=== PATIENT | female | born 1965 | race Caucasian/White ===

== ENCOUNTER → 2017-03-03 | Outpatient (POV) | payer BC, SELFPAY | PROVIDERS: Visit Provider Podiatrist ==

== ENCOUNTER 2017-03-28 09:45 | Outpatient (POV) | payer BC, SELFPAY | END 2017-03-28 11:53 | disposition home or self-care (01) | PROVIDERS: Visit Provider Podiatrist | DX: E11.42 Type 2 diabetes mellitus with diabetic polyneuropathy (principal); E11.621 Type 2 diabetes mellitus with foot ulcer; L89.619 Pressure ulcer of right heel, unspecified stage | CPT/HCPCS: 11042; 99213 ==

== ENCOUNTER → 2017-03-31 | Outpatient (POV) | payer BC, SELFPAY | PROVIDERS: Visit Provider Podiatrist ==

== ENCOUNTER 2017-04-20 10:23 | Outpatient (POV) | payer BC, SELFPAY | END 2017-04-20 12:07 | disposition home or self-care (01) | PROVIDERS: Visit Provider Podiatrist | DX: E11.42 Type 2 diabetes mellitus with diabetic polyneuropathy (principal); E11.621 Type 2 diabetes mellitus with foot ulcer; L97.401 Non-pressure chronic ulcer of unspecified heel and midfoot limited to breakdown of skin | CPT/HCPCS: 99212; 11042 ==

== ENCOUNTER 2017-05-02 10:26 | Outpatient (POV) | payer BC, SELFPAY | END 2017-05-02 16:21 | disposition home or self-care (01) | PROVIDERS: Visit Provider Podiatrist | DX: E11.621 Type 2 diabetes mellitus with foot ulcer (principal); L97.422 Non-pressure chronic ulcer of left heel and midfoot with fat layer exposed; G62.9 Polyneuropathy, unspecified | CPT/HCPCS: 99212; 11042 ==

== ENCOUNTER → 2017-05-12 | Outpatient (POV) | payer BC, SELFPAY | PROVIDERS: Visit Provider Podiatrist ==

== ENCOUNTER → 2017-05-17 | Outpatient (CLI) | payer BC, SELFPAY | PROVIDERS: Family Provider Family Medicine; Visit Provider Podiatrist | DX: E11.621 Type 2 diabetes mellitus with foot ulcer (principal); S91.301A Unspecified open wound, right foot, initial encounter; S91.302A Unspecified open wound, left foot, initial encounter; M79.605 Pain in left leg; M79.604 Pain in right leg | CPT/HCPCS: 93923 ==

== ENCOUNTER 2017-05-18 09:30 | Outpatient (RCR) | payer BC, SELFPAY | END 2017-05-18 23:59 | LOC: PT 09:30 | PROVIDERS: Visit Provider Podiatrist | DX: E11.621 Type 2 diabetes mellitus with foot ulcer (principal); S91.301A Unspecified open wound, right foot, initial encounter; S91.302A Unspecified open wound, left foot, initial encounter | CPT/HCPCS: 97163; 97597 ==

== ENCOUNTER 2017-06-01 10:00 | Outpatient (RCR) | payer BC, SELFPAY ==
--- NOTE | 2017-07-03 15:47 | HMH.RHREAS ---
Rehab Reassessment Rehab OP Re-assessment Start: 07/03/17 14:24 Freq: Status: Active Protocol: Document 07/03/17 14:24 ANDRES (Rec: 07/03/17 14:35 ANDRES [id number]) Electronically Signed By Juan A Su, PT 07/03/17 14:24 Rehab Re-assessment Subjective Subjective Pt reports left great toe wound re-opened 1-2 wks ago. Objective Objective Notes Left great toe wound: length = 1.0 cm, width = 1.0 cm, depth = 0.5 cm. Assessment Progress Assessment Progressing as Expected Assessment Notes Wound with heavy callous surrounding the wound opening. Patient goals met ST LT Goals Not Met ST,2,3,4 LT,2,3,4,5 Revised Goals none Plan Plan Continue per initial POC Frequency of Therapy 1-2 x/wk Duration of therapy 8 wks Time and Billing Re-Eval Time 15 Re-Eval Billing Units 1 PHYSICIAN CERTIFICATION: I certify the specified therapy services for Margareth Cardona are required, authorized, and reviewed every 30 days.
== END 2017-06-01 10:01 | disposition home or self-care (01) ==
LOC: PT 10:00
PROVIDERS: Visit Provider Podiatrist
DX: M79.671 Pain in right foot (principal); Z51.89 Encounter for other specified aftercare
CPT/HCPCS: 97164; 97597

== ENCOUNTER → 2017-06-08 10:24 | Outpatient (CLI) | payer BC, SELFPAY ==
--- NOTE | 2017-06-08 | XR_ITS ---
XR foot RT min 3V HISTORY: Pain and swelling lateral foot ITS.REASON: RT FOOT PAIN ORDERING PHYSICIAN: Zulema Hightower DPM PATIENT AGE: 51 years COMPARISON: None FINDINGS: Weightbearing views are performed. A transverse fracture involves the base of the fifth metatarsal with mild distraction of the fracture fragments by approximately 3 mm. No other significant anomalies are evident. IMPRESSION: Minimally distracted transverse fracture at the base of the fifth metatarsal
== END ==
PROVIDERS: PCP Family Medicine; Visit Provider Podiatrist
DX: M79.671 Pain in right foot (principal)
CPT/HCPCS: 73630

== ENCOUNTER → 2017-07-10 09:32 | Outpatient (CLI) | payer BC, SELFPAY ==
[2017-07-10 12:16] LABS: Basophils % 0.8 % (0.1-2.0); Eosinophils # 0.2 K/mm3 (0.0-0.4); Eosinophils % 2.9 % (0.1-12.0); Hematocrit 39.2 % (37.0-47.0); Hemoglobin 12.8 g/dL (12.2-16.2); Lymphocytes # 1.8 K/mm3 (0.7-4.5); Lymphocytes % 33.1 K/mm3 (10-50); Mean Corpuscular HGB Conc 32.6 g/dL (31.8-35.4); Mean Corpuscular Hemoglobin 30.6 pg (27.0-31.2); Mean Corpuscular Volume 93.7 fl (81-99); Mean Platelet Volume 7.1 fl (7.4-10.4); Monocytes # 0.3 K/mm3 (0.1-1.0); Monocytes % 5.1 % (1.7-9.3); Neutrophils # 3.1 K/mm3 (1.8-7.8); Neutrophils % 58.1 % (37.0-80.0); Platelet Count 188 K/mm3 (142-424); Red Blood Count 4.19 M/mm3 (4.20-5.40); Red Cell Distribution Width 13.1 % (11.5-17.5); White Blood Count 5.4 K/mm3 (4.8-10.8)
[2017-07-10 12:30] LABS: INR 1.78 (0.9-1.1); Prothrombin Time 19.3 seconds (9.4-11.8)
[2017-07-10 13:10] LABS: Hemoglobin A1C 6.6 % (0.0-7.0)
[2017-07-10 14:30] LABS: Erythrocyte Sedimentation Rate 24 mm/hr (0-30)
[2017-07-10 17:13] LABS: Chloride 106 mmol/L (98-107); Potassium 4.7 mmoL/L (3.5-5.1); Sodium 141 mmol/L (136-145)
[2017-07-10 17:34] LABS: Alanine Aminotransferase 69 U/L (12-78); Albumin Level 3.8 gm/dL (3.4-5.0); Alkaline Phosphatase 78 U/L (46-116); Anion Gap 12.7 mEq/L (5-15); Aspartate Amino Transferase 43 U/L (15-37); Bilirubin,Total 0.2 mg/dL (0.2-1.0); Blood Urea Nitrogen 26 mg/dL (7-18); C-Reactive Protein 1.1 mg/L (0.0-0.9); Calcium 9.5 mg/dL (8.5-10.1); Carbon Dioxide 27 mmol/L (21.0-32.0); Creatinine,Serum 1.23 mg/dL (0.55-1.02); Estimated Glomerular Filt Rate 46 ml/min (>60); GFR (African American) 55 ML/MIN (>60); Globulin 3.9 gm/dl (1.3-3.2); Glucose 151 mg/dL (74-106); Total Protein,Serum 7.7 gm/dL (6.4-8.2)
[2017-07-12 06:38] LABS: Vitamin D 25 Hydroxy 40.6 ng/mL (30.0-100.0)
== END ==
PROVIDERS: Visit Provider Podiatrist
DX: S99.191A Other physeal fracture of right metatarsal, initial encounter for closed fracture (principal)
CPT/HCPCS: 36415; 80053; 82652; 83036; 85025; 85610; 85651; 86140

== ENCOUNTER → 2017-07-10 09:47 | Outpatient (CLI) | payer BC, SELFPAY ==
--- NOTE | 2017-07-10 | XR_ITS ---
XR foot RT min 3V Ordering Physician: Zulema Hightower DPM Patient Age: 51 years: Female HISTORY: ITS.REASON: RT LEONG FX TECHNIQUE: 3 views right foot weightbearing COMPARISON :06/08/2017 FINDINGS: Weightbearing views are performed. A transverse fracture involves the base of the fifth metatarsal with slight progressive distraction and widening along the fracture zone.-Over 4 mm along its lateral aspect on today's oblique view..... Otherwise The forefoot is intact and unremarkable. IMPRESSION: Progressive widening and distraction at the transverse fracture at the base of the fifth metatarsal
== END ==
PROVIDERS: PCP Family Medicine; Visit Provider Podiatrist
DX: S99.191A Other physeal fracture of right metatarsal, initial encounter for closed fracture (principal)
CPT/HCPCS: 73630; 93005

== ENCOUNTER → 2017-07-11 08:53 | Outpatient (CLI) | payer BC, SELFPAY | PROVIDERS: Family Provider Family Medicine; PCP Family Medicine; Visit Provider Podiatrist | DX: Z71.3 Dietary counseling and surveillance (principal); E11.9 Type 2 diabetes mellitus without complications | CPT/HCPCS: 97802; G0108 ==

== ENCOUNTER 2017-07-12 07:42 | Day surgery (SDC) | payer BC, SELFPAY ==
[2017-07-11 13:21] VITALS: BMI 34.3
[2017-07-12] VITALS (12 sets, daily range): BP systolic 118–148; BP diastolic 65–95; PULSE 78–90; RESP 16–18; TEMP 35.9–43; O2SAT 93–99
--- NOTE | 2017-07-12 | XR_ITS ---
XR foot RT 2V HISTORY: Follow-up fracture ITS.REASON: ORIF OF LEONG FX ORDERING PHYSICIAN: Zulema Hightower DPM PATIENT AGE: 51 years Fluoroscopy time: 3 minutes and 5 seconds FINDINGS: Multiple images submitted the C-arm show interval placement of a longitudinal screw through the proximal aspect of the fifth metatarsal with good alignment of the fracture fragments and decreased distraction of the fracture fragments. IMPRESSION: Status post ORIF fifth metatarsal fracture in good alignment
--- NOTE | 2017-07-12 08:30 | HMH.ANESCL ---
[facility] Anesthesia Checklist - Patient Identification Patient Identification: Arm Band, Verbal (Name & ) - Structural Data Admitted From: Home Planned Operative Procedure/s: orif r 5th metatarsal Consent for Planned Operative Procedure(s) Verified: Yes Verified Documents: Surgical Consent - NPO Status Verified Time NPO: 00:00 - Chart Verification Results Verified: CBC, BMP - Additional verifications Patient : No Anesthesia Reactions: No Hx Blood Transfusions: No Blood Transfusion Reaction: No Cephalosporin Allergy: No Previous Colonoscopy: No - Cardiovascular Assessment Heart Sounds: S1 & S2 Pulse Strength: Baseline Pulse Rhythm: Regular Peripheral Edema: No - Airway Assessment C-Spine Mobility Assessed: Yes TMJ Mobility Assessed: Yes Dentition: Good Dentition - Neurological Assessment Level of Consciousness: Awake, Alert, Appropriate Hx Seizures: No Numbness or tingling in extremities: No - Anesthesia Plan Anesthesia Risk discussed: Yes ASA Class: III Anesthesia Type: General [facility] Anesthesia HX I have reviewed the patient's past medical history: Yes Medical History: Reports:: Chronic Obstructive Pulmonary Disease (COPD), Diabetes Mellitus Type 2 (on meds only), Gall Bladder Disease, Gastroesophageal Reflux Disease(GERD), Hypertension, MRSA (foot) Denies:: Cancer, Diabetes Mellitus Type 1, Internal Pacemaker Other Surgeries: Yes: Cardiac Catheterization, Mitral Valve Replacement, Other (open heart, gallbladder). No: Pacemaker Amputation: No Fractures: Yes *Family Hx:: Diabetes, Hypertension, Cancer
--- NOTE | 2017-07-12 08:33 | P.PN_ITS ---
[facility] Anesthesia Checklist - Patient Identification Patient Identification: Arm Band, Verbal (Name & ) - Structural Data Admitted From: Home Planned Operative Procedure/s: orif r 5th metatarsal Consent for Planned Operative Procedure(s) Verified: Yes Verified Documents: Surgical Consent - NPO Status Verified Time NPO: 00:00 - Chart Verification Results Verified: CBC, BMP - Additional verifications Patient : No Anesthesia Reactions: No Hx Blood Transfusions: No Blood Transfusion Reaction: No Cephalosporin Allergy: No Previous Colonoscopy: No - Cardiovascular Assessment Heart Sounds: S1 & S2 Pulse Strength: Baseline Pulse Rhythm: Regular Peripheral Edema: No - Airway Assessment C-Spine Mobility Assessed: Yes TMJ Mobility Assessed: Yes Dentition: Good Dentition - Neurological Assessment Level of Consciousness: Awake, Alert, Appropriate Hx Seizures: No Numbness or tingling in extremities: No - Anesthesia Plan Anesthesia Risk discussed: Yes ASA Class: III Anesthesia Type: General [facility] Anesthesia HX I have reviewed the patient's past medical history: Yes Medical History: Reports:: Chronic Obstructive Pulmonary Disease (COPD), Diabetes Mellitus Type 2 (on meds only), Gall Bladder Disease, Gastroesophageal Reflux Disease(GERD), Hypertension, MRSA (foot) Denies:: Cancer, Diabetes Mellitus Type 1, Internal Pacemaker Other Surgeries: Yes: Cardiac Catheterization, Mitral Valve Replacement, Other ( open heart, gallbladder). No: Pacemaker Amputation: No Fractures: Yes *Family Hx:: Diabetes, Hypertension, Cancer
[2017-07-12 09:11] LABS: HCG Qualitative, Serum Negative (Negative)
--- NOTE | 2017-07-12 12:51 | HMH.ANESI ---
[facility] Anesthesia Record Part I Intake, IV Amount: 1,500 Estimated blood loss (mL): 25 Urine output (mL): 0 Blood Pressure: 130/70 SaO2: 97 Pulse Rate: 90 Respiratory Rate: 16 Temperature: 99.3 F Patient is:: Drowsy, Stable Stable to PACU at:: 12:50
--- NOTE | 2017-07-12 12:51 | HMH.ANESII ---
[facility] Anesthesia Record Part II Discharge Time: 13:20 Destination: [facility] PACU nurse assessment reviewed?: Yes Patient Condition:: Good Anesthesia Complications:: None
--- NOTE | 2017-07-12 12:52 | P.PN_ITS ---
[facility] Anesthesia Record Part II Discharge Time: 13:20 Destination: [facility] PACU nurse assessment reviewed?: Yes Patient Condition:: Good Anesthesia Complications:: None
--- NOTE | 2017-07-12 12:52 | XR_ITS ---
XR foot LT min 3V HISTORY: Follow-up surgery/fracture ITS.REASON: post-op ORDERING PHYSICIAN: Zulema Hightower DPM PATIENT AGE: 51 years COMPARISON: 06/08/2017 FINDINGS: Longitudinal screw has been placed through the base of the fifth metatarsal adjoining knee transverse fracture without significant displacement with good alignment. Study is obtained through splint. There is a lucency over the base of the fourth metatarsal probably due to artifact from the splint. IMPRESSION: Status post ORIF with metatarsal fracture with good alignment
--- NOTE | 2017-07-12 12:53 | XR_ITS ---
XR foot RT min 3V HISTORY: ITS.REASON: post-op ORDERING PHYSICIAN: Zulema Hightower DPM PATIENT AGE: 51 years COMPARISON: 05/08/2017 FINDINGS: Bandage artifact is present at the metatarsal phalangeal junction. No fracture or dislocation. No bony destructive process. Normal alignment. IMPRESSION: Negative left foot.
--- NOTE | 2017-07-12 13:09 | PC.NURSE ---
pt eating ice chips, tolerating well. pt attempted to void per bedpan, no results noted.
--- NOTE | 2017-07-12 14:30 | SUR.OPER ---
tournequit applied although never inflated
--- NOTE | 2017-07-12 15:40 | HMH.OPNOTE ---
Date of procedure: 07/12/17 Pre-op Diagnosis:: Left Diabetic Sub 1st Metatarsal Ulcer Right 5th Metatarsal Displaced Ivan Fracture Post-op diagnosis:: same Procedure performed:: 1. Left wound debridement with application of (Hyalomatrix) wound graft 2. Right ORIF Ivan fracture Surgeon:: Zulema Hightower DPM TEST CENTER MANAGER:: Obed Piedra Anesthesia: GETA Estimated blood loss (mL): 10 Clinical Note:: Ms. Cardona is a 51 y/o DM female who presents for follow up of DM left sub 1st met ulcer. The left lateral foot blister has healed. Patient has been wearing U-shaped pads and seeing wound care. She is changing the dressing every 2 days with Purical and foam bandage. Patient is wearing post op shoe to left and short fracture boot on the right. She admits to not being NWB. She is FWB to right foot. She c/o pain to right foot when walking or prolonged WB. X-rays right foot 3 views 07/10/17 show a Ivan fracture, with worsening gapping and displacement on the lateral cortex. X-rays were shown and discussed with the patient. Patient is using the short pneumatic walking boot from a previous fracture. She states she is unstable on the crutches and a fall risk. Rx given today for a walker last visit, she presents to the office today without the walker. Patient is to be nonweightbearing and short fracture boot. We discussed the risks and benefits of surgery for a Ivan fracture. She understands that this fracture pattern is slow to heal. Patient is diabetic. I recommend she start vitamin D supplements. Her right foot wound and left lateral food wounds have healed. Given there is no open wound on the right foot, discussed surgery. Fracture Pre-op: Conservative treatment discussed but not recommended at this point, since the fracture is worsened, prominent against skin and there is increased pain. We discussed surgery. All risks and benefits were discussed including but not limited to: damage to blood vessels and nerves, bleeding, infection, wound complications, delayed or non-union of bone, post-traumatic arthritis, need for further surgery, need for removal of implant, implant failure, prolonged swelling of the extremity, prolonged pain, RSD/CRPs, DVT, loss of part of foot/limb, anesthetic complications, or even . No guarantees were given. All questions fully answered. The patient verbalized understanding and agreed to proceed with surgery. Consent was obtained. Necessary labs and pre-op testing ordered: CBC, CMP, ESR, CRP, HA1C, EKG, CXR, PT/INR. Pt will need Rx for pain. Rx given for Zofran, Motrin. She will need a new fracture boot and recommend rolling knee scooter. She has crutches and a walker but is unstable and I am afraid she may fall with crutches. Discussed with Dr. Ocasio. He will see the patient tomorrow for medical clearance. Plan to do the procedure percutaneously to avoid a large incision on a diabetic. May continue blood thinners as needed. Plan surgery for: Wedn 07/12/17 for right ORIF Ivan fracture Encounter for wound care 05/17/17 vascular studies: SOUTH R 1.1, L 1.2; TBI R 0.94, L 0.73; decreased amplitude in the left thigh and left ankle. DM Left sub 1st met wound: Wound noted with periwound callus. No drainage, no malodor noted. The wound was sharply excisionally debrided with a 15' blade thru skin into subq. The wound did not extend past subq into deep fascia. Post debridement: wound base granular, 0.4 x 0.6 cm and probes deeply 0.2 cm. Purical and optifoam dry dressing applied. We discussed once again the importance of wearing a dressing, socks, shoes at home. Continue off loading post op shoe. Continue U-shaped pads. Do not wear regular shoes. Change dressing with purical and optifoam dressing as applied today in office. Do not soak wound in the bathtub or get wet. Plan Wedn 07/12/17: left foot wound debridement with application of graft Operative findings:: Left sub 1st metatarsal ulcer skin into sub q layer. Post debridement measures 1.1
--- NOTE | 2017-07-12 15:43 | P.OP_ITS ---
Date of procedure: 07/12/17 Pre-op Diagnosis:: Left Diabetic Sub 1st Metatarsal Ulcer Right 5th Metatarsal Displaced Ivan Fracture Post-op diagnosis:: same Procedure performed:: 1. Left wound debridement with application of (Hyalomatrix) wound graft 2. Right ORIF Ivan fracture Surgeon:: Zulema Hightower DPM BIOINFORMATICS DEVELOPER:: Obed Piedra Anesthesia: GETA Estimated blood loss (mL): 10 Clinical Note:: Ms. Cardona is a 51 y/o DM female who presents for follow up of DM left sub 1st met ulcer. The left lateral foot blister has healed. Patient has been wearing U- shaped pads and seeing wound care. She is changing the dressing every 2 days with Purical and foam bandage. Patient is wearing post op shoe to left and short fracture boot on the right. She admits to not being NWB. She is FWB to right foot. She c/o pain to right foot when walking or prolonged WB. X-rays right foot 3 views 07/10/17 show a Ivan fracture, with worsening gapping and displacement on the lateral cortex. X-rays were shown and discussed with the patient. Patient is using the short pneumatic walking boot from a previous fracture. She states she is unstable on the crutches and a fall risk. Rx given today for a walker last visit, she presents to the office today without the walker. Patient is to be nonweightbearing and short fracture boot. We discussed the risks and benefits of surgery for a Ivan fracture. She understands that this fracture pattern is slow to heal. Patient is diabetic. I recommend she start vitamin D supplements. Her right foot wound and left lateral food wounds have healed. Given there is no open wound on the right foot , discussed surgery. Fracture Pre-op: Conservative treatment discussed but not recommended at this point, since the fracture is worsened, prominent against skin and there is increased pain. We discussed surgery. All risks and benefits were discussed including but not limited to: damage to blood vessels and nerves, bleeding, infection, wound complications, delayed or non-union of bone, post-traumatic arthritis, need for further surgery, need for removal of implant, implant failure, prolonged swelling of the extremity, prolonged pain, RSD/CRPs, DVT, loss of part of foot/ limb, anesthetic complications, or even . No guarantees were given. All questions fully answered. The patient verbalized understanding and agreed to proceed with surgery. Consent was obtained. Necessary labs and pre-op testing ordered: CBC, CMP, ESR, CRP, HA1C, EKG, CXR, PT/INR. Pt will need Rx for pain. Rx given for Zofran, Motrin. She will need a new fracture boot and recommend rolling knee scooter. She has crutches and a walker but is unstable and I am afraid she may fall with crutches. Discussed with Dr. Ocasio. He will see the patient tomorrow for medical clearance. Plan to do the procedure percutaneously to avoid a large incision on a diabetic. May continue blood thinners as needed. Plan surgery for: Wedn 07/12/17 for right ORIF Ivan fracture Encounter for wound care 05/17/17 vascular studies: SOUTH R 1.1, L 1.2; TBI R 0.94, L 0.73; decreased amplitude in the left thigh and left ankle. DM Left sub 1st met wound: Wound noted with periwound callus. No drainage, no malodor noted. The wound was sharply excisionally debrided with a 15' blade thru skin into subq. The wound did not extend past subq into deep fascia. Post debridement: wound base granular, 0.4 x 0.6 cm and probes deeply 0.2 cm. Purical and optifoam dry dressing applied. We discussed once again the importance of wearing a dressing, socks, shoes at home. Continue off loading post op shoe. Continue U-shaped pads. Do not wear regular shoes. Change dressing with purical and optifoam dressing as
[2017-07-20 15:02] LABS: POC Glucose,Bedside 121 mg/dL (70-110)
[2017-07-20 15:03] LABS: POC Glucose,Bedside 150 mg/dL (70-110)
== END 2017-07-12 14:35 | disposition home or self-care (01) ==
LOC: OR 07:43
PROVIDERS: Family Provider Family Medicine; PCP Family Medicine; Visit Provider Podiatrist
PROC: (CPT 11042; principal; 2017-07-12 09:15)
PROC: (CPT 11042; 2017-07-12 09:15)
DX: S92.351A Displaced fracture of fifth metatarsal bone, right foot, initial encounter for closed fracture (principal); E11.621 Type 2 diabetes mellitus with foot ulcer; L97.421 Non-pressure chronic ulcer of left heel and midfoot limited to breakdown of skin
CPT/HCPCS: 11042; 28485; 73620; 73630; 76000; 82962; 84703; 96374; C1713; J2405

== ENCOUNTER → 2017-07-27 16:10 | Outpatient (CLI) | payer BC, SELFPAY ==
--- NOTE | 2017-07-27 16:17 | XR_ITS ---
XR foot RT min 3V HISTORY: Follow-up fracture and ORIF ORDERING PHYSICIAN: Zulema Hightower DPM PATIENT AGE: 51 years COMPARISON: 07/12/2017 FINDINGS: Weightbearing views are performed. Study is obtained through splint. Longitudinal screw once again noted at the base of the fifth metatarsal. The spleen isn't obscures the fracture site. Fracture line however is once again noted with no significant displacement. Cannot determine if there is any callus formation due to the overlying artifact. IMPRESSION: No change status post ORIF fifth metatarsal fracture nondisplaced
== END ==
PROVIDERS: PCP Family Medicine; Visit Provider Podiatrist
DX: Z98.890 Other specified postprocedural states (principal)
CPT/HCPCS: 73630

== ENCOUNTER → 2017-08-07 15:22 | Outpatient (CLI) | payer BC, SELFPAY ==
--- NOTE | 2017-08-07 15:22 | XR_ITS ---
XR foot wt bearing RT 3V CLINICAL INDICATION: Follow-up surgery , Follow-up fracture ORDERING PHYSICIAN: Zulema Hightower DPM PATIENT AGE: 51 years COMPARISON: 07/27/2017 FINDINGS: Weightbearing views are performed. The cast has been removed. Longitudinal screw remains within the rostral aspect of the fifth metatarsal stabilizing the transverse fracture at the base of the fifth metatarsal. There is some mild separation of the fracture fragments by approximately 4 mm with good alignment. No callus formation evident at this time. There is a new somewhat irregular calcific density lateral to the calcaneal cuboid junction not readily apparent on the previous exams. This could be due to an avulsion fracture or development of myositis ossificans. There is some other minimal calcific debris just proximal to the screw head on the AP view. IMPRESSION: 1. No change status post ORIF fifth metatarsal fracture with good alignment and minimal separation. 2. 12 mm calcific density lateral to the calcaneocuboid joint which may represent either an avulsion fracture or myositis ossificans
== END ==
PROVIDERS: Visit Provider Podiatrist
DX: Z98.890 Other specified postprocedural states (principal)
CPT/HCPCS: 73630

== ENCOUNTER → 2017-08-22 16:00 | Outpatient (CLI) | payer BC, SELFPAY ==
--- NOTE | 2017-08-22 16:02 | XR_ITS ---
XR foot wt bearing RT 3V Ordering Physician: Zulema Hightower DPM Patient Age: 51 years: Female HISTORY: TECHNIQUE: 3 view right foot weightbearing COMPARISON :08/07/2017 FINDINGS Longitudinal screws is seen at the proximal fifth metatarsal. The lateral film shows persistent stable mild separation at the fracture zone most evident plantar aspect with mild distraction up to nearly4 mm mm towards plantar lateral aspect of the fracture. A more proximal calcification/or separate fracture fragment noted lateral the talar calcaneal joint again noted is most likely reflect a separate avulsion fracture fragment possibly from lateral proximal margin of the fifth metatarsal base. It vaguely seen on the initial post operative image 07/27/2017. In retrospect.. . IMPRESSION: ===== No change since previous study. ORIF base the fifth metatarsal fracture with good alignment stable distraction . Additional separate fracture fragment proximal this point. Uncertain origin but I suspect likely arises from margin of metatarsal head as seen on frontal projection
== END ==
PROVIDERS: Visit Provider Podiatrist
DX: S99.191A Other physeal fracture of right metatarsal, initial encounter for closed fracture (principal)
CPT/HCPCS: 73630

== ENCOUNTER → 2017-09-06 16:14 | Outpatient (CLI) | payer BC, SELFPAY | PROVIDERS: Visit Provider Podiatrist | DX: Z98.890 Other specified postprocedural states (principal) ==

== ENCOUNTER → 2017-09-07 07:55 | Outpatient (CLI) | payer BC, SELFPAY ==
--- NOTE | 2017-09-07 15:50 | XR_ITS ---
XR foot wt bearing RT 3V HISTORY: Follow-up fracture/ORIF ORDERING PHYSICIAN: Zulema Hightower DPM PATIENT AGE: 51 years COMPARISON: 08/22/2017 FINDINGS: Longitudinal screw once again noted within the proximal aspect of the fifth metatarsal with persistent mild separation at the fracture site. No significant callus formation. A displaced fragment is once again noted along the lateral aspect of the calcaneocuboid region not significantly changed. IMPRESSION: Overall no change status post ORIF right fifth metatarsal fracture with good alignment and mild separation of the fracture fragment. No change of the calcification lateral to the calcaneocuboid joint.
== END ==
PROVIDERS: Visit Provider Podiatrist
DX: Z98.890 Other specified postprocedural states (principal); Z51.89 Encounter for other specified aftercare
CPT/HCPCS: 73630; 87070; 87077; 87186; 87205

== ENCOUNTER → 2017-09-15 17:31 | Outpatient (CLI) | payer BC, SELFPAY ==
[2017-09-15 18:47] LABS: Blood Urea Nitrogen 28 mg/dL (7-18); Creatinine,Serum 1.63 mg/dL (0.55-1.02); Estimated Glomerular Filt Rate 33 ml/min (>60); GFR (African American) 40 ML/MIN (>60)
== END ==
PROVIDERS: Visit Provider Podiatrist
DX: M86.9 Osteomyelitis, unspecified (principal)
CPT/HCPCS: 36415; 82565; 84520

== ENCOUNTER → 2017-09-18 14:08 | Outpatient (CLI) | payer BC, SELFPAY ==
--- NOTE | 2017-09-18 14:15 | MR_ITS ---
MR foot LT wo/w con Ordering Physician: Zulema Hightower DPM Patient Age: 51 years: Female HISTORY: ITS.REASON: rule out osteomyelitis [openwound/ulcer plantar surface left foot around thepad ball of foot , beneath the base of big toe. Marker placed on this area. Pain associated with the wording. Wound present for one year patient is diabetic. TECHNIQUE: Multiplanar multisequence imaging performed on 1.5 T MR. Pre and postcontrast. Postcontrast images utilized 18 mL ProHance COMPARISON :09/07/2017 plain films left foot FINDINGS A marker is placed at the plantar aspect of foot just beneath the first metatarsal head.. Skin ulcer is seen at the medial ball of foot just inferior to the first MT head. Prominent diffuse thickening soft tissues of this region nearly 1 cm. This thick rim of tissue rest beneath the first metatarsal head. This rather homogeneous area of decreased T1 signal extends for 3 cm lengthx 2.5 cm transverse. There is edema & slight increased water signal throughout this area. It is homogeneous on the T1 but with surprising lack of enhancement within this area itself. There is enhancement of the soft tissues medial to the first metatarsal and this area... The underlying sesamoids beneath anterior first metatarsal head are well visualized and appear satisfactory as does the tendon through region. First metatarsal head satisfactory.. No evidence of osteomyelitis at the bones. There is some scant fluid at posterior to the first MTP joint.. . Postcontrast images through this region show surprisingly minimal enhancement . Images reviewed with Dr. Alexandra Mild arthritic changes likely at the IP joint of great toe. Minor reactive changes about this area. The other metatarsals and toes unremarkable. Upper normal joint fluid is seen at the second DP joint dorsally as well. IMPRESSION: ---- 1. No evidence of osteomyelitis on current study . 2. Prominent soft tissue thickening beneath first MTP joint and sesamoids. Has almost a masslike character with minimal enhancement, & minimal increased fluid/edema signal throughout. This may be compatible with a focal area of healing homogeneous granulation tissue-like mass rather than atypical cellulitis-given its lack of enhancement of this area itself. There is enhancement along the soft tissues adjacent to its medial aspect
== END ==
PROVIDERS: Family Provider Family Medicine; Visit Provider Podiatrist
DX: M86.9 Osteomyelitis, unspecified (principal)
CPT/HCPCS: 73720; A9576

== ENCOUNTER → 2017-09-21 15:11 | Outpatient (POV) | payer BC, SELFPAY | PROVIDERS: Family Provider Family Medicine; Visit Provider Dermatology | DX: Z00.00 Encounter for general adult medical examination without abnormal findings (principal) ==

== ENCOUNTER → 2017-10-02 16:58 | Outpatient (CLI) | payer BC, SELFPAY ==
--- NOTE | 2017-10-02 17:04 | XR_ITS ---
XR shoulder RT min 2V HISTORY:right shoulder pain ORDERING PHYSICIAN: Prabhakar Ocasio MD PATIENT AGE: 51 years COMPARISON: 12/04/2009 FINDINGS: No fracture or dislocation. No lytic or blastic change. There are severe subacromial stenosis. No lytic or blastic change. IMPRESSION: Subacromial stenosis which may result in impingement upon the supraspinatus tendon. This may be better evaluated with MRI if clinically warranted.
--- NOTE | 2017-10-02 17:04 | XR_ITS ---
XR knee RT 3V HISTORY: Right knee pain ORDERING PHYSICIAN: Prabhakar Ocasio MD PATIENT AGE: 51 years FINDINGS: No fracture or dislocation. No lytic or blastic change. Normal mineralization. No significant arthritic changes evident. No other significant findings IMPRESSION: Negative Knee
--- NOTE | 2017-10-02 17:05 | XR_ITS ---
XR hip LT 2-3V w/pelvis HISTORY: Left hip pain ORDERING PHYSICIAN: Prabhakar Ocasio MD PATIENT AGE: 51 years FINDINGS: There are mild osteoarthritic changes of the left hip with slight decrease in the joint space superiorly and small osteophytes of the acetabulum. Facet arthritic changes are present at L5-S1. No fracture or dislocation. No lytic or blastic change. IMPRESSION: Mild osteoarthritis of the left hip
== END ==
PROVIDERS: PCP Family Medicine; Visit Provider Family Medicine
DX: M25.561 Pain in right knee (principal); M25.511 Pain in right shoulder; M25.552 Pain in left hip
CPT/HCPCS: 73030; 73502; 73562

== ENCOUNTER → 2017-10-05 13:48 | Outpatient (CLI) | payer BC, SELFPAY ==
--- NOTE | 2017-10-05 13:48 | XR_ITS ---
XR foot wt bearing RT 3V HISTORY: Follow-up surgery ITS.REASON: post op views ORDERING PHYSICIAN: Zulema Hightower DPM PATIENT AGE: 52 years COMPARISON: 09/07/2017 FINDINGS: Longitudinal screw remains in place within the base of the fifth metatarsal. Fracture line remains present with nonbony union. Otherwise negative. Calcification within noted lateral to the calcaneocuboid junction unchanged and may represent an avulsion-type fracture IMPRESSION: Good alignment status post ORIF base of fifth metatarsal fracture. The fracture line remains present and well defined consistent with nonbony union
== END ==
PROVIDERS: Visit Provider Podiatrist
DX: Z98.890 Other specified postprocedural states (principal)
CPT/HCPCS: 73630

== ENCOUNTER 2017-10-26 15:00 | Outpatient (RCR) | payer BC, SELFPAY ==
--- NOTE | 2017-08-14 15:55 | HMH.PTOPWND ---
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 She also currently presents with cast on the right foot S/P screw fixation of right 5th MT fx with delayed healing. She has developed a blister onm the right heel which has required further care. PMH: DM Subjective Subjective Pt reports discomfort with cast wear, but otherwise no c/ o. Maintaining WB status well. Wound Eval Wound Right Posterior Heel Wound Type Blister Is This a Chronic Wound No Wound Length (cm) 1.0 Wound Width (cm) 1.2 Wound Bed Appearance [place] Wound Margins Description Well Defined Drainage Description Serous Wound Topical Solution/Irrigant Saline Irrigant Primary Dressing Composite Wound Debridement Method Forceps Left Great Toe Wound Type Diabetic Foot Ulcer Is This a Chronic Wound Yes Wound Length (cm) 1.0 Wound Width (cm) 1.0 Wound Bed Appearance Dusky Red Percentage Granulated (%) 100 Wound Margins Description Well Defined Drainage Description Serosanguineous Drainage Amount Small Wound Topical Solution/Irrigant Saline Irrigant Primary Dressing Puracol Wound Secondary Dressing Type Composite Wound Debridement Method Forceps Wound Problems/Impairments Impairments Problems/Impairmments Palpation Tenderness Impaired Walking Wound Care Needs Subjective C/O Pain Impaired Self Care/Self Management Prognosis Rehab Potential Good Clinical Impression Consistent with Diagnosis Yes Short Term Goals Number of Weeks 4 Decreased Palpation Tenderness Yes: to none Decrease Drainage Yes: by 100% [employer] Goals Number of Weeks 8 Patient to be Ind w/ HEP Yes Patient to be Ind w/ Home Wound Care/ Yes
--- NOTE | 2017-09-28 15:44 | HMH.RHREAS ---
Rehab Reassessment Rehab OP Re-assessment Start: 09/28/17 15:37 Freq: Status: Active Protocol: Document 09/28/17 15:41 ANDRES (Rec: 09/28/17 15:44 ANDRES [id number]) Electronically Signed By Juan A Su, PT 09/28/17 15:41 Rehab Re-assessment Subjective Subjective Pt reporting increased serosanguineous drainage from left foot wound forcing her to change dressing twice daily. Objective Objective Notes Left DFU: Length= 1.4 cm, Width= 1.7 cm, Depth= 1.1 cm. Appears to be 100% granulation tissue. Assessment Progress Assessment Slower Than Expected Patient goals met ST LT Goals Not Met ST LT Revised Goals none Plan Plan Continue per initial POC. Frequency of Therapy 2x/wk Duration of therapy 8 wks Time and Billing Re-Eval Time 15 Re-Eval Billing Units 1 PHYSICIAN CERTIFICATION: I certify the specified therapy services for Margareth Cardona are required, authorized, and reviewed every 30 days.
== END 2017-10-26 15:01 | disposition home or self-care (01) ==
LOC: PT 15:00
PROVIDERS: Family Provider Family Medicine; Visit Provider Podiatrist
DX: L97.429 Non-pressure chronic ulcer of left heel and midfoot with unspecified severity (principal)
CPT/HCPCS: 97164; 97597

== ENCOUNTER → 2017-10-31 10:00 | Outpatient (CLI) | payer BC, SELFPAY ==
--- NOTE | 2017-10-31 10:01 | XR_ITS ---
XR foot wt bearing LT 3V HISTORY: Follow-up surgery, pain, redness and swelling ITS.REASON: post-op views ORDERING PHYSICIAN: Zulema Hightower DPM PATIENT AGE: 52 years COMPARISON: 05/08/2017 FINDINGS: No fracture or dislocation. No lytic or blastic change. No bony erosive process evident. There is mild prominence of the soft tissues medial to the distal aspect of the first metatarsal and first MTP joint. No soft tissue gas. IMPRESSION: Mild soft tissue swelling at the medial aspect of the first MTP joint otherwise negative
--- NOTE | 2017-10-31 10:01 | XR_ITS ---
XR foot wt bearing RT 3V HISTORY: Follow-up surgery ITS.REASON: Post-op views ORDERING PHYSICIAN: Zulema Hightower DPM PATIENT AGE: 52 years COMPARISON: 10/05/2017 FINDINGS: No change status post ORIF fifth metatarsal fracture. Longitudinal screw remains in place stabilizing nondisplaced fracture at the base of the fifth metatarsal. Fracture line still visible. Faint lucency is noted along the proximal aspect of the screw head not significant change. IMPRESSION: Overall no change status post ORIF ununited fifth metatarsal fracture
[2017-10-31 11:51] LABS: Basophils % 0.5 % (0.1-2.0); Eosinophils # 0.2 K/mm3 (0.0-0.4); Eosinophils % 2.4 % (0.1-12.0); Hematocrit 34.4 % (37.0-47.0); Hemoglobin 10.7 g/dL (12.2-16.2); Lymphocytes # 1.5 K/mm3 (0.7-4.5); Lymphocytes % 23.6 K/mm3 (10-50); Mean Corpuscular Hemoglobin 28.9 pg (27.0-31.2); Mean Corpuscular Volume 93.3 fl (81-99); Monocytes # 0.3 K/mm3 (0.1-1.0); Monocytes % 5.5 % (1.7-9.3); Neutrophils # 4.2 K/mm3 (1.8-7.8); Platelet Count 231 K/mm3 (142-424); Red Blood Count 3.69 M/mm3 (4.20-5.40); Red Cell Distribution Width 14.7 % (11.5-17.5); White Blood Count 6.1 K/mm3 (4.8-10.8)
[2017-10-31 12:31] LABS: Erythrocyte Sedimentation Rate 47 mm/hr (0-30)
[2017-10-31 15:33] LABS: Alanine Aminotransferase 42 U/L (12-78); Albumin Level 3.5 gm/dL (3.4-5.0); Albumin/Globulin Ratio 0.9 (1.1-1.8); Alkaline Phosphatase 93 U/L (46-116); Anion Gap 16.1 mEq/L (5-15); Aspartate Amino Transferase 32 U/L (15-37); Bilirubin,Total 0.2 mg/dL (0.2-1.0); Blood Urea Nitrogen 30 mg/dL (7-18); C-Reactive Protein 3.3 mg/L (0.0-0.9); Calcium 8.9 mg/dL (8.5-10.1); Carbon Dioxide 27 mmol/L (21.0-32.0); Chloride 105 mmol/L (98-107); Creatinine,Serum 1.38 mg/dL (0.55-1.02); Estimated Glomerular Filt Rate 40 ml/min (>60); GFR (African American) 48 ML/MIN (>60); Globulin 3.7 gm/dl (1.3-3.2); Glucose 123 mg/dL (74-106); Potassium 5.1 mmoL/L (3.5-5.1); Sodium 143 mmol/L (136-145); Total Protein,Serum 7.2 gm/dL (6.4-8.2)
== END ==
PROVIDERS: Visit Provider Podiatrist
DX: Z98.890 Other specified postprocedural states (principal); S99.191A Other physeal fracture of right metatarsal, initial encounter for closed fracture; E11.621 Type 2 diabetes mellitus with foot ulcer; L97.523 Non-pressure chronic ulcer of other part of left foot with necrosis of muscle
CPT/HCPCS: 36415; 73630; 80053; 85025; 85651; 86140

== ENCOUNTER → 2017-11-14 15:36 | Outpatient (CLI) | payer BC, SELFPAY ==
--- NOTE | 2017-11-14 15:38 | XR_ITS ---
XR foot wt bearing RT 3V HISTORY: Follow-up surgery, fracture, pain ITS.REASON: post-op views ORDERING PHYSICIAN: Zulema Hightower DPM PATIENT AGE: 52 years COMPARISON: 10/31/2017 FINDINGS: Status post ORIF fifth metatarsal fracture. Longitudinal screw remains within proximal aspect of the fifth metatarsal. Fracture line is still present and there is persistent lucency around the proximal aspect of the screw similar to the previous exam. A separate bony fragment is once again noted at the calcaneal cuboid region. IMPRESSION: Overall no change status post ORIF fifth metatarsal fracture with persistent fracture line and lucency at the base of the screw
== END ==
PROVIDERS: Visit Provider Podiatrist
DX: Z98.890 Other specified postprocedural states (principal)
CPT/HCPCS: 73630

== ENCOUNTER → 2017-11-28 16:17 | Outpatient (CLI) | payer BC, SELFPAY ==
--- NOTE | 2017-11-28 16:18 | XR_ITS ---
XR foot wt bearing LT 3V HISTORY: Diabetic ulcer on ball of foot ITS.REASON: pain ORDERING PHYSICIAN: Zulema Hightower DPM PATIENT AGE: 52 years COMPARISON: None FINDINGS: No fracture or dislocation. No lytic or blastic change. There is normal mineralization.. The joint spaces are well-preserved. No significant degenerative/arthritic changes. No erosive changes evident. IMPRESSION: Negative, no acute finding
--- NOTE | 2017-11-28 16:18 | XR_ITS ---
XR foot wt bearing RT 3V HISTORY: Follow-up fracture/ORIF ITS.REASON: pain ORDERING PHYSICIAN: Zulema Hightower DPM PATIENT AGE: 52 years COMPARISON: None FINDINGS: A longitudinal screw once again noted in the proximal aspect of the fifth metatarsal. There is good alignment. There remains some mild distraction of the fracture fragments. There remains a small zone of lucency around the proximal aspect of this root at the proximal fracture fragment probably not significantly changed. There is an additional displaced fragment at the calcaneal cuboid region as previously described. IMPRESSION: Overall no change status post ORIF of fifth metatarsal fracture as described above
[2017-11-28 17:02] LABS: Basophils % 0.5 % (0.1-2.0); Eosinophils # 0.1 K/mm3 (0.0-0.4); Eosinophils % 1.6 % (0.1-12.0); Hematocrit 38.2 % (37.0-47.0); Hemoglobin 11.7 g/dL (12.2-16.2); Lymphocytes # 1.6 K/mm3 (0.7-4.5); Lymphocytes % 22.8 K/mm3 (10-50); Mean Corpuscular HGB Conc 30.8 g/dL (31.8-35.4); Mean Corpuscular Volume 91.2 fl (81-99); Mean Platelet Volume 7.8 fl (7.4-10.4); Monocytes # 0.3 K/mm3 (0.1-1.0); Monocytes % 4.5 % (1.7-9.3); Neutrophils % 70.6 % (37.0-80.0); Platelet Count 294 K/mm3 (142-424); Red Blood Count 4.19 M/mm3 (4.20-5.40); Red Cell Distribution Width 14.1 % (11.5-17.5); White Blood Count 7.1 K/mm3 (4.8-10.8)
[2017-11-28 18:13] LABS: Alanine Aminotransferase 43 U/L (12-78); Albumin Level 3.6 gm/dL (3.4-5.0); Albumin/Globulin Ratio 0.9 (1.1-1.8); Alkaline Phosphatase 112 U/L (46-116); Anion Gap 11.9 mEq/L (5-15); Aspartate Amino Transferase 31 U/L (15-37); Bilirubin,Total 0.2 mg/dL (0.2-1.0); Blood Urea Nitrogen 28 mg/dL (7-18); C-Reactive Protein 4.2 mg/L (0.0-0.9); Calcium 9.2 mg/dL (8.5-10.1); Carbon Dioxide 28 mmol/L (21.0-32.0); Chloride 105 mmol/L (98-107); Creatinine,Serum 1.93 mg/dL (0.55-1.02); Estimated Glomerular Filt Rate 27 ml/min (>60); GFR (African American) 33 ML/MIN (>60); Globulin 4.1 gm/dl (1.3-3.2); Glucose 125 mg/dL (74-106); Potassium 4.9 mmoL/L (3.5-5.1); Sodium 140 mmol/L (136-145); Total Protein,Serum 7.7 gm/dL (6.4-8.2)
[2017-11-28 18:14] LABS: Hemoglobin A1C 6.8 % (0.0-7.0)
[2017-11-28 18:28] LABS: Erythrocyte Sedimentation Rate 73 mm/hr (0-30)
== END ==
PROVIDERS: Visit Provider Podiatrist
DX: S91.302A Unspecified open wound, left foot, initial encounter (principal); E11.9 Type 2 diabetes mellitus without complications
CPT/HCPCS: 36415; 73630; 80053; 83036; 85025; 85651; 86140; 87070; 87077; 87186; 87205

== ENCOUNTER → 2017-12-05 11:05 | Outpatient (CLI) | payer BC, SELFPAY ==
--- NOTE | 2017-12-05 11:30 | XR_ITS ---
XR chest 2V HISTORY: ITS.REASON: HTN ORDERING PHYSICIAN: Zulema Hightower DPM PATIENT AGE: 52 years COMPARISON: PA and lateral chest 10/24/2008 FINDINGS: The cardiomediastinal silhouette and pulmonary vascularity are within normal limits. There is a prosthetic cardiac valve likely mitral valve. Sternal wire sutures noted. The lungs are clear without infiltrates, suspicious nodules, or pleural effusions. No acute bony abnormalities. IMPRESSION: Negative chest, no acute finding
[2017-12-05 11:46] LABS: Basophils % 0.5 % (0.1-2.0); Eosinophils # 0.1 K/mm3 (0.0-0.4); Eosinophils % 2.4 % (0.1-12.0); Hematocrit 36.2 % (37.0-47.0); Hemoglobin 11.2 g/dL (12.2-16.2); Lymphocytes # 1.3 K/mm3 (0.7-4.5); Lymphocytes % 23.9 K/mm3 (10-50); Mean Corpuscular HGB Conc 30.9 g/dL (31.8-35.4); Mean Corpuscular Hemoglobin 27.7 pg (27.0-31.2); Mean Corpuscular Volume 89.5 fl (81-99); Mean Platelet Volume 7.3 fl (7.4-10.4); Monocytes # 0.3 K/mm3 (0.1-1.0); Monocytes % 5.2 % (1.7-9.3); Neutrophils # 3.7 K/mm3 (1.8-7.8); Platelet Count 262 K/mm3 (142-424); Red Blood Count 4.04 M/mm3 (4.20-5.40); Red Cell Distribution Width 14.2 % (11.5-17.5); White Blood Count 5.4 K/mm3 (4.8-10.8)
[2017-12-05 11:53] LABS: INR 1.92 (0.9-1.1); Prothrombin Time 19.4 seconds (9.4-11.8)
[2017-12-05 12:56] LABS: Erythrocyte Sedimentation Rate 52 mm/hr (0-30)
[2017-12-05 13:06] LABS: Alanine Aminotransferase 41 U/L (12-78); Albumin Level 3.2 gm/dL (3.4-5.0); Albumin/Globulin Ratio 0.9 (1.1-1.8); Alkaline Phosphatase 98 U/L (46-116); Anion Gap 13.6 mEq/L (5-15); Aspartate Amino Transferase 28 U/L (15-37); Bilirubin,Total 0.2 mg/dL (0.2-1.0); Blood Urea Nitrogen 30 mg/dL (7-18); C-Reactive Protein 2.3 mg/L (0.0-0.9); Calcium 8.9 mg/dL (8.5-10.1); Carbon Dioxide 27 mmol/L (21.0-32.0); Chloride 107 mmol/L (98-107); Creatinine,Serum 1.72 mg/dL (0.55-1.02); Estimated Glomerular Filt Rate 31 ml/min (>60); GFR (African American) 38 ML/MIN (>60); Globulin 3.7 gm/dl (1.3-3.2); Glucose 183 mg/dL (74-106); Potassium 4.6 mmoL/L (3.5-5.1); Sodium 143 mmol/L (136-145); Total Protein,Serum 6.9 gm/dL (6.4-8.2)
== END ==
PROVIDERS: PCP Family Medicine; Visit Provider Podiatrist
DX: Z01.818 Encounter for other preprocedural examination (principal); S91.302A Unspecified open wound, left foot, initial encounter
CPT/HCPCS: 36415; 71046; 80053; 85025; 85610; 85651; 85730; 86140; 93005

== ENCOUNTER 2017-12-28 15:30 | Outpatient (RCR) | payer BC, SELFPAY ==
--- NOTE | 2017-11-24 17:26 | HMH.PTOPEV ---
PT Outpatient Evaluation Rehab PT Outpatient Evaluation Start: 11/24/17 17:04 Freq: Status: Active Protocol: Document 11/24/17 17:04 AARON (Rec: 11/24/17 17:25 AARON [id number]) Electronically Signed By Gerald Buitrago, PT 11/24/17 17:04 Outpatient Therapy Subjective History Subjective History Patient is a 52 year old female presenting to outpatient PT with reports of R shoulder pain of insidious onset starting approximately 3 years ago that has progressively gotten worse over the past month. No previous shoulder injury to report. She most recently had a cortisone injection in the right shoulder that has provided some significant relief. Most recent diagnostics indicate subacromial stenosis. Comorbidities: diabetes, cholecystectomy, open heart surgery, diabetic foot ulcer, recent R foot ORIF/fracture. Chief Complaint Pain Symptom Type Ache Symptoms Relieved By Rest/Positioning OTC Meds Symptoms Aggravated By Physical Activity Lifting Prior Functional Limitations None Current Functional Limitations Reaching Lifting Housework Sleeping Recreation Activity Level of pain today (0-10) 0 Pain scale - at its best (0-10) 0 Pain scale - at its worst (0-10) 7 Shoulder/Elbow Eval Shoulder Objective Measurements Palpation Tenderness tenderness over the SA bursa shoulder right exam standard Shoulder Palpation Findings Tenderness Shoulder Palpation Overall Comment R ACJ and supraspinatus. Posture Shoulder Posture Sitting Position (L) Rounded (R) Rounded Shoulder Posture Standing Position (L) Rounded (R) Rounded Flexibilty Deficits Pectoralis Minor Muscle Length (R) Moderate Tightness (L) Moderate Tightness Shoulder ROM Right Shoulder ROM Limitations Bony Restriction Shoulder Abduction Active Range of 132 Motion (degrees) Shoulder Flexion Active Range of Motion 138 (degrees) Query Text:
--- NOTE | 2017-12-28 16:07 | HMH.RHREAS ---
Rehab Reassessment Rehab OP Re-assessment Start: 12/28/17 15:26 Freq: Status: Active Protocol: Document 12/28/17 15:26 AARON (Rec: 12/28/17 16:06 AARON [id number]) Electronically Signed By Gerald Buitrago, PT 12/28/17 15:26 Rehab Re-assessment Subjective Subjective Pt reports 50% improvement. Objective Objective Notes AROM: R flexion 144, abd 142, ER 90 IR 70 MMT:R flexion 4/5, abd 4-/5, elbow flexion/ext 5/5, ER 3+/5 , IR 4+/5 Pain:07/01 TTP: LHB tendon, R ACJ Neuro: WNL Special tests: positive michael, empty can, speeds and obriens Assessment Progress Assessment Progressing as Expected Assessment Notes Pt continues to experience intermittent symtpom exacerbation and strength deficits that contribute to functional limitaitons with household, ADL and recreational activity. Rx has consisted of RTC/ interscapular strengthening, GH/ST/AC joint mobility and modalities for pain modulation /anti-inflammatory purposes. Patient goals met STG's Goals Not Met LTG's Revised Goals NA Plan Plan Continue with POC. Frequency of Therapy 2 Duration of therapy 4 weeks. Time and Billing Re-Eval Time 15 Re-Eval Billing Units 1 PHYSICIAN CERTIFICATION: I certify the specified therapy services for Margareth Cardona are required, authorized, and reviewed every 30 days.
== END 2017-12-28 15:31 | disposition home or self-care (01) ==
LOC: PT 15:30
PROVIDERS: Family Provider Family Medicine; PCP Family Medicine; Visit Provider Orthopaedic Surgery
DX: M75.41 Impingement syndrome of right shoulder (principal)
CPT/HCPCS: 97010; 97014; 97016; 97033; 97035; 97110; 97140; 97163; 97164; G0283

== ENCOUNTER → 2018-01-01 16:44 | Outpatient (CLI) | payer BC, SELFPAY ==
[2018-01-01 17:00] LABS: Basophils % 0.6 % (0.1-2.0); Eosinophils # 0.2 K/mm3 (0.0-0.4); Eosinophils % 2.9 % (0.1-12.0); Hematocrit 34.6 % (37.0-47.0); Lymphocytes # 1.5 K/mm3 (0.7-4.5); Mean Corpuscular HGB Conc 31.9 g/dL (31.8-35.4); Mean Corpuscular Hemoglobin 28.5 pg (27.0-31.2); Mean Corpuscular Volume 89.3 fl (81-99); Mean Platelet Volume 6.8 fl (7.4-10.4); Monocytes # 0.4 K/mm3 (0.1-1.0); Monocytes % 6.6 % (1.7-9.3); Neutrophils # 3.8 K/mm3 (1.8-7.8); Neutrophils % 64.9 % (37.0-80.0); Platelet Count 211 K/mm3 (142-424); Red Blood Count 3.87 M/mm3 (4.20-5.40); Red Cell Distribution Width 15.4 % (11.5-17.5); White Blood Count 5.8 K/mm3 (4.8-10.8)
[2018-01-01 18:35] LABS: Erythrocyte Sedimentation Rate 51 mm/hr (0-30)
[2018-01-01 18:51] LABS: C-Reactive Protein 15.7 mg/L (0.0-0.9)
== END ==
PROVIDERS: Visit Provider Podiatrist
DX: Z98.890 Other specified postprocedural states (principal)
CPT/HCPCS: 36415; 85025; 85651; 86140

== ENCOUNTER → 2018-01-04 15:19 | Outpatient (CLI) | payer BC, SELFPAY ==
--- NOTE | 2018-01-04 15:22 | MR_ITS ---
MR shoulder RT wo con HISTORY: ITS.REASON: ACUTE PAIN OF RIGHT SHOULDER ORDERING PHYSICIAN: Prabhakar Ocasio MD PATIENT AGE: 52 years Comparison: None TECHNIQUE: Standard multiplanar multiecho sequences are performed without contrast. FINDINGS: There is complete tear of the supraspinatus tendon with retraction of the musculotendinous fibers by at least 2 cm there is irregularity of the distal aspect of the retracted supraspinatus tendon. Osteoarthritic changes with hypertrophy is present at the acromioclavicular joint and there is some spurring along the undersurface of the acromion with mild subacromial stenosis of 5 mm. The infraspinatus, teres minor, and subscapularis tendons appear intact with some mild tendinopathy/tendinosis of the subscapularis. No evidence of labral tear. There is a medium-sized shoulder joint effusion. The bicipital tendon is in place. There is cortical irregularity of the humeral head at the greater tuberosity IMPRESSION: 1. Complete tear of the supraspinatus tendon with retraction of the musculotendinous fibers 2. Acromioclavicular arthropathy with mild hypertrophic change of the undersurface of the acromion with medium-sized joint effusion
== END ==
PROVIDERS: Family Provider Family Medicine; PCP Family Medicine; Visit Provider Family Medicine
DX: M25.511 Pain in right shoulder (principal)
CPT/HCPCS: 73221

== ENCOUNTER → 2018-01-23 12:29 | Outpatient (CLI) | payer BC, SELFPAY ==
--- NOTE | 2018-01-23 12:29 | XR_ITS ---
XR foot wt bearing LT 3V HISTORY: Follow-up surgery ITS.REASON: postop views ORDERING PHYSICIAN: Zuleam Hightower DPM PATIENT AGE: 52 years COMPARISON: 12/08/2017 FINDINGS: Status post amputation of the distal aspect of the first metatarsal similar to the previous exam with approximately 1 cm between the base of the proximal phalanx of the great toe and the distal aspect of the stump. There is some decreased density at the stump site having developed in the interval. No bony erosive process however evident. The proximal phalanx of the great toe is slightly displaced posteriorly by approximately 1 cm. No other significant anomalies are evident. IMPRESSION: Status post amputation at the distal aspect of the first metatarsal. There is 1 cm dorsal displacement of the proximal phalanx of the great toe
[2018-01-23 13:09] LABS: Hemoglobin A1C 6.4 % (0.0-7.0)
[2018-01-23 13:21] LABS: Basophils % 0.5 % (0.1-2.0); Eosinophils # 0.1 K/mm3 (0.0-0.4); Eosinophils % 2.1 % (0.1-12.0); Hematocrit 33.5 % (37.0-47.0); Hemoglobin 10.4 g/dL (12.2-16.2); Lymphocytes # 1.3 K/mm3 (0.7-4.5); Lymphocytes % 29.1 K/mm3 (10-50); Mean Corpuscular HGB Conc 31.1 g/dL (31.8-35.4); Mean Corpuscular Hemoglobin 27.3 pg (27.0-31.2); Mean Platelet Volume 6.9 fl (7.4-10.4); Monocytes # 0.3 K/mm3 (0.1-1.0); Monocytes % 6.9 % (1.7-9.3); Neutrophils # 2.8 K/mm3 (1.8-7.8); Neutrophils % 61.4 % (37.0-80.0); Platelet Count 240 K/mm3 (142-424); Red Cell Distribution Width 15.3 % (11.5-17.5); White Blood Count 4.5 K/mm3 (4.8-10.8)
[2018-01-23 13:56] LABS: Alanine Aminotransferase 24 U/L (12-78); Albumin Level 3.3 gm/dL (3.4-5.0); Albumin/Globulin Ratio 0.9 (1.1-1.8); Alkaline Phosphatase 66 U/L (46-116); Anion Gap 16.1 mEq/L (5-15); Aspartate Amino Transferase 18 U/L (15-37); Bilirubin,Total 0.2 mg/dL (0.2-1.0); Blood Urea Nitrogen 27 mg/dL (7-18); C-Reactive Protein 2.6 mg/L (0.0-0.9); Calcium 8.4 mg/dL (8.5-10.1); Carbon Dioxide 25 mmol/L (21.0-32.0); Chloride 108 mmol/L (98-107); Creatinine,Serum 1.79 mg/dL (0.55-1.02); Estimated Glomerular Filt Rate 30 ml/min (>60); GFR (African American) 36 ML/MIN (>60); Globulin 3.6 gm/dl (1.3-3.2); Glucose 129 mg/dL (74-106); Potassium 5.1 mmoL/L (3.5-5.1); Sodium 144 mmol/L (136-145); Total Protein,Serum 6.9 gm/dL (6.4-8.2)
[2018-01-23 14:54] LABS: Erythrocyte Sedimentation Rate 52 mm/hr (0-30)
== END ==
PROVIDERS: Visit Provider Podiatrist
DX: Z51.89 Encounter for other specified aftercare (principal); Z98.890 Other specified postprocedural states
CPT/HCPCS: 36415; 73630; 80053; 83036; 85025; 85651; 86140

== ENCOUNTER → 2018-01-23 12:46 | Outpatient (CLI) | payer BC, SELFPAY | PROVIDERS: Family Provider Family Medicine; PCP Family Medicine; Visit Provider Podiatrist | DX: Z98.890 Other specified postprocedural states (principal) ==

== ENCOUNTER 2018-02-08 13:10 | Outpatient (CLI) | payer BC, SELFPAY ==
[2018-02-08] VITALS (9 sets, daily range): BP systolic 130–141; BP diastolic 70–83; PULSE 75–81; RESP 16–20; TEMP 36.6–36.8; O2SAT 97–100
== END 2018-02-08 17:15 | disposition home or self-care (01) ==
LOC: INF 13:10
PROVIDERS: Family Provider Family Medicine; PCP Family Medicine; Visit Provider Podiatrist
DX: L03.90 Cellulitis, unspecified (principal)
CPT/HCPCS: 96365; 96366; J2407

== ENCOUNTER 2018-02-21 15:30 | Outpatient (RCR) | payer BC, SELFPAY ==
--- NOTE | 2018-01-17 15:51 | HMH.PTOPWND ---
Rehab Outpt Wound Evaluation Rehab OP Wound Evaluation Start: 01/17/18 15:30 Freq: Status: Active Protocol: Document 01/17/18 15:36 ANDRES (Rec: 01/17/18 15:50 PHORNE [id number]) Electronically Signed By Juan A Su, PT 01/17/18 15:36 Subjective/History History History Pt is 52 yowf who presents ~ 1 mo S/P left foot surgery for sesamoid removal and 1st MT head transection. She had adequate healing, but suffered dehisence of the plantar incision after sutures were removed. She reports no c/o pain, but continued edema and erythema throughout the periwound area. She had hx of ~ 1 yr chronic plantar foot wound prior to this procedure. She has a hx of DM-II, COPD, MRSA, PAD. Subjective Subjective No current c/o this pm. Wound Eval Wound Left Dorsal Great Toe Wound Type Incision Is This a Chronic Wound No Wound Length (cm) 1.6 Wound Width (cm) 1.5 Wound Bed Appearance Beefy Red Percentage Granulated (%) 100 Wound Margins Description Well Defined Surrounding Tissue Appearance [place] Bright Red Surrounding Tissue Temperature Warm Drainage Description Serosanguineous Drainage Amount Small Drainage Odor No Odor Packing Type Collagen Comment silvasorb gel prior to puracol Wound Secondary Dressing Type Composite Wound Debridement Method Sharps Forceps Wound Debridement Amount of Tissue Minimal Removed Wound Problems/Impairments Impairments Problems/Impairmments Increased Edema Wound Care Needs Impaired Self Care/Self Management Prognosis Rehab Potential Good Clinical Impression Consistent with Diagnosis Yes Short Term Goals Number of Weeks 4 Decrease Edema Yes: by 50% Decrease Wound Area Yes: by 50% [employer] Goals Number of Weeks 8 Decrease Edema Yes: by 100% Decrease Wound Area Yes: by 100% Patient to be Ind w/ Home Wound Care/ Yes Dressing Changes Outpatient Therapy Plan of Care Treatment Plan May Include Therapeutic Exercise
== END 2018-02-21 16:00 | disposition home or self-care (01) ==
LOC: PT 15:30
PROVIDERS: Family Provider Family Medicine; PCP Family Medicine; Visit Provider Podiatrist
DX: Z98.890 Other specified postprocedural states (principal)
CPT/HCPCS: 97162

== ENCOUNTER → 2018-04-04 12:52 | Outpatient (CLI) | payer BC, SELFPAY ==
--- NOTE | 2018-04-04 12:53 | XR_ITS ---
XR shoulder RT min 2V Ordering Physician: Zulema Hightower DPM Patient Age: 52 years: Female HISTORY: ITS.REASON: supraspinatus, axillary and grashy views TECHNIQUE: 3 views right shoulder AP view, supraspinatus view, Transaxillary view COMPARISON : 09/22/2017 right shoulder FINDINGS . No fracture or acute findings. Glenohumeral joint is intact. Humeral head and neck appear intact. The acromion is slight lateral extension with downward sloping on the frontal projection. This can contribute to impingement symptoms and sequela if present... . AC joint intact with only some scant inferior spurring and hypertrophy IMPRESSION: . Glenohumeral joint is intact. Mild AC joint arthropathy, hypertrophy. Slight downward sloping of acromion noted
--- NOTE | 2018-04-04 12:53 | XR_ITS ---
XR foot wt bearing LT 3V Ordering Physician: Zulema Hightower DPM Patient Age: 52 years: Female HISTORY: ITS.REASON: pain and swelling Patient has swelling left foot TECHNIQU E: 3 views left foot, weightbearing. COMPARISON : January 23, 2018 left foot post amputation. November 2017 FINDINGS Patient underwent amputation of the first metatarsal near January 23.. On those prior exams there was a a sharp delineation at the amputation site. The margin of bone now has a more serrated appearance and there is some additional bony proliferation along lateral margin. Also some scant bony material just distal to the to the amputation site... Diffuse soft tissue swelling about this area. Difficult to exclude infection or or possible developing or spondylitis with overall appearance. The base of the proximal phalanx is intact . On the lateral view does demonstrate slight posterior offset relative to the anterior stump of first MTP but this is stable since initial 01/23/2018 studies The second, third, fourth, fifth ray appear intact. The metatarsals intact. IMPRESSION: Amputation distal neck first metatarsal. Again evident Irregular serrated appearance at the healing osteotomy site. This is With associated generous focal soft tissue swelling about this region. Findings reflect inflammation, with concern regarding developing/osteomyelitis with this irregular appearance of bone at the amputation site.. Clinical correlation required.
[2018-04-04 16:32] LABS: Basophils % 0.7 % (0.1-2.0); Eosinophils # 0.1 K/mm3 (0.0-0.4); Eosinophils % 2.4 % (0.1-12.0); Hematocrit 36.8 % (37.0-47.0); Hemoglobin 11.5 g/dL (12.2-16.2); Lymphocytes # 1.3 K/mm3 (0.7-4.5); Lymphocytes % 30.9 % (10-50); Mean Corpuscular HGB Conc 31.2 g/dL (31.8-35.4); Mean Corpuscular Hemoglobin 28.3 pg (27.0-31.2); Mean Corpuscular Volume 90.5 fl (81-99); Mean Platelet Volume 7.8 fl (7.4-10.4); Monocytes # 0.2 K/mm3 (0.1-1.0); Monocytes % 5.6 % (1.7-9.3); Neutrophils # 2.6 K/mm3 (1.8-7.8); Neutrophils % 60.3 % (37.0-80.0); Platelet Count 200 K/mm3 (142-424); Red Blood Count 4.06 M/mm3 (4.20-5.40); Red Cell Distribution Width 16.8 % (11.5-17.5); White Blood Count 4.3 K/mm3 (4.8-10.8)
[2018-04-04 18:43] LABS: Erythrocyte Sedimentation Rate 20 mm/hr (0-30)
[2018-04-04 23:27] LABS: Hemoglobin A1C 6.6 % (0.0-7.0)
[2018-04-04 23:46] LABS: Anion Gap 13.2 mEq/L (5-15); Blood Urea Nitrogen 24 mg/dL (7-18); C-Reactive Protein 1.1 mg/L (0.0-0.9); Calcium 8.8 mg/dL (8.5-10.1); Carbon Dioxide 29 mmol/L (21.0-32.0); Chloride 104 mmol/L (98-107); Creatinine,Serum 1.42 mg/dL (0.55-1.02); Estimated Glomerular Filt Rate 39 ml/min (>60); GFR (African American) 47 ML/MIN (>60); Glucose 166 mg/dL (74-106); Potassium 5.2 mmoL/L (3.5-5.1); Sodium 141 mmol/L (136-145)
== END ==
PROVIDERS: PCP Family Medicine; Referring Provider Orthopaedic Surgery; Visit Provider Podiatrist
DX: Z01.818 Encounter for other preprocedural examination (principal); M25.511 Pain in right shoulder; M79.673 Pain in unspecified foot
CPT/HCPCS: 36415; 73030; 73630; 80048; 83036; 85025; 85651; 86140

== ENCOUNTER → 2018-04-13 12:45 | Outpatient (CLI) | payer BC, SELFPAY ==
[2018-04-13 13:56] LABS: Blood Urea Nitrogen 23 mg/dL (7-18); Creatinine,Serum 1.59 mg/dL (0.55-1.02); Estimated Glomerular Filt Rate 34 ml/min (>60); GFR (African American) 41 ML/MIN (>60)
== END ==
PROVIDERS: Visit Provider Podiatrist
DX: M84.375A Stress fracture, left foot, initial encounter for fracture (principal); R60.0 Localized edema
CPT/HCPCS: 36415; 82565; 84520

== ENCOUNTER → 2018-04-20 14:46 | Outpatient (CLI) | payer BC, SELFPAY ==
--- NOTE | 2018-04-20 14:48 | MR_ITS ---
MR foot LT wo/w con Ordering Physician: Zulema Hightower DPM Patient Age: 52 years: Female HISTORY: ITS.REASON: left foot painankylosing with more likely TECHNIQUE: Multiplanar multisequence imaging 1.5 Reena MR . Postcontrast imaging: ProHance 19 mL IV utilized for the postcontrast studies with coronal and axial imaging performed COMPARISON : Plain films of right foot dated 12/08/2017 and 04/04/2018. FINDINGS Patient underwent amputation of distal first metatarsalJuly 2018., Head is been resected with osteotomy transversing the distal shaft/towards neck region first MTP . The left foot radiograph from 11/28/2017, 12/08/2017 and 01/23/2018 showed a well-defined smooth transverse osteotomy at the distal first metatarsal. However the 04/04/2018 plain films showed a change with irregular serrated appearance osteotomy site, with some fragmented appearing small bony fragment/material overlying this area distal to the first metatarsal stump and left formation. There is also some additional healing bony proliferation along the lateral aspect of the distal stump & extending slight proximal Today's MR shows prominent soft tissue edema & inflammatory changes about ostomy site first metatarsal. There is irregular appearance of bone at the transverse osteotomy site along, with increased bone signal here, & knee small focal osseous defect/ area of cortical discontinuity, with focal enhancement at the osteotomy-most evident towards its plantar aspect... These findings compatible with with developingosteomyelitis, at the distal stump.. Intense enhancing inflammation about this area is compatible. There are some tiny focal low signal areas adjacent to the osteotomy which could reflect some small bone fragments.- These are slightly more dorsal. We again note dorsal displacement of these proximal phalanx toe relative to the remaining first MTP stump... This noted on previous plain films. On sagittal view the inflammation within soft tissues is noted to be most pronounced just beneath the plantar aspect this first metatarsal osteotomy, and inferior to this developing first MTP articulation. There is also generous cellulitis throughout the midfoot surrounding the second and third metatarsals thin rim of fluid is seen overlying the mid foot --- Moving slight more proximal at the foot: Also note nonspecific increased signal at base of second metatarsal, & slight increased signal proximal base third metatarsal.... Mild Enhancement both of these areas. There is mild increased signal at the intermediate and lateral cuneiform but there but with minimal enhancement here, as well.. Nonspecific activity enhancement here could reflect some developing reactive arthritic changes about the tarsal-metatarsal joints in this diabetic patient. Unlikely infection related. mild increased signal at the intermediate cuneiform and lateral cuneiforms most evident on axial views. ,. Hindfoot unremarkable.. Peroneus tendons intact. Posterior tibial and intact. Subtalar joint unremarkable Second third, fourth, fifth toe, unremarkable.. IMPRESSION 1. Findings compatible with developing osteomyelitis at osteotomy site, distal first metatarsal . Intense enhancing inflammation most pronounced surrounding this osteotomy site, along with associated osseous irregularity & fragmentation; and small osseous defect with enhancement at the osteotomy itself. . These Features all reflect the developing osteomyelitis here 2.. Generous cellulitis seen throughout the midfoot most evident along the plantar aspect forefoot as well as between the second and third and fourth metatarsal. 3. Increased bone signal at proximal second and third metatarsal base with mild enhancement. Also Mild increased signal likely at the intermediate and lateral cuneiform. [place]
== END ==
PROVIDERS: PCP Family Medicine; Visit Provider Podiatrist
DX: M84.375A Stress fracture, left foot, initial encounter for fracture (principal); M79.673 Pain in unspecified foot; R60.0 Localized edema
CPT/HCPCS: 73720; A9576

== ENCOUNTER → 2018-04-23 11:59 | Outpatient (CLI) | payer BC, SELFPAY ==
[2018-04-23 12:36] LABS: INR 1.02 (0.9-1.1); Prothrombin Time 10.5 seconds (9.4-11.8)
[2018-04-23 12:38] LABS: Basophils % 0.8 % (0.1-2.0); Eosinophils # 0.1 K/mm3 (0.0-0.4); Eosinophils % 2.1 % (0.1-12.0); Hemoglobin 11.4 g/dL (12.2-16.2); Lymphocytes # 1.2 K/mm3 (0.7-4.5); Lymphocytes % 31.3 % (10-50); Mean Corpuscular HGB Conc 31.8 g/dL (31.8-35.4); Mean Corpuscular Hemoglobin 28.7 pg (27.0-31.2); Mean Corpuscular Volume 90.4 fl (81-99); Monocytes # 0.2 K/mm3 (0.1-1.0); Monocytes % 5.5 % (1.7-9.3); Neutrophils # 2.4 K/mm3 (1.8-7.8); Neutrophils % 60.3 % (37.0-80.0); Platelet Count 202 K/mm3 (142-424); Red Blood Count 3.98 M/mm3 (4.20-5.40); Red Cell Distribution Width 16.8 % (11.5-17.5); White Blood Count 3.9 K/mm3 (4.8-10.8)
[2018-04-23 13:15] LABS: Blood Urea Nitrogen 25 mg/dL (7-18); C-Reactive Protein 1.3 mg/L (0.0-0.9); Calcium 8.8 mg/dL (8.5-10.1); Carbon Dioxide 27 mmol/L (21.0-32.0); Chloride 103 mmol/L (98-107); Creatinine,Serum 1.61 mg/dL (0.55-1.02); Estimated Glomerular Filt Rate 33 ml/min (>60); GFR (African American) 41 ML/MIN (>60); Glucose 147 mg/dL (74-106); Sodium 140 mmol/L (136-145)
[2018-04-23 14:19] LABS: Erythrocyte Sedimentation Rate 31 mm/hr (0-30)
== END ==
PROVIDERS: Visit Provider Podiatrist
DX: Z98.890 Other specified postprocedural states (principal)
CPT/HCPCS: 36415; 80048; 85025; 85610; 85651; 86140

== ENCOUNTER → 2018-05-10 16:55 | Outpatient (CLI) | payer BC, SELFPAY | PROVIDERS: Visit Provider Podiatrist | DX: Z98.890 Other specified postprocedural states (principal) | CPT/HCPCS: 87070; 87077; 87186; 87205 ==

== ENCOUNTER → 2018-05-24 17:30 | Outpatient (CLI) | payer BC, SELFPAY | PROVIDERS: Visit Provider Podiatrist | DX: T81.49XA Infection following a procedure, other surgical site, initial encounter (principal) | CPT/HCPCS: 87070; 87077; 87186; 87205 ==

== ENCOUNTER → 2018-05-30 13:50 | Outpatient (CLI) | payer BC, SELFPAY ==
--- NOTE | 2018-05-30 13:54 | XR_ITS ---
XR foot wt bearing LT 3V HISTORY: Follow-up surgery ITS.REASON: Post-op views ORDERING PHYSICIAN: Zulema Hightower DPM PATIENT AGE: 52 years COMPARISON: 04/04/2018 FINDINGS: Status post amputation at the distal aspect of the first metatarsal as before. The proximal distal phalanx of the great toe remains. There is some faint soft tissue calcification at the stump of the first metatarsal. The irregularity of the osteotomy site is less apparent. There is soft tissue calcification is some increase in the previous exam. There is mild flattening and increased density of the head of the third metatarsal which may be due to developing a vascular necrosis. IMPRESSION: 1. Status post amputation at the distal aspect of the first metatarsal. The bony margin at the amputation site appears better corticated on today's exam suggesting improvement in osteomyelitis. There is some increase in soft tissue calcification which is nonspecific. 2. Flattening and sclerosis of the head of the third metatarsal consistent with avascular necrosis
[2018-05-30 17:03] LABS: Basophils % 0.9 % (0.1-2.0); Eosinophils # 0.1 K/mm3 (0.0-0.4); Eosinophils % 2.5 % (0.1-12.0); Hematocrit 37.3 % (37.0-47.0); Hemoglobin 11.7 g/dL (12.2-16.2); Lymphocytes # 1.5 K/mm3 (0.7-4.5); Lymphocytes % 32.5 % (10-50); Mean Corpuscular HGB Conc 31.3 g/dL (31.8-35.4); Mean Corpuscular Hemoglobin 29.3 pg (27.0-31.2); Mean Corpuscular Volume 93.7 fl (81-99); Mean Platelet Volume 7.1 fl (7.4-10.4); Monocytes # 0.3 K/mm3 (0.1-1.0); Monocytes % 5.6 % (1.7-9.3); Neutrophils # 2.7 K/mm3 (1.8-7.8); Neutrophils % 58.6 % (37.0-80.0); Platelet Count 245 K/mm3 (142-424); Red Blood Count 3.98 M/mm3 (4.20-5.40); Red Cell Distribution Width 15.5 % (11.5-17.5); White Blood Count 4.5 K/mm3 (4.8-10.8)
[2018-05-30 18:10] LABS: C-Reactive Protein 0.9 mg/L (0.0-0.9)
[2018-05-30 19:22] LABS: Erythrocyte Sedimentation Rate 24 mm/hr (0-30)
== END ==
PROVIDERS: PCP Family Medicine; Visit Provider Podiatrist
DX: Z98.890 Other specified postprocedural states (principal); T81.49XA Infection following a procedure, other surgical site, initial encounter
CPT/HCPCS: 36415; 73630; 85025; 85651; 86140

== ENCOUNTER → 2018-05-30 16:36 | Outpatient (CLI) | payer BC, SELFPAY | PROVIDERS: Visit Provider Podiatrist | DX: Z98.890 Other specified postprocedural states (principal) | CPT/HCPCS: 36415; 85025; 85651; 86140 ==

== ENCOUNTER → 2018-08-01 16:23 | Outpatient (CLI) | payer BC, SELFPAY ==
--- NOTE | 2018-08-01 16:27 | XR_ITS ---
XR foot LT min 3V HISTORY: Persistent left foot pain following surgery ITS.REASON: LEFT FOOT PAIN ORDERING PHYSICIAN: ISABELLA Mancera PATIENT AGE: 52 years COMPARISON: 05/30/2018, 04/25/2018, 12/08/2017 FINDINGS: There has been osteotomy of the distal aspect of the first metatarsal. There is some lucency and haziness of the osteotomy site which has developed since the previous exam. Previously the osteotomy site of the first metatarsal with sharp. This does raise the question of osteomyelitis at the osteotomy site. There is some calcification which has developed along the lateral aspect of the first metatarsal distally. No other significant anomalies are evident. IMPRESSION: There is some cortical lucency with mild haziness at the osteotomy site of the first metatarsal raising the question of underlying osteomyelitis. MRI may confirm
== END ==
PROVIDERS: PCP Family Medicine; Visit Provider Physician Assistant
DX: M79.672 Pain in left foot (principal)
CPT/HCPCS: 73630

== ENCOUNTER → 2018-09-12 16:25 | Outpatient (CLI) | payer OTHER, SELFPAY ==
[2018-09-12 17:02] LABS: Basophils % 0.7 % (0.1-2.0); Eosinophils # 0.1 K/mm3 (0.0-0.4); Eosinophils % 2.3 % (0.1-12.0); Hematocrit 34.2 % (37.0-47.0); Hemoglobin 11.4 g/dL (12.2-16.2); Lymphocytes # 1.6 K/mm3 (0.7-4.5); Lymphocytes % 33.5 % (10-50); Mean Corpuscular HGB Conc 33.3 g/dL (31.8-35.4); Mean Corpuscular Hemoglobin 30.6 pg (27.0-31.2); Mean Corpuscular Volume 91.7 fl (81-99); Monocytes # 0.3 K/mm3 (0.1-1.0); Monocytes % 5.7 % (1.7-9.3); Neutrophils # 2.8 K/mm3 (1.8-7.8); Neutrophils % 57.8 % (37.0-80.0); Platelet Count 174 K/mm3 (142-424); Red Blood Count 3.73 M/mm3 (4.20-5.40); Red Cell Distribution Width 15.1 % (11.5-17.5); White Blood Count 4.8 K/mm3 (4.8-10.8)
[2018-09-12 18:43] LABS: Alanine Aminotransferase 63 U/L (12-78); Albumin Level 3.6 gm/dL (3.4-5.0); Alkaline Phosphatase 81 U/L (46-116); Anion Gap 14.2 mEq/L (5-15); Aspartate Amino Transferase 59 U/L (15-37); Bilirubin,Total 0.2 mg/dL (0.2-1.0); Blood Urea Nitrogen 25 mg/dL (7-18); Carbon Dioxide 26 mmol/L (21.0-32.0); Chloride 104 mmol/L (98-107); Chol/HDL Ratio 8.9 (1-3.5); Cholesterol 319 mg/dL (140-200); Creatinine,Serum 1.55 mg/dL (0.55-1.02); Estimated Glomerular Filt Rate 35 ml/min (>60); GFR (African American) 42 ML/MIN (>60); Globulin 3.5 gm/dl (1.3-3.2); Glucose 145 mg/dL (74-106); HDL Cholesterol 36 mg/dL (29-89); Potassium 4.2 mmoL/L (3.5-5.1); Sodium 140 mmol/L (136-145); Thyroid Stimulating Hormone 3.17 uIU/ml (0.358-3.740); Total Protein,Serum 7.1 gm/dL (6.4-8.2)
[2018-09-12 18:46] LABS: Triglycerides 626 mg/dL (30-200)
== END ==
PROVIDERS: Visit Provider Psychiatry & Neurology Psychiatry
DX: F32.9 Major depressive disorder, single episode, unspecified (principal)
CPT/HCPCS: 36415; 80053; 80061; 83036; 84443; 85025

== ENCOUNTER → 2018-10-29 15:29 | Outpatient (POV) | payer OTHER, SELFPAY ==
[2018-10-29 15:38] VITALS: BP 139/66; PULSE 92; RESP 18; O2SAT 98
--- NOTE | 2018-10-30 08:28 | HMH.PMCON ---
Assessment and Plan (1) CRPS (complex regional pain syndrome type I) Current visit: Yes Status: Chronic Qualifiers: Complex regional pain syndrome affected site: lower extremity Laterality: left Qualified Code(s): G90.522 - Complex regional pain syndrome I of left lower limb Category: Medical Code(s): G90.50 - Complex regional pain syndrome I, unspecified (2) DM (diabetes mellitus) Current visit: No Status: Chronic Qualifiers: Diabetes mellitus type: type 2 Diabetes mellitus senior mainframe developer insulin use: without chcf use Diabetes mellitus complication status: with circulatory complication Diabetes mellitus complication detail: with other circulatory complications Qualified Code(s): E11.59 - Type 2 diabetes mellitus with other circulatory complications Category: Medical Code(s): E11.9 - Type 2 diabetes mellitus without complications - Assessment and plan all Dx Assessment and Plan for all problems:: We will start the patient back on Lyrica 75 mg p.o. twice daily. Also gave her information regarding the assistance program. We did discuss the neurostimulator. The patient is in agreement. We will send her for psychological evaluation to determine if she is a good candidate. Patient is on anticoagulation therapy. We will get permission from her physician prior to the trial come off of her medication. Patient is continuing to stay as active as possible and is continuing a home stretching program. She is also on anti-inflammatories. See her after her psychological evaluation. Instructed to call the office if she has any concerns prior to her next visit. Dr. Schneider has reviewed this note and agrees with this plan of care. This note was dictated using voice recognition software and may contain errors or omissions HPI - Data of Consult Patient: new to practice Consult date: 10/29/18 Requesting Physician: Peggy Mane APRN Primary Care Provider: Prabhakar Ocasio MD - Consult Narrative Reason for consult: Left foot pain status post surgery History of present illness: Ms. Cardona is a 53 year old female who presents today for points of left foot pain status post surgery. She is referred by Dr. Hightower. Patient reports that she began to have intermittent pain with long periods of walking, that progressively got worse in her left foot. Patient is diabetic and developed a foot ulcer for which she the has had difficulty healing. As a result, patient had a mid first metatarsal amputation. Following the amputation, she did develop infection at the site and had to have antibiotic beads placed. The infection has since resolved. She also developed color changes and swelling to the affected area. She now has chronic ulcerations with no signs of infection. Patient has tried multiple medications with no real success. Patient had Lyrica in the past with good relief, it was cost prohibitive. She has been on gabapentin for some time, has not had relief with it. Patient explains the pain as a burning, electrical type pain at times. The patient rates her pain a 6 out of 10 today and says that constant. CC: Peggy Mane APRN [facility] History I have reviewed the patient's past medical history: Yes Medical History: Reports:: Chronic Obstructive Pulmonary Disease (COPD), Depression, Diabetes Mellitus Type 2, Gall Bladder Disease, Gastroesophageal Reflux Disease(GERD), Hypertension, MRSA Denies:: Cancer, Diabetes Mellitus Type 1, Internal Pacemaker, Seizures *Have you ever received a pneumonia vaccine?: Yes *Have you received a flu vaccine this season?: Yes Other Medical History: Reports: Other. Denies: Blood Transfusion Reaction Laterality Cases: Bilateral: Other Other Surgeries: Yes: Cardiac Catheterization, Cholecystectomy, Mitral Valve Replacement, Other. No: Pacemaker Amputation: No Fractures: Yes (right foot screw) - *Social History Smoking Status: Never smoker Tobacco Type: cigarettes # Pac
--- NOTE | 2018-10-30 08:37 | P.CONS_ITS ---
Assessment and Plan (1) CRPS (complex regional pain syndrome type I) Current visit: Yes Status: Chronic Qualifiers: Complex regional pain syndrome affected site: lower extremity Laterality: left Qualified Code(s): G90.522 - Complex regional pain syndrome I of left lower limb Category: Medical Code(s): G90.50 - Complex regional pain syndrome I, unspecified (2) DM (diabetes mellitus) Current visit: No Status: Chronic Qualifiers: Diabetes mellitus type: type 2 Diabetes mellitus superintendent container terminal insulin use: without detention use Diabetes mellitus complication status: with circulatory complication Diabetes mellitus complication detail: with other circulatory complications Qualified Code(s): E11.59 - Type 2 diabetes mellitus with other circulatory complications Category: Medical Code(s): E11.9 - Type 2 diabetes mellitus without complications - Assessment and plan all Dx Assessment and Plan for all problems:: We will start the patient back on Lyrica 75 mg p.o. twice daily. Also gave her information regarding the assistance program. We did discuss the ne urostimulator. The patient is in agreement. We will send her for psychological evaluation to determine if she is a good candidate. Patient is on anticoagulation therapy. We will get permission from her physician prior to the trial come off of her medication. Patient is continuing to stay as active as possible and is continuing a home stretching program. She is also on anti- inflammatories. See her after her psychological evaluation. Instructed to call the office if she has any concerns prior to her next visit. Dr. Schneider has reviewed this note and agrees with this plan of care. This note was dictated using voice recognition software and may contain errors or omissions HPI - Data of Consult Patient: new to practice Consult date: 10/29/18 Requesting Physician: Peggy Mane APRN Primary Care Provider: Prabhakar Ocasio MD - Consult Narrative Reason for consult: Left foot pain status post surgery History of present illness: Ms. Cardona is a 53 year old female who presents today for points of left foot pain status post surgery. She is referred by Dr. Hightower. Patient reports that she began to have intermittent pain with long periods of walking, that progressively got worse in her left foot. Patient is diabetic and developed a foot ulcer for which she the has had difficulty healing. As a result, patient had a mid first metatarsal amputation. Following the amputation, she did develop infection at the site and had to have antibiotic beads placed. The infection has since resolved. She also developed color changes and swelling to the affected area. She now has chronic ulcerations with no signs of infection. Patient has tried multiple medications with no real success. Patient had Lyrica in the past with good relief, it was cost prohibitive. She has been on gabapentin for some time, has not had relief with it. Patient explains the pain as a burning, electrical type pain at times. The patient rates her pain a 6 out of 10 today and says that constant. CC: Peggy Mane APRN [facility] History I have reviewed the patient's past medical history: Yes Medical History: Reports:: Chronic Obstructive Pulmonary Disease (COPD), Depression, Diabetes Mellitus Type 2, Gall Bladder Disease, Gastroesophageal Reflux Disease(GERD), Hypertension, MRSA Denies:: Cancer, Diabetes Mellitus Type 1, Internal Pacemaker, Seizures *Have you ever received a pneumonia vaccine?: Yes *Have you received a flu vaccine this season?: Yes Other Medical History: Reports: Other. Denies: Blood Transfusi
--- NOTE | 2018-11-27 09:57 | PC.NURSE ---
APPROVAL FOR PATIENT TO DISCONTINUE COUMADIN 5 DAYS PRIOR TO STIMULATOR TRIAL OBTAINED FROM DR ARROYO.
== END ==
PROVIDERS: PCP Family Medicine; Visit Provider Clinical Nurse Specialist Family Health
DX: G90.522 Complex regional pain syndrome I of left lower limb (principal); E11.59 Type 2 diabetes mellitus with other circulatory complications
CPT/HCPCS: 99202

== ENCOUNTER → 2019-01-28 14:16 | Outpatient (POV) | payer OTHER, SELFPAY ==
[2019-01-28 15:06] VITALS: BP 126/71; PULSE 85; RESP 18; O2SAT 98; BMI 37.8
--- NOTE | 2019-01-29 16:24 | HMH.PAINSOAP ---
[facility] Pain Management SOAP Note Subjective:: Patient is a pleasant 53-year-old white female who presents today for follow-up. She has left foot pain after surgery. Patient has pain which is burning and electrical in nature. She is failed gabapentin and Lyrica. She is failed physical therapy. Patient has had an amputation in this area. She has developed color changes swelling to the affected area and chronic ulcerations she is failed over 6 months of therapy. She is not an candidate for injection therapy. Patient has classic CRPS of the left foot. She is a candidate for neurostimulator. She rates her pain a 9 out of 10 ROS General: no recent weight change, no fever, no sleep disturbances Respiratory: no cough, no shortness of air, no recurring pulmonary infections Cardiovascular/Peripheral Vascular: No chest pain, No palpitations, no edema, no shortness of breath. Gastrointestinal: no incontinence, normal bowel movements reported Genitourinary: no incontinence Musculoskeletal: Left foot pain, color changes left foot, swelling left foot, temperature changes left foot Psychiatric: normal mood/ affect Neurological: [denies weakness in extremities], [denies balance issues] Objective:: Physical Exam General: Alert and oriented x3, no acute distress, pleasant and cooperative, [on room air] Lungs: Resps E/U, Symmetrical chest expansion, Eyes: PERRL Musculoskeletal: Motion left foot somewhat guarded secondary to pain, deep tendon reflexes normal, strength in upper and lower extremities [5/5], [abnormal gait noted] noted color changes left foot noted swelling left foot noted temperature change left foot versus right foot Neurological: speech clear, agricultural 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 We will appeal the decision of her insurance in regards to this. If she does not get approved for this we will move on to intrathecal pain pump if necessary. We will set the patient up for trial. She is not on any anticoagulation therapy she has no active infections at this time. Dr. Schneider has reviewed this note and agrees with this plan of care. This note was dictated using voice recognition software and may contain errors or omissions Pain Management Hx Components *Have you ever received a pneumonia vaccine?: Yes *Have you received a flu vaccine this season?: Yes - *Social History *Occupational Status:: other *Travel in the last 8 weeks: None
--- NOTE | 2019-01-29 16:27 | P.CONS_ITS ---
[facility] Pain Management SOAP Note Subjective:: Patient is a pleasant 53-year-old white female who presents today for follow-up. She has left foot pain after surgery. Patient has pain which is burning and electrical in nature. She is failed gabapentin and Lyrica. She is failed physical therapy. Patient has had an amputation in this area. She has developed color changes swelling to the affected area and chronic ulcerations she is failed over 6 months of therapy. She is not an candidate for injection therapy. Patient has classic CRPS of the left foot. She is a candidate for neurostimulator. She rates her pain a 9 out of 10 ROS General: no recent weight change, no fever, no sleep disturbances Respiratory: no cough, no shortness of air, no recurring pulmonary infections Cardiovascular/Peripheral Vascular: No chest pain, No palpitations, no edema, no shortness of breath. Gastrointestinal: no incontinence, normal bowel movements reported Genitourinary: no incontinence Musculoskeletal: Left foot pain, color changes left foot, swelling left foot, temperature changes left foot Psychiatric: normal mood/ affect Neurological: [denies weakness in extremities], [denies balance issues] Objective:: Physical Exam General: Alert and oriented x3, no acute distress, pleasant and cooperative, [on room air] Lungs: Resps E/U, Symmetrical chest expansion, Eyes: PERRL Musculoskeletal: Motion left foot somewhat guarded secondary to pain, deep tendon reflexes normal, strength in upper and lower extremities [5/5], [abnormal gait noted] noted color changes left foot noted swelling left foot noted temperature change left foot versus right foot Neurological: speech clear, smoking tobacco packing machine hand equal, no gross sensory deficits Assessment:: Complex regional pain syndrome type I foot Plan:: Patient is a candidate for a neurostimulator. We will appeal the decision of her insurance in regards to this. If she does not get approved for this we will move on to intrathecal pain pump if necessary. We will set the patient up for trial. She is not on any anticoagulation therapy she has no active infections at this time. Dr. Schneider has reviewed this note and agrees with this plan of care. This note was dictated using voice recognition software and may contain errors or omissions Pain Management Hx Components *Have you ever received a pneumonia vaccine?: Yes *Have you received a flu vaccine this season?: Yes - *Social History *Occupational Status:: other *Travel in the last 8 weeks: None
== END ==
PROVIDERS: PCP Family Medicine; Visit Provider Clinical Nurse Specialist Family Health
DX: G90.522 Complex regional pain syndrome I of left lower limb (principal)
CPT/HCPCS: 99212

== ENCOUNTER → 2019-01-31 16:09 | Outpatient (CLI) | payer OTHER, SELFPAY ==
--- NOTE | 2019-01-31 16:22 | XR_ITS ---
PROCEDURE: XR FOOT WT BEARING LT 3V CLINICAL INDICATION: pain Status post right foot surgery with knot coming up on bottom of foot COMPARISON: [id number] XR foot wt bearing LT 3V from 05/30/2018 [id number] XR foot LT min 3V from 08/01/2018 FINDINGS: There has been a prior osteotomy at the distal aspect of the 1st metatarsal. The space between the osteotomy site and the proximal aspect of the proximal phalanx is approximately 8 mm as before. There has been interval lateral subluxation of the 2nd 3rd 4th and 5th metatarsals indicating disruption of the Lisfranc joint. Fragmentation is noted at the distal aspect of the 2nd and 3rd metatarsals. There is superior displacement of the metatarsals by approximately 1 cm. IMPRESSION: 1. No change status post osteotomy distal aspect of the 1st metatarsal 2. Lateral and superior displacement of the metatarsals with fragmentation of the distal aspect of the mid and lateral cuneiforms Dictated by: Saad Mendoza MD 01/31/2019 16:49 Electronically signed by Saad Mendoza MD in [place] 01/31/2019 16:49
--- NOTE | 2019-01-31 16:22 | XR_ITS ---
PROCEDURE: XR FOOT WT BEARING RT 3V CLINICAL INDICATION: pain COMPARISON: [id number] XR foot wt bearing RT 3V from 11/28/2017 FINDINGS: There has been prior ORIF of an ununited 5th metatarsal fracture. Longitudinal screw remains in place. No bony union evident. No significant change. The screw remains intact. There is an accessory ossicle along the distal and lateral aspect of the calcaneus. IMPRESSION: No change with no acute finding. Prior ORIF 5th metatarsal. Dictated by: Saad Mendoza MD 01/31/2019 17:21 Electronically signed by Saad Mendoza MD in [place] 01/31/2019 17:21
== END ==
PROVIDERS: PCP Family Medicine; Visit Provider Podiatrist
DX: M79.672 Pain in left foot (principal)
CPT/HCPCS: 73630

== ENCOUNTER → 2019-02-07 16:56 | Outpatient (CLI) | payer OTHER, SELFPAY ==
[2019-02-07 17:15] LABS: Basophils % 0.5 % (0.1-2.0); Eosinophils # 0.1 K/mm3 (0.0-0.4); Eosinophils % 1.8 % (0.1-12.0); Hemoglobin 12.7 g/dL (12.2-16.2); Lymphocytes # 1.9 K/mm3 (0.7-4.5); Lymphocytes % 27.6 % (10-50); Mean Corpuscular HGB Conc 31.9 g/dL (31.8-35.4); Mean Corpuscular Hemoglobin 30.8 pg (27.0-31.2); Mean Corpuscular Volume 96.8 fl (81-99); Mean Platelet Volume 7.2 fl (7.4-10.4); Monocytes # 0.4 K/mm3 (0.1-1.0); Monocytes % 5.8 % (1.7-9.3); Neutrophils # 4.3 K/mm3 (1.8-7.8); Neutrophils % 64.3 % (37.0-80.0); Platelet Count 238 K/mm3 (142-424); Red Blood Count 4.13 M/mm3 (4.20-5.40); Red Cell Distribution Width 13.8 % (11.5-17.5); White Blood Count 6.7 K/mm3 (4.8-10.8)
[2019-02-07 18:07] LABS: Alanine Aminotransferase 95 U/L (12-78); Albumin Level 3.8 gm/dL (3.4-5.0); Alkaline Phosphatase 125 U/L (46-116); Anion Gap 15.9 mEq/L (5-15); Aspartate Amino Transferase 93 U/L (15-37); Bilirubin,Total 0.3 mg/dL (0.2-1.0); Blood Urea Nitrogen 23 mg/dL (7-18); C-Reactive Protein 3.4 mg/dL (0.0-0.9); Calcium 8.8 mg/dL (8.5-10.1); Carbon Dioxide 26 mmol/L (21.0-32.0); Chloride 102 mmol/L (98-107); Creatinine,Serum 1.71 mg/dL (0.55-1.02); Estimated Glomerular Filt Rate 31 ml/min (>60); GFR (African American) 38 ML/MIN (>60); Globulin 3.7 gm/dl (1.3-3.2); Glucose 171 mg/dL (74-106); Potassium 4.9 mmoL/L (3.5-5.1); Sodium 139 mmol/L (136-145); Total Protein,Serum 7.5 gm/dL (6.4-8.2)
[2019-02-07 19:29] LABS: Hemoglobin A1C 7.1 % (0.0-7.0)
[2019-02-07 20:44] LABS: Erythrocyte Sedimentation Rate 21 mm/hr (0-30)
== END ==
PROVIDERS: Visit Provider Podiatrist
DX: M79.672 Pain in left foot (principal); E11.610 Type 2 diabetes mellitus with diabetic neuropathic arthropathy; E11.40 Type 2 diabetes mellitus with diabetic neuropathy, unspecified; Z79.84 Long term (current) use of oral hypoglycemic drugs
CPT/HCPCS: 36415; 80053; 83036; 85025; 85651; 86140

== ENCOUNTER → 2019-02-28 16:20 | Outpatient (CLI) | payer OTHER, SELFPAY ==
--- NOTE | 2019-02-28 16:29 | MR_ITS ---
PROCEDURE: MR FOOT LT WO CON CLINICAL INDICATION: charcot joint Foot pain, cellulitis, hallux valgus Charcot joint the COMPARISON: [id number] MR foot LT wo/w con from 04/20/2018 XR FOOT WT BEARING LT 3V from 01/31/2019 TECHNIQUE: Routine multiplanar multi echo sequences are performed without gadolinium enhancement. FINDINGS: There is diffuse disorganization, displacement, and degeneration and destructive changes of the midfoot including the cuneiforms and proximal aspect of the 2nd and 3rd metatarsals with Lisfranc deformity with widening of the 1st intermetatarsal space with metatarsus varus and pes planus. There are postsurgical changes at the distal aspect of the 1st metatarsal with osteotomy at the distal 1st metatarsal. Small amount of fluid is present at the osteotomy site. There is diffuse soft tissue swelling. Hammertoe deformity involves the 2nd 3rd 4th and 5th toes. No obvious abscess. 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 Dictated by: Saad Mendoza MD 03/04/2019 05:22 Electronically signed by Saad Mendoza MD in [place] 03/06/2019 06:43
== END ==
PROVIDERS: PCP Family Medicine; Visit Provider Podiatrist
DX: E11.610 Type 2 diabetes mellitus with diabetic neuropathic arthropathy (principal); M14.672 Charcot's joint, left ankle and foot
CPT/HCPCS: 73718

== ENCOUNTER → 2019-03-04 15:40 | Outpatient (POV) | payer OTHER, SELFPAY | PROVIDERS: PCP Family Medicine; Visit Provider Nurse Practitioner Family | DX: Z00.00 Encounter for general adult medical examination without abnormal findings (principal) ==

== ENCOUNTER → 2019-03-05 15:36 | Outpatient (CLI) | payer OTHER, SELFPAY ==
[2019-03-05 15:38] LABS: Adenovirus F 40/41, stool Not Detected (NotDetected); Astrovirus Not Detected (NotDetected); Campylobacter Not Detected (NotDetected); Clostridium Difficile A/B, PCR Not Detected (NotDetected); Cryptosporidium Not Detected (NotDetected); Cyclospora Cayetanesis Not Detected (NotDetected); Entamoeba histolytica Not Detected (NotDetected); Enteroaggregative E coli Not Detected (NotDetected); Enteropathogenic E coli Not Detected (NotDetected); Enterotoxigenic E coli Not Detected (NotDetected); Giardia lamblia Not Detected (NotDetected); Norovirus Not Detected (NotDetected); Plesimonas Shigalloides, PCR Not Detected (NotDetected); Rotavirus A Not Detected (NotDetected); Salmonella, PCR Not Detected (NotDetected); Sapovirus Not Detected (NotDetected); Shiga-like toxin E coli Not Detected (NotDetected); Shigella Enterovasive E coli Not Detected (NotDetected); Vibrio Cholerae Not Detected (NotDetected); Vibrio, PCR Not Detected (NotDetected); Yersinia Entercolitica, PCR Not Detected (NotDetected)
== END ==
PROVIDERS: Visit Provider Nurse Practitioner Family
DX: R14.0 Abdominal distension (gaseous) (principal); R19.4 Change in bowel habit; R10.13 Epigastric pain; K21.9 Gastro-esophageal reflux disease without esophagitis; R19.7 Diarrhea, unspecified; Z79.1 Long term (current) use of non-steroidal anti-inflammatories (NSAID)
CPT/HCPCS: 87507

== ENCOUNTER → 2019-03-28 15:36 | Outpatient (CLI) | payer OTHER, SELFPAY ==
--- NOTE | 2019-03-28 15:39 | XR_ITS ---
PROCEDURE: XR FOOT WT BEARING LT 3V CLINICAL INDICATION: postop the Charcot foot COMPARISON: [id number] XR foot wt bearing LT 3V from 05/30/2018 [id number] XR foot LT min 3V from 08/01/2018 XR FOOT WT BEARING LT 3V from 01/31/2019 XR FOOT WT BEARING RT 3V from 01/31/2019 FINDINGS: Status post osteotomy of the distal aspect of the 1st metatarsal with a gap between the distal 1st metatarsal stump and the proximal phalanx. There is lateral displacement of the 2nd 3rd and 4th metatarsals. There is 0 percent apposition of the 2nd metatarsal with the mid cuneiform with bony debris in disorganization at the tarsal metatarsal junction IMPRESSION: Overall no change in the postsurgical changes and neuropathic Dictated by: Saad Mendoza MD 03/28/2019 17:18 Electronically signed by Saad Mendoza MD in [place] 03/28/2019 17:18
== END ==
PROVIDERS: PCP Family Medicine; Visit Provider Podiatrist
DX: E11.610 Type 2 diabetes mellitus with diabetic neuropathic arthropathy (principal); M14.672 Charcot's joint, left ankle and foot; Z98.890 Other specified postprocedural states
CPT/HCPCS: 73630

== ENCOUNTER → 2019-04-09 15:31 | Outpatient (CLI) | payer OTHER, SELFPAY ==
--- NOTE | 2019-04-09 15:33 | XR_ITS ---
PROCEDURE: XR FOOT WT BEARING LT 3V CLINICAL INDICATION: post op surgery Follow-up surgery/Charcot joint COMPARISON: [id number] XR foot LT min 3V from 08/01/2018 XR FOOT WT BEARING LT 3V from 01/31/2019 XR FOOT WT BEARING RT 3V from 01/31/2019 MR FOOT LT WO CON from 02/28/2019 XR FOOT WT BEARING LT 3V from 03/28/2019 FINDINGS: Charcot joint noted at the metatarsal tarsal junction with lateral displacement of the 2nd 3rd 4th and 5th metatarsals and mild foreshortening of the 2nd and 3rd metatarsal at the metatarsal tarsal joint. Post osteotomy changes 1st metatarsal. There is pes planus. Dorsal displacement noted at the navicular cuneiform joint. The talonavicular, talocalcaneal, and calcaneocuboid joints appear intact. IMPRESSION: Overall no significant change compared to the previous exam in the postsurgical changes and Charcot joint at the metatarsal tarsal junction Dictated by: Saad Mendoza MD 04/09/2019 16:04 Electronically signed by Saad Mendoza MD in [place] 04/09/2019 16:04
== END ==
PROVIDERS: PCP Family Medicine; Visit Provider Podiatrist
DX: Z98.890 Other specified postprocedural states (principal); M79.672 Pain in left foot
CPT/HCPCS: 73630

== ENCOUNTER → 2019-05-13 15:32 | Outpatient (CLI) | payer OTHER, SELFPAY ==
--- NOTE | 2019-05-13 15:36 | XR_ITS ---
PROCEDURE: XR FOOT WT BEARING LT 3V CLINICAL INDICATION: charcots foot COMPARISON: XR FOOT WT BEARING LT 3V from 01/31/2019 XR FOOT WT BEARING RT 3V from 01/31/2019 XR FOOT WT BEARING LT 3V from 03/28/2019 XR FOOT WT BEARING LT 3V from 04/09/2019 FINDINGS: At the operative site at the level of the mid 1st metatarsal bone there is approximately 40 percent medial positioning of the proximal phalanx of the 1st digit compared to the remaining proximal aspect of the 1st metatarsal bone. The remainder of the exam of the left foot is stable. IMPRESSION: Change in position between the proximal 1st metatarsal bone and the proximal phalanx of the 1st digit compared to the prior study. This could be positional during exam. Dictated by: Elier Altamirano 05/13/2019 17:33 Electronically signed by Elier Altamirano in [place] 05/13/2019 17:33
--- NOTE | 2019-05-13 15:36 | XR_ITS ---
PROCEDURE: XR ANKLE WT BEARING LT MIN 3V CLINICAL INDICATION: charcots foot COMPARISON: No exams were available for comparison FINDINGS: Bone density, joint spaces and alignment are normal. There is no acute fracture. Soft tissues are unremarkable. IMPRESSION: No acute findings. Dictated by: Elier Altamirano 05/13/2019 17:34 Electronically signed by Elier Altamirano in [place] 05/13/2019 17:34
== END ==
PROVIDERS: PCP Family Medicine; Visit Provider Podiatrist
DX: E11.40 Type 2 diabetes mellitus with diabetic neuropathy, unspecified (principal); E11.610 Type 2 diabetes mellitus with diabetic neuropathic arthropathy
CPT/HCPCS: 73610; 73630

== ENCOUNTER → 2019-07-01 14:20 | Outpatient (POV) | payer OTHER, SELFPAY | PROVIDERS: Visit Provider Nurse Practitioner Family | DX: Z00.00 Encounter for general adult medical examination without abnormal findings (principal) ==

== ENCOUNTER → 2019-08-06 15:35 | Outpatient (CLI) | payer OTHER, SELFPAY ==
--- NOTE | 2019-08-06 15:40 | XR_ITS ---
PROCEDURE: XR FOOT WT BEARING LT 3V CLINICAL INDICATION: charcot Charcot foot, prior surgery COMPARISON: [id number] XR foot wt bearing LT 3V from 04/04/2018 XR FOOT WT BEARING RT 3V from 01/31/2019 XR FOOT WT BEARING LT 3V from 03/28/2019 XR FOOT WT BEARING LT 3V from 04/09/2019 XR FOOT WT BEARING LT 3V from 05/13/2019 FINDINGS: Status post amputation of the distal aspect of the 1st metatarsal with widening of the space between the base of the proximal phalanx of the great toe and the distal aspect of the 1st metatarsal similar to the previous exam. There is lateral displacement with osteoarthritic change of the base of the 2nd metatarsal displaced laterally by approximately 8 mm. There is also lateral displacement of the of the 3rd 4th and 5th metatarsals. There is dorsal displacement of the base of the 1st metatarsal by 7 mm with pes planus. Overall, the findings are not significantly changed. Hammertoe deformity involves all of the toes. IMPRESSION: Charcot joint involving the midfoot. There is widening of the space between the base of the 1st and 2nd metatarsal with lateral displacement of the base of the 2nd 3rd 4th and 5th metatarsals consistent with an a Lisfranc injury/Lisfranc ligamentous disruption with unstable midfoot overall not significantly changed. Prior amputation at the distal aspect of the 1st metatarsal Dictated by: Saad Mendoza MD 08/06/2019 17:12 Electronically signed by Saad Mendoza MD in [place] 08/06/2019 17:12
--- NOTE | 2019-08-06 15:40 | XR_ITS ---
PROCEDURE: XR FOOT WT BEARING RT 3V CLINICAL INDICATION: charcot pain, Charcot foot COMPARISON: XR FOOT WT BEARING RT 3V from 01/31/2019 XR FOOT WT BEARING LT 3V from 03/28/2019 XR FOOT WT BEARING LT 3V from 04/09/2019 XR FOOT WT BEARING LT 3V from 05/13/2019 FINDINGS: Prior ORIF of a 5th metatarsal fracture with longitudinal screw through the proximal aspect of the 5th metatarsal. Fracture line is still visible. There is good alignment. No acute fracture or dislocation or other significant anomalies evident. IMPRESSION: No change good alignment status post ORIF 5th metatarsal fracture with fracture line still visible Dictated by: Saad Mendoza MD 08/06/2019 17:20 Electronically signed by Saad Mendoza MD in [place] 08/06/2019 17:20
== END ==
PROVIDERS: PCP Family Medicine; Visit Provider Podiatrist
DX: M79.672 Pain in left foot (principal); M79.671 Pain in right foot
CPT/HCPCS: 73630

== ENCOUNTER → 2019-11-30 08:14 | Outpatient (CLI) | payer OTHER, SELFPAY ==
[2019-11-30 08:45] LABS: Basophils % 0.9 % (0.1-2.0); Eosinophils # 0.1 K/mm3 (0.0-0.4); Eosinophils % 3.3 % (0.1-12.0); Hematocrit 35.8 % (37.0-47.0); Hemoglobin 12.1 g/dL (12.2-16.2); Lymphocytes # 1.6 K/mm3 (0.7-4.5); Lymphocytes % 36.8 % (10-50); Mean Corpuscular HGB Conc 33.9 g/dL (31.8-35.4); Mean Corpuscular Hemoglobin 31.6 pg (27.0-31.2); Mean Corpuscular Volume 93.2 fl (81-99); Mean Platelet Volume 8.2 fl (7.4-10.4); Monocytes # 0.2 K/mm3 (0.1-1.0); Monocytes % 4.5 % (1.7-9.3); Neutrophils # 2.4 K/mm3 (1.8-7.8); Neutrophils % 54.5 % (37.0-80.0); Platelet Count 160 K/mm3 (142-424); Red Blood Count 3.84 M/mm3 (4.20-5.40); Red Cell Distribution Width 14.8 % (11.5-17.5); White Blood Count 4.4 K/mm3 (4.8-10.8)
[2019-11-30 09:46] LABS: Hemoglobin A1C 7.9 % (4.0-6.0)
[2019-11-30 10:09] LABS: Chloride 106 mmol/L (98-107); Potassium 4.8 mmoL/L (3.5-5.1); Sodium 141 mmol/L (136-145)
[2019-11-30 10:12] LABS: Alanine Aminotransferase 111 U/L (12-78); Albumin/Globulin Ratio 1.4 (1.1-1.8); Alkaline Phosphatase 106 U/L (38-126); Anion Gap 14.8 mEq/L (5-15); Aspartate Amino Transferase 134 U/L (14-36); Bilirubin,Total 0.4 mg/dl (0.2-1.3); Blood Urea Nitrogen 25 mg/dl (7-17); Calcium 9.4 mg/dl (8.4-10.2); Carbon Dioxide 25 mmol/L (22.0-30.0); Cholesterol 290 mg/dl (140-200); Estimated Glomerular Filt Rate 36 ml/min (>60); GFR (African American) 44 ML/MIN (>60); Globulin 2.8 g/dL (1.3-3.2); Glucose 193 mg/dl (74-100); Total Protein,Serum 6.8 g/dl (6.3-8.2)
[2019-11-30 10:13] LABS: Chol/HDL Ratio 7.1 (1-3.5); HDL Cholesterol 41 mg/dl (40-60)
[2019-11-30 10:23] LABS: Direct LDL Cholesterol 134.13 mg/dL (100-129)
[2019-11-30 10:29] LABS: T4 (Thyroxine) 9.9 ug/dl (5.53-11.0)
[2019-11-30 10:31] LABS: Triglycerides 642 mg/dl (30-150)
== END ==
PROVIDERS: Visit Provider Family Medicine
DX: I10 Essential (primary) hypertension (principal); E11.42 Type 2 diabetes mellitus with diabetic polyneuropathy; E03.9 Hypothyroidism, unspecified
CPT/HCPCS: 36415; 80053; 80061; 83036; 84436; 84443; 85025

== ENCOUNTER → 2020-01-29 15:40 | Outpatient (CLI) | payer OTHER, SELFPAY ==
--- NOTE | 2020-01-29 15:51 | XR_ITS ---
PROCEDURE: XR FOOT WT BEARING LT 3V CLINICAL INDICATION: Diabetic Charcot Pain COMPARISON: CR XR FOOT WT BEARING LT 3V from 04/09/2019 CR XR FOOT WT BEARING LT 3V from 05/13/2019 CR XR FOOT WT BEARING LT 3V from 08/06/2019 CR XR FOOT WT BEARING RT 3V from 08/06/2019 FINDINGS: There has been prior amputation of the distal aspect of the 1st metatarsal. Charcot joint is present at the tarsal metatarsal junction. There is widening the 1st intermetatarsal space with lateral subluxation of the 2nd 3rd 4th and 5th metatarsals and bony fragmentation of the cuneiforms with pes planus. Overall no significant change compared to the previous exam. IMPRESSION: Charcot joint of the midfoot with midfoot deformity and widening of the Lisfranc joint with pes planus overall not significantly changed Dictated by: Saad Mendoza MD 01/29/2020 17:34 Saad Mendoza MD in [place] 01/29/2020 17:34
== END ==
PROVIDERS: PCP Family Medicine; Visit Provider Podiatrist
DX: E11.610 Type 2 diabetes mellitus with diabetic neuropathic arthropathy (principal)
CPT/HCPCS: 73630

== ENCOUNTER → 2020-02-20 15:32 | Outpatient (CLI) | payer OTHER, SELFPAY ==
--- NOTE | 2020-02-20 15:38 | MM_ITS ---
PROCEDURE: MM DIG SCREENING MAMM BI W/CAD Digital Breast Tomosynthesis Included CLINICAL INDICATION: SCREENING There is no personal or family history of breast cancer. COMPARISON: MG DIGMAMMS MAMMOGRAM SCREEN-CHIEF ENGINEER RESEARCH N/C from 03/12/2009 MG DMSB DIGITAL MAMM-SCREEN BILATERAL from 06/10/2010 MG DMSB DIGITAL MAMM-SCREEN BILATERAL from 08/04/2011 TECHNIQUE: Standard CC and MLO images and 3D Tomosynthesis was obtained. R2 CAD reviewed. FINDINGS: Composed primarily of fat with minimal scattered fibroglandular densities in each breast. Again noted is an asymmetric density outer quadrant right breast which has been stable since the previous mammograms in 2011, 2010 and 2008. there are small benign-appearing nodular density just deep to the nipple left breast 1 of which is partially calcified. There is no suspicious lesion and no suspicious microcalcifications. IMPRESSION: Fatty type breast parenchyma with no suspicious lesions seen BI-RAD Category: 2 Benign Finding(s) FOLLOW-UP: 1YR 1 Year Follow-up (A letter has been sent to the patient regarding results of the study.) Dictated by: Dr. Golden Arevalo MD 02/25/2020 17:27 Dr. Golden Arevalo MD in [place] 02/25/2020 17:27
== END ==
PROVIDERS: PCP Family Medicine; Visit Provider Family Medicine
DX: Z12.31 Encounter for screening mammogram for malignant neoplasm of breast (principal)
CPT/HCPCS: 77063; 77067

== ENCOUNTER 2020-03-20 17:30 | Emergency (ER) | payer OTHER, SELFPAY ==
[2020-03-20] VITALS (10 sets, daily range): BP systolic 103–146; BP diastolic 50–99; PULSE 83–93; RESP 16–18; TEMP 36.6; O2SAT 97–100; BMI 36.0
--- NOTE | 2020-03-20 17:47 | XR_ITS ---
PROCEDURE: XR CHEST PORTABLE CLINICAL HISTORY: WEAKNESS COMPARISON: CR CXR2V XR chest 2V from 12/05/[address] ABDOMEN PELVIS WO CON from 03/20/2020 FINDINGS: There has been a prior median sternotomy with by valvular replacement. There is mild cardiomegaly without failure. There is evidence of old granulomatous disease. No lobar consolidation or collapse. IMPRESSION: Postsurgical change with old granulomatous disease and cardiomegaly. Dictated by: Saad Mendoza MD 03/21/2020 08:38 Saad Mendoza MD in [place] 03/21/2020 08:38
--- NOTE | 2020-03-20 17:54 | ECG_ITS ---
APPROVED REPORT Exam: Resting ECG HR:83 bpm ECG Measurements Heart Rate 83 AXES QRSd 120 QRS 102 QT 408 T 69 QTc 479 Conclusion Wide QRS rhythm-suspect junctional rhythm Possible Right ventricular hypertrophy Nonspecific ST abnormality Abnormal ECG Electronically signed by : David Chaney, 03/23/2020 16:20:44
[2020-03-20 18:07] LABS: Microscopic, Urine URINE MICROSCOPIC (MICROSCOPIC)
[2020-03-20 18:10] LABS: Appearance,Urine CLOUDY (Clear); Basophils % 0.4 % (0.1-2.0); Bilirubin,Urine Negative (Negative); Blood, Urine 1+ (Negative); Color,Urine YELLOW (Yellow); Eosinophils % 0.5 % (0.1-12.0); Glucose,Urine (UA) Negative (Negative); Hematocrit 29.5 % (37.0-47.0); Hemoglobin 9.5 g/dL (12.2-16.2); Ketones,Urine Negative (Negative); Leukocyte Esterase,Urine Negative (Negative); Lymphocytes # 2.2 K/mm3 (0.7-4.5); Lymphocytes % 25.2 % (10-50); Mean Corpuscular HGB Conc 32.4 g/dL (31.8-35.4); Mean Corpuscular Hemoglobin 30.4 pg (27.0-31.2); Mean Corpuscular Volume 94.1 fl (81-99); Mean Platelet Volume 8.5 fl (7.4-10.4); Monocytes # 0.3 K/mm3 (0.1-1.0); Monocytes % 3.9 % (1.7-9.3); Neutrophils % 70.1 % (37.0-80.0); Nitrate,Urine Negative (Negative); PH,Urine 5.5 (5.0-8.5); Platelet Count 227 K/mm3 (142-424); Protein,Urine 1+ (Negative); Red Blood Count 3.13 M/mm3 (4.20-5.40); Red Cell Distribution Width 15.6 % (11.5-17.5); Specific Gravity, Urine 1.025 (1.005-1.030); Urobilinogen,Urine 0.2 EU/dl (0.2); White Blood Count 8.6 K/mm3 (4.8-10.8)
--- NOTE | 2020-03-20 18:10 | HMH.EDGENADL ---
ED Disposition Clinical Impression: Acute kidney injury, Hyperkalemia, Metabolic acidosis GI bleed Qualifiers: GI bleed type/associated pathology: melena Qualified Code(s): K92.1 - Melena Disposition: Xfer Other Condition on Discharge: Serious Referrals: Prabhakar Ocasio MD [Primary Care Provider] - - Critical Care Critical Care Time: Yes (30min) Attestation: On 03/20/20, the high probability of a clinically significant, sudden or life threatening deterioration of the following system(s) required my full and direct attention, intervention and personal management. The time I documented below is in addition to time spent performing reported procedures but includes the following listed in this critical care notation. Total Critical Care Time: 30 Vital system(s) involved:: Metabolic Failure My critical care processes included: Assessment & monitoring of V/S, Initial and Re-exams, Data Review/Interpretation, Coordinating Care, Medication Orders and management Medical Decision Making - Medical Records Medical records reviewed: Yes: I reviewed the patient's medical records. - Gianfranco Inquiry Pt receiving controlled substance: No Vital Signs: 03/20/20 17:43 03/20/20 18:22 03/20/20 18:33 Temperature 97.9 F Temperature Source Oral Pulse Rate [Right Radial] 85 93 H 83 Respiratory Rate 17 16 Blood Pressure [Right Arm] 103/50 L 105/55 L 116/57 L Blood Pressure Mean [Right Arm] 67 71 76 Blood Pressure Source [Right Arm] Automatic Cuff Blood Pressure Position [Right Arm] Sitting 02 Sat by Pulse Oximetry 100 99 Oxygen Delivery Method Room Air Room Air 03/20/20 19:04 03/20/20 19:34 03/20/20 20:11 Temperature Temperature Source Pulse Rate [Right Radial] 86 83 87 Respiratory Rate 16 18 18 Blood Pressure [Right Arm] 114/73 131/69 120/61 Blood Pressure Mean [Right Arm] 86 89 80 Blood Pressure Source [Right Arm] Automatic Cuff Blood Pressure Position [Right Arm] 02 Sat by Pulse Oximetry 97 99 100 Oxygen Delivery Method - Lab Data Lab results reviewed: Yes: I reviewed the patient's lab results. Lab Results 03/20/20 17:49: VBG pH 7.06 L, VBG pCO2 32.8 L, VBG pO2 100.7 H, VBG HCO3 9.0 L, VBG Total CO2 10.0 L, VBG O2 Saturation 95.6 H, VBG Base Excess -21.3 L 03/20/20 18:00: Urine Color Yellow, Urine Appearance Cloudy, Urine pH 5.5, Ur Specific Fate 1.025, Urine Protein 1+, Urine Glucose (UA) Negative, Urine Ketones Negative, Urine Blood 1+, Urine Nitrate Negative, Urine Bilirubin Negative, Urine Urobilinogen 0.2, Ur Leukocyte Esterase Negative, Urine RBC 5-10, Urine WBC 10-20, Ur Squamous Epith Cells 10-20, Urine Bacteria 3+, Hyaline Casts 3-5 03/20/20 18:00: Urine HCG, Qual Negative 03/20/20 18:00: Sodium 129 L, Potassium 6.1 H*, Chloride 93 L, Carbon Dioxide 9 L*, Anion Gap 33.1 H, BUN 107 H*, Creatinine 11.70 H, Estimated Creat Clear 8, Estimated GFR 3 L*, Est GFR ( Amer) 4 L*, Glucose 111 H, Calcium 8.7, Total Bilirubin 0.4, AST 76 H, ALT 59, Alkaline Phosphatase 59, Troponin I < 0.01, Total Protein 7.1, Albumin 4.2, Globulin 2.9, Albumin/Globulin Ratio 1.4, Lipase 205 03/20/20 18:00: Lactate 4.3 H 03/20/20 18:00: SARS-CoV-2 IgG Ab (Rapid) Negative, SARS-CoV-2 IgM Ab (Rapid) Negative 03/20/20 18:00: WBC 8.6, RBC 3.13 L, Hgb 9.5 L, Hct 29.5 L, MCV 94.1, MCH 30.4, MCHC 32.4, RDW 15.6, Plt Count 227, MPV 8.5, Neut % (Auto) 70.1, Lymph % (Auto) 25.2, [place] % (Auto) 3.9, Eos % (Auto) 0.5, Baso % (Auto) 0.4, Neut # (Auto) 6.0, Lymph # (Auto) 2.2, [place] # (Auto) 0.3, Eos # (Auto) 0.0, Baso # (Auto) 0.0 03/20/20 18:00: Stool Occult Blood Positive A 03/20/20 18:00: PT 54.4 H, INR 5.75 H, APTT 61.4 H* D 03/20/20 18:19: Blood Type O Negative, Antibody Screen Negative Result diagrams: 03/20/20 18:00 03/20/20 18:00 Orders (Tests/Meds): ED MEDICATIONS Generic Name Dose Route Start Last Admin Trade Name Freq PRN Reason Stop Dose Admin Sodium Chloride 1,000 mls @ 999 mls/hr 03/20/20 18:0
[2020-03-20 18:14] LABS: Urine Pregnancy, HCG Qual. Negative (Negative)
[2020-03-20 18:14] LABS: VBG Base Excess -21.3 mmol/L (-2.4-2.3); VBG Oxygen Saturation 95.6 % (50-70); VBG PCO2 32.8 mmol/L (35-51); VBG PO2 100.7 mmol/L (28-40)
[2020-03-20 18:15] LABS: Occult Blood,Stool Positive (Negative)
[2020-03-20 18:16] LABS: Chloride 93 mmol/L (98-107); Sodium 129 mmol/L (136-145)
[2020-03-20 18:17] LABS: VBG PH 7.06 mmol/L (7.31-7.41)
[2020-03-20 18:19] LABS: Alanine Aminotransferase 59 U/L (12-78); Albumin Level 4.2 g/dl (3.5-5.0); Albumin/Globulin Ratio 1.4 (1.1-1.8); Alkaline Phosphatase 59 U/L (38-126); Anion Gap 33.1 mEq/L (5-15); Aspartate Amino Transferase 76 U/L (14-36); Bilirubin,Total 0.4 mg/dl (0.2-1.3); Calcium 8.7 mg/dl (8.4-10.2); Globulin 2.9 g/dL (1.3-3.2); Glucose 111 mg/dl (74-100); Lipase 205 U/L (23-300); Total Protein,Serum 7.1 g/dl (6.3-8.2)
--- NOTE | 2020-03-20 18:20 | PC.NURSE ---
DR CORONA AWARE OF VBG FINDINGS.
[2020-03-20 18:21] LABS: Lactic Acid 4.3 mmol/L (0.7-2.1)
--- NOTE | 2020-03-20 18:21 | PC.NURSE ---
DR CORONA AWARE OF CRITICAL LACTIC. HE DOES NOT WANT TO INITIATE SEPSIS BOLUS. DR CORONA STATES THE LACTIC IS HIGH BECAUSE SHE IS BLEEDING. AWAITING FURTHER ORDERS.
[2020-03-20 18:23] LABS: Blood Urea Nitrogen 107 mg/dl (7-17); Carbon Dioxide 9 mmol/L (22.0-30.0); Potassium 6.1 mmoL/L (3.5-5.1)
[2020-03-20 18:29] LABS: Activated Partial Thrombo Time 61.4 seconds (23.6-34.0); Bacteria,Urine 3+ /lpf
[2020-03-20 18:30] LABS: INR 5.75 (0.9-1.1); Prothrombin Time 54.4 seconds (9.4-11.8)
--- NOTE | 2020-03-20 18:32 | PC.NURSE ---
PATIENT MOVED TO ROOM 1 FOR CLOSE CARDIAC MONITORING. PATIENT AND UPDATED ON PLAN OF CARE. BOTH DENY NEEDS OR QUESTIONS.
--- NOTE | 2020-03-20 18:41 | PC.NURSE ---
Dr Carlton on with Dr Marin at
[2020-03-20 18:42] LABS: Coronavirus 19 IgG Antibody Negative (Negative); Coronavirus 19 IgM Antibody Negative (Negative)
--- NOTE | 2020-03-20 18:42 | PC.NURSE ---
RHINA CONSULTS WITH ED PHYSICIAN AT ER. ON [facility]. REFUSE ACCEPTANCE. CONTACTING [facility] AT THIS TIME FOR POSSIBLE TRANSFER.
--- NOTE | 2020-03-20 18:52 | PC.NURSE ---
Dr Carlton Speaking with Dr Schmidt at [facility].
[2020-03-20 19:00] LABS: Creatinine Clearance Estimated 8 mL/min (50-200); Estimated Glomerular Filt Rate 3 ml/min (>60); GFR (African American) 4 ML/MIN (>60)
--- NOTE | 2020-03-20 19:02 | PC.NURSE ---
called no beds available, [facility], none available, [facility], pt placed on waiting list for ICU bed. speaking with Nephrology at [facility] at this time.
--- NOTE | 2020-03-20 19:03 | PC.NURSE ---
Addendum entered by Kaycee Khalil RN 03/20/20 19:08: [employer] Original Note: speaking to Dr lCark from [place]
--- NOTE | 2020-03-20 19:05 | PC.NURSE ---
notified of critical creatinine level
--- NOTE | 2020-03-20 19:06 | PC.NURSE ---
spoke to Dr Clark and new med orders given, stated they would call the hospitalist and would call us back if they accept the admission
--- NOTE | 2020-03-20 19:18 | PC.NURSE ---
speaking to Dr Seay at this time
--- NOTE | 2020-03-20 19:20 | PC.NURSE ---
spoke with Dr. Seay and he stated he wouldnt accept the pt with a non contrast CT of the abdomen.
--- NOTE | 2020-03-20 19:21 | PC.NURSE ---
Dr Seay stated he would not accept the patient unless she had a CT w/o and to call him back when it was complete
--- NOTE | 2020-03-20 19:23 | CT_ITS ---
PROCEDURE: CT ABDOMEN PELVIS WO CON CLINICAL INDICATION: renal failure Generalized weakness, acute renal failure COMPARISON: No exams were available for comparison TECHNIQUE: Axial images obtained with sagittal and coronal reformats. All CT scans at the facility use one or more dose reduction, viz: automated exposure control, ma/kV adjustment per patient size (including targeted exams where dose is matched to indication, i.e. head), or iterative reconstruction technique. FINDINGS: LOWER THORAX: There is cardiomegaly. There has been prior by valvular replacement. Calcified granuloma is present in the left lower lobe. ABDOMEN & PELVIS: Hepatomegaly with fatty liver. Prior cholecystectomy. The spleen, adrenal glands, the and pancreas have an unremarkable appearance. No renal or ureteral calculi. No hydronephrosis. There is a mild amount of retained colonic feces with scattered colonic diverticula. No evidence of appendicitis or diverticulitis. There are degenerative changes at the lumbosacral junction with facet arthritic changes. No acute bony findings. IMPRESSION: 1. No acute abdominal or pelvic findings. 2. Hepatomegaly with fatty liver 3. Colonic diverticulosis Dictated by: Saad Mendoza MD 03/21/2020 10:12 Saad Mendoza MD in [place] 03/21/2020 10:12
[2020-03-20 19:25] LABS: Troponin I < 0.01 ng/ml (0.00-0.034)
--- NOTE | 2020-03-20 19:33 | PC.NURSE ---
Calling [facility] per MD request
--- NOTE | 2020-03-20 19:36 | PC.NURSE ---
[facility] transferring me to [facility] for transfer
--- NOTE | 2020-03-20 19:43 | PC.NURSE ---
Hospitalist from [facility] to call and speak with
--- NOTE | 2020-03-20 20:09 | PC.NURSE ---
speaking with the hospitalist at [facility] at this time
--- NOTE | 2020-03-20 20:14 | PC.NURSE ---
Dr Lemus accepted patient at [facility]
--- NOTE | 2020-03-20 20:21 | PC.NURSE ---
[facility] accepted flight. They will be on standby until bed assignment has been given
--- NOTE | 2020-03-20 20:38 | PC.NURSE ---
Pt's was given [facility] direction to [facility]. [facility] is on standby waiting for room
--- NOTE | 2020-03-20 20:48 | PC.NURSE ---
Still awaiting call from [facility] for bed assignment
[2020-03-20 20:55] LABS: Reflex Lactic Add Lactic Reflex
--- NOTE | 2020-03-20 21:12 | PC.NURSE ---
Spoke with Mecca at the transfer center at [facility]. No bed assigned at this time
[2020-03-20 21:31] LABS: Lactic Acid Follow Up (RFLX 1) 5.5 mmol/L (0.7-2.1)
[2020-03-20 21:45] LABS: Troponin I < 0.01 ng/ml (0.00-0.034)
--- NOTE | 2020-03-20 22:31 | PC.NURSE ---
Called [facility] for an update with bed assignment. Stated they would check their bed board and call back.
--- NOTE | 2020-03-20 22:37 | PC.NURSE ---
Mohinder called with a bed assignment and a number for report.
--- NOTE | 2020-03-20 22:39 | PC.NURSE ---
[facility] called. Flight re-accepted. 22 min ETA
[2020-03-20 23:20] LABS: Reflex Lactic (2 hrs) Add Lactic Reflex
== END 2020-03-20 23:23 | disposition other institution (70) ==
PROVIDERS: Emergency Provider Physician Assistant; PCP Family Medicine
DX: N17.9 Acute kidney failure, unspecified (principal); E87.5 Hyperkalemia; E87.2 Acidosis; Z79.01 Long term (current) use of anticoagulants; Z01.84 Encounter for antibody response examination; E11.65 Type 2 diabetes mellitus with hyperglycemia; J44.9 Chronic obstructive pulmonary disease, unspecified; I10 Essential (primary) hypertension; K21.9 Gastro-esophageal reflux disease without esophagitis; Z88.5 Allergy status to narcotic agent; Z79.84 Long term (current) use of oral hypoglycemic drugs; Z79.899 Other long term (current) drug therapy
CPT/HCPCS: 36415; 71045; 74176; 80053; 81001; 81025; 82272; 82803; 83605; 83690; 84484; 85025; 85610; 85730; 86328; 86850; 87040; 87086; 93005; 96365; 96366; 96367; 96375; 96376; 99284; G0328; J2405

== ENCOUNTER → 2020-03-30 18:11 | Outpatient (CLI) | payer OTHER, SELFPAY ==
[2020-03-30 18:32] LABS: Basophils # 0.1 K/mm3 (0-0.2); Basophils % 1.1 % (0.1-2.0); Eosinophils # 0.2 K/mm3 (0.0-0.4); Eosinophils % 3.4 % (0.1-12.0); Hematocrit 30.2 % (37.0-47.0); Hemoglobin 9.7 g/dL (12.2-16.2); Lymphocytes # 1.5 K/mm3 (0.7-4.5); Lymphocytes % 24.2 % (10-50); Mean Corpuscular HGB Conc 32.2 g/dL (31.8-35.4); Mean Corpuscular Hemoglobin 30.2 pg (27.0-31.2); Mean Corpuscular Volume 93.8 fl (81-99); Mean Platelet Volume 8.4 fl (7.4-10.4); Monocytes # 0.5 K/mm3 (0.1-1.0); Monocytes % 7.7 % (1.7-9.3); Neutrophils # 3.9 K/mm3 (1.8-7.8); Neutrophils % 63.6 % (37.0-80.0); Platelet Count 261 K/mm3 (142-424); Red Blood Count 3.22 M/mm3 (4.20-5.40); Red Cell Distribution Width 16.2 % (11.5-17.5); White Blood Count 6.2 K/mm3 (4.8-10.8)
[2020-03-30 20:33] LABS: Chloride 108 mmol/L (98-107); Potassium 4.3 mmoL/L (3.5-5.1); Sodium 143 mmol/L (136-145)
[2020-03-30 20:36] LABS: Alanine Aminotransferase 55 U/L (12-78); Albumin Level 3.6 g/dl (3.5-5.0); Albumin/Globulin Ratio 1.2 (1.1-1.8); Alkaline Phosphatase 90 U/L (38-126); Anion Gap 15.3 mEq/L (5-15); Aspartate Amino Transferase 148 U/L (14-36); Bilirubin,Total 0.3 mg/dl (0.2-1.3); Blood Urea Nitrogen 14 mg/dl (7-17); Calcium 9.5 mg/dl (8.4-10.2); Carbon Dioxide 24 mmol/L (22.0-30.0); Estimated Glomerular Filt Rate 43 ml/min (>60); GFR (African American) 51 ML/MIN (>60); Glucose 173 mg/dl (74-100); Total Protein,Serum 6.6 g/dl (6.3-8.2)
== END ==
PROVIDERS: Visit Provider Family Medicine
DX: N17.9 Acute kidney failure, unspecified (principal)
CPT/HCPCS: 80053; 85025

== ENCOUNTER → 2020-04-28 16:28 | Outpatient (CLI) | payer OTHER, SELFPAY ==
--- NOTE | 2020-04-28 | XR_ITS ---
PROCEDURE: XR KNEE LT 3V CLINICAL INDICATION: COMPARISON: CR [id number] XR knee RT 3V from 10/02/2017 FINDINGS: No fracture or dislocation. No lytic or blastic change. There is normal mineralization. The joint spaces are well-preserved. No significant degenerative/arthritic changes. No erosive changes evident. Other findings:There is a small sclerotic focus involving the distal shaft of left femur. May be due to a bone but is nonspecific. Follow-up may confirm stability IMPRESSION: No acute findings. Dictated by: Saad Mendoza MD 04/28/2020 18:22 Saad Mendoza MD in [place] 04/28/2020 18:22
== END ==
PROVIDERS: PCP Family Medicine; Visit Provider Family Medicine
DX: M25.562 Pain in left knee (principal)
CPT/HCPCS: 73562

== ENCOUNTER → 2020-05-19 16:23 | Outpatient (CLI) | payer OTHER, SELFPAY ==
--- NOTE | 2020-05-19 16:28 | XR_ITS ---
PROCEDURE: XR LUMBAR SPINE MIN 4V CLINICAL INDICATION: LOW BACK PAIN for the past 4 months COMPARISON: No exams were available for comparison FINDINGS: There is somewhat accentuated lordotic curvature of the lumbosacral junction. The lumbosacral angle is increased. All lumbar vertebrae appear intact. There is mild disc space narrowing at the L5-S1 level. There are hypertrophic facet changes at the L4-5 and L5-S1 levels. There is no pars defect. The SI joints are normal. Moderate hypertrophic facet changes lower lumbar spine. There is suggestive of bony spinal stenosis lower lumbar spine noted on the lateral projection and the clinically suspected follow-up CT scan lumbar spine would be helpful for better evaluation of possible spinal stenosis IMPRESSION: Hypertrophic facet changes lower lumbar spine, question bony spinal stenosis and consider follow-up CT scan lumbar spine if suspected clinically Dictated by: Dr. Golden Arevalo MD 05/19/2020 17:04 Dr. Golden Arevalo MD in [place] 05/19/2020 17:04
== END ==
PROVIDERS: PCP Family Medicine; Visit Provider Family Medicine
DX: M54.5 Low back pain (principal)
CPT/HCPCS: 72110

== ENCOUNTER → 2020-07-23 16:52 | Outpatient (CLI) | payer OTHER, SELFPAY ==
--- NOTE | 2020-07-23 16:55 | XR_ITS ---
PROCEDURE: XR FOOT WT BEARING LT 3V CLINICAL INDICATION: Diabetic charcot High COMPARISON: CR XR FOOT WT BEARING LT 3V from 05/13/2019 CR XR FOOT WT BEARING LT 3V from 08/06/2019 CR XR FOOT WT BEARING RT 3V from 08/06/2019 CR XR FOOT WT BEARING LT 3V from 01/29/2020 FINDINGS: There has been prior amputation of the distal aspect of the 1st metatarsal. Charcot joint is present at the tarsal metatarsal junction. There is widening the 1st intermetatarsal space with lateral subluxation of the 2nd 3rd 4th and 5th metatarsals and bony fragmentation of the cuneiforms with pes planus. Overall no significant change compared to the previous exam. There is inferior subluxation the navicular IMPRESSION: No acute findings.Charcot joint of the midfoot with midfoot deformity and widening of the Lisfranc joint with pes planus overall not significantly changed Dictated by: Saad Mendoza MD 07/23/2020 17:55 Saad Mendoza MD in [place] 07/23/2020 17:55
== END ==
PROVIDERS: PCP Family Medicine; Visit Provider Nurse Practitioner
DX: E11.610 Type 2 diabetes mellitus with diabetic neuropathic arthropathy (principal)
CPT/HCPCS: 73630

== ENCOUNTER → 2020-07-28 16:05 | Outpatient (CLI) | payer OTHER, SELFPAY ==
--- NOTE | 2020-07-28 16:08 | MR_ITS ---
PROCEDURE: MR LUMBAR SPINE WO CON CLINICAL INDICATION: SPINAL STENOSIS OF LUMBAR REGION Pt states she has severe LBP when she stands on her feet for too long. PT denies trauma or injury. COMPARISON: No exams were available for comparison TECHNIQUE: Standard multiplanar multiecho sequences are performed without contrast. 3-D MIP and myelographic images are also rendered and reviewed FINDINGS: Patient's heart valve is conditional for MRI only lie 15 minutes of scan time. Therefore, axial T1 and 3D images were not able to be performed. There is normal alignment. The spinal cord ends at the L1 level. L1-L2: Unremarkable. L2-L3: Unremarkable. L3-L4: Unremarkable. L4-5: Mild concentric bulging disc. There is facet and ligamentum hypertrophy with mild bilateral lateral recess narrowing and foraminal narrowing. Small amount of fluid is present within the facet joints. L5-S1: Mild disc desiccation. Minimal bulging disc. Mild facet and ligamentum hypertrophy with mild bilateral foraminal narrowing. IMPRESSION: 1. L4-5: Mild concentric bulging disc. There is facet and ligamentum hypertrophy with mild bilateral lateral recess narrowing and foraminal narrowing. Small amount of fluid is present within the facet joints. 2. L5-S1: Mild disc desiccation. Minimal bulging disc. Mild facet and ligamentum hypertrophy with mild bilateral foraminal narrowing. 3. No extruded herniated disc or bony canal stenosis. Dictated by: Saad Mendoza MD 07/31/2020 11:52 Saad Mendoza MD in [place] 07/31/2020 11:52
== END ==
PROVIDERS: PCP Family Medicine; Visit Provider Family Medicine
DX: M48.062 Spinal stenosis, lumbar region with neurogenic claudication (principal)
CPT/HCPCS: 72148

== ENCOUNTER → 2020-08-24 16:45 | Outpatient (CLI) | payer OTHER, SELFPAY ==
--- NOTE | 2020-08-24 16:49 | XR_ITS ---
PROCEDURE: XR KNEE LT 3V CLINICAL INDICATION: PAIN COMPARISON: CR [id number] XR knee RT 3V from 10/02/2017 FINDINGS: No fracture or dislocation. No lytic or blastic change. Small sclerotic focus is present in the distal shaft of the femur suggesting a small area of bone infarction. The joint spaces are well-preserved. No significant degenerative/arthritic changes. No erosive changes evident. Other findings:None. IMPRESSION: No change with no acute finding. Dictated by: Saad Mendoza MD 08/24/2020 17:07 Saad Mendoza MD in [place] 08/24/2020 17:07
== END ==
PROVIDERS: PCP Family Medicine; Visit Provider Family Medicine
DX: M25.562 Pain in left knee (principal)
CPT/HCPCS: 73562

== ENCOUNTER → 2020-09-03 15:08 | Outpatient (POV) | payer OTHER, SELFPAY ==
--- NOTE | 2020-09-03 16:07 | HMH.PAINSOAP ---
[facility] Pain Management SOAP Note Subjective:: Patient is a pleasant 54-year-old white female who presents today for follow-up. Patient is here due to her back pain. She is recently had an MRI showing bulging disc and ligament mentum flavum hypertrophy. Patient has difficulty with standing and walking. She rates her pain today a 0 out of 10 when she sitting but up to an 8 out of 10 when she is doing activity. Patient and I discussed lumbar epidural steroid injection she is agreeable. She is tried and failed anti-inflammatory medications. She is also tried and failed over 3 months of Lyrica. ROS General: no recent weight change, no fever, no sleep disturbances Respiratory: no cough, no shortness of air, no recurring pulmonary infections Cardiovascular/Peripheral Vascular: No chest pain, No palpitations, no edema, no shortness of breath. Gastrointestinal: no new onset incontinence, normal bowel movements reported Genitourinary: no new onset incontinence Musculoskeletal: Back pain, leg pain Psychiatric: normal mood/ affect Neurological: [denies new onset weakness in extremities], [denies new onset balance issues] Objective:: Physical Exam General: Alert and oriented x3, no acute distress, pleasant and cooperative, [on room air] Lungs: Resps E/U, Symmetrical chest expansion, Eyes: PERRL Musculoskeletal: Flexion and extension of lumbar spine somewhat guarded secondary to pain, deep tendon reflexes normal, strength in upper and lower extremities [5/5], [abnormal gait noted] Neurological: speech clear, rn social services equal, no gross sensory deficits Assessment:: Degenerative disc disease lumbar spine lumbar radiculopathy, spinal stenosis with neurogenic claudication Plan:: We will schedule her for an L4-L5 lumbar epidural steroid injection. I will follow-up with her after this reassess her symptoms at that time she has been instructed to call the office if she has any issues prior to her next appointment. She is failed over [address] Schneider has reviewed this note and agrees with this plan of care. This note was dictated using voice recognition software and may contain errors or omissions [facility] History I have reviewed the patient's past medical history: Yes Medical History: Reports:: Chronic Obstructive Pulmonary Disease (COPD), Depression, Diabetes Mellitus Type 2, Gall Bladder Disease, Gastroesophageal Reflux Disease(GERD), Hypertension, MRSA Denies:: Cancer, Diabetes Mellitus Type 1, Internal Pacemaker, Seizures *Have you ever received a pneumonia vaccine?: No *Have you received a flu vaccine this season?: Yes Other Medical History: Reports: Other. Denies: Blood Transfusion Reaction Laterality Cases: Bilateral: Other Other Surgeries: Yes: Cardiac Catheterization, Cholecystectomy, Mitral Valve Replacement, Other. No: Pacemaker Amputation: No Fractures: Yes (right foot screw) - *Social History Smoking Status: Never smoker Tobacco Type: cigarettes # Packs/Day (cigarettes): 0 #Yrs smoked (if former smoker): 0 Alcohol Intake: never Alcohol Intake Frequency:: other Substance Use Type: denies use *Occupational Status:: other Housing: house Household Members: spouse *Travel in the last 8 weeks: None - Psychiatric History Pschychiatric History:: Reports:: Depression Family Hx:: Diabetes, Hypertension, Cancer
[2020-09-03 16:27] VITALS: BP 135/78; PULSE 68; RESP 18; O2SAT 98; BMI 36.8
--- NOTE | 2020-09-04 14:28 | PC.NURSE ---
Spoke with patient and patient's today. Permission obtained from Dr Ocasio for patient to hold coumadin 6 days prior to procedure. Dr Ocasio will order lovenox bridge. Pt and notified to discontinue lovenox 24hours prior to injection. Verbalized understanding of. Also directed patient to go to lab prior to appt for PT/INR.
== END ==
PROVIDERS: Visit Provider Clinical Nurse Specialist Family Health
DX: M51.16 Intervertebral disc disorders with radiculopathy, lumbar region (principal); M48.062 Spinal stenosis, lumbar region with neurogenic claudication
CPT/HCPCS: 99212; G0463

== ENCOUNTER 2020-09-18 09:37 | Day surgery (SDC) | payer OTHER, SELFPAY ==
[2020-09-18 10:04] VITALS: BP 142/74; PULSE 93; RESP 18; TEMP 36.6; O2SAT 98; BMI 36.8
[2020-09-18 10:58] LABS: INR 1.04 (0.9-1.1); Prothrombin Time 12.2 seconds (10.1-12.5)
[2020-09-18 11:05] VITALS: BP 126/71; PULSE 89; RESP 18
[2020-09-18 11:07] VITALS: BP 127/71; PULSE 97; RESP 18; TEMP 36.8; O2SAT 98
--- NOTE | 2020-09-18 11:18 | HMH.PMPROC ---
- Procedure Date: 09/18/20 Time: 11:19 Anesthesiologist:: Rei Schneider MD Complications:: None Pre-procedure Diagnosis:: Degenerative disc disease of lumbar spine with lumbar radiculopathy symptoms and lumbar spinal stenosis with neurogenic claudication symptoms Post-procedure Diagnosis:: Same Indications for Procedure:: Patient is a pleasant 54-year-old white female who we are treating for low back pain with lumbar radiculopathy symptoms and lumbar spinal stenosis with neurogenic claudication symptoms. She does have increasing pain walking and standing. I do believe she would benefit from a lumbar epidural steroid injection with epidurogram to assess levels of stenosis and candidacy for minimally invasive lumbar decompression. Procedure Details:: Informed consent was obtained and the risk and benefits of the procedure was explained to the patient. The patient was taken to the procedure room. The patient was placed prone on the procedure table. The patient was prepped and draped in sterile fashion. C-arm fluoroscopy was used to view the lumbar spine. Skin and subcutaneous tissues were anesthetized using lidocaine. I placed an 18-gauge epidural needle and advanced into the L4-L5 interspace using fluoroscopic guidance and [id number] to air. After confirmation of needle placement in the epidural space with dye I injected 2 mL of lidocaine 1.5% with Depo-Medrol 80 mg. Patient tolerated the procedure well with no complications. Plan and Disposition:: Based on epidurogram she does have significant stenosis at L3-L4 and L4-L5 bilaterally. We will see if we can get minimally invasive lumbar decompression bilateral L3-L4 and L4-L5 approved to help her with her neurogenic claudication symptoms and low back pain.
[2020-09-18 11:25] VITALS: BP 135/90; PULSE 92; RESP 20; O2SAT 97
== END 2020-09-18 11:25 | disposition home or self-care (01) ==
LOC: SC.PAINP 09:38
PROVIDERS: PCP Family Medicine; Visit Provider Anesthesiology
DX: M51.16 Intervertebral disc disorders with radiculopathy, lumbar region (principal); M48.062 Spinal stenosis, lumbar region with neurogenic claudication
CPT/HCPCS: 36415; 62323; 85610; J1040; Q9966

== ENCOUNTER → 2020-09-29 13:17 | Outpatient (CLI) | payer OTHER, SELFPAY ==
--- NOTE | 2020-09-29 13:20 | XR_ITS ---
PROCEDURE: XR KNEE LT 4V CLINICAL INDICATION: left knee pain; weightbearing COMPARISON: CR [id number] XR knee RT 3V from 10/02/2017 CR XR KNEE LT 3V from 04/28/2020 CR XR KNEE LT 3V from 08/24/2020 FINDINGS: No acute fractures or dislocations. Bone density is normal. There is a single small focal sclerosis noted in the distal femoral diaphysis, unchanged compared to prior study. This may represent a small focal bone parked. The joint spaces are maintained. Incidental note is made of a fabella. No suprapatellar joint effusion. Visualized soft tissues are unremarkable IMPRESSION: No acute abnormality. Dictated by: Amber Villalpando 09/29/2020 14:18 Amber Villalpando in [place] 09/29/2020 14:18
== END ==
PROVIDERS: PCP Family Medicine; Visit Provider Orthopaedic Surgery
DX: M25.562 Pain in left knee (principal)
CPT/HCPCS: 73564

== ENCOUNTER → 2020-10-08 16:30 | Outpatient (CLI) | payer OTHER, SELFPAY ==
--- NOTE | 2020-10-08 16:30 | MR_ITS ---
PROCEDURE INFORMATION: Exam: MR Left Lower Extremity Joint Without Contrast, Knee Exam date and time: 10/08/2020 4:30 PM Age: 55 years old Clinical indication: Pain; Knee; Left; Additional info: Left knee pain; Evaluate for a mensical tear TECHNIQUE: Imaging protocol: MR of the Left lower extremity joint without contrast. Exam focused on the knee. COMPARISON: CR XR KNEE LT 4V 09/29/2020 1:30 PM FINDINGS: Bones and cartilage: Bone contusion at the medial tibial plateau. Joint spaces: Moderate suprapatellar joint effusion. No Roa's cyst. Medial meniscus: Complex tearing of the body segment and posterior horn the medial meniscus. Lateral meniscus: Unremarkable. No tear. Anterior cruciate ligament: Cruciate ligaments are intact. Posterior cruciate ligament: Unremarkable. No tear. Medial capsule and supporting structures: Unremarkable. No tear. Lateral capsule and supporting structures: Unremarkable. No tear. Extensor mechanism of knee: Extensor mechanism is intact. Muscles: Unremarkable. Soft tissues: Unremarkable. Other findings: Motion artifact limits assessment. Medial and lateral supporting structures are intact. IMPRESSION: 1. Complex tearing of the body segment and posterior horn the medial meniscus. 2. Bone contusion at the medial tibial plateau. 3. Moderate suprapatellar joint effusion.
== END ==
PROVIDERS: PCP Family Medicine; Visit Provider Orthopaedic Surgery
DX: M25.562 Pain in left knee (principal)
CPT/HCPCS: 73721

== ENCOUNTER → 2020-10-15 14:59 | Outpatient (POV) | payer OTHER, SELFPAY ==
[2020-10-15 15:05] VITALS: BP 156/75; PULSE 80; RESP 18; O2SAT 96; BMI 36.8
--- NOTE | 2020-10-15 15:27 | HMH.PAINSOAP ---
[facility] Pain Management SOAP Note Subjective:: Patient is a 55-year-old white female who presents today for follow-up after lumbar epidural steroid injection. 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 She is also being treated for spinal stenosis with neurogenic claudication type symptoms. Patient says that her pain is primarily in her low back and occasionally goes into her legs mainly the left leg. She says she feels as though her knee is going to give out . She is seeing orthopedics for her left leg pain. She will likely need to undergo injection/surgery to her left knee. Her pain is a 10 out of 10 today. It is in her low back radiating from side to side. She does feel better with leaning forward. She is awaiting approval for a mild procedure. She has tried and failed physical therapy for greater than 6 weeks and a continued home stretching program. She has also tried ice and heat therapies with no relief. Review of Systems General: No recent weight changes, no fever, no sleep disturbances Respiratory: No cough, no shortness of air, no recurring pulmonary infections Cardiovascular/peripheral vascular: No chest pain, no palpitations, no edema, no shortness of breath Gastrointestinal: No new onset incontinence, normal bowel movements reported Genitourinary: No new onset incontinence Musculoskeletal: Low back pain with occasional pain in the left lower extremity and knee, relief with leaning forward Psychiatric: Normal mood/affect Neurological: [Denies weakness in extremities], [denies balance issues] Objective:: Physical exam General: Alert and oriented x3, no acute distress, pleasant and cooperative, [on room air] Lungs: Respirations even and unlabored, symmetrical chest expansion Eyes: PERRL Musculoskeletal: Flexion and extension of lumbar spine somewhat guarded secondary to pain, deep tendon reflexes normal, strength in upper and lower extremities [5/5], [abnormal gait noted] Neurological: Speech clear, molder wax ball equal, no gross sensory deficit Assessment:: Degenerative disc disease lumbar spine with lumbar radiculopathy symptoms, spinal stenosis with neurogenic claudication symptoms Plan:: We are waiting approval for the mild procedure. Patient is on Coumadin that is prescribed by Dr. Ocasio. If the patient is not approved for the mild procedure she may be a SCS therapy candidate. She and I did discuss the plan of care. She is having pain in her low back with radiation into her left lower extremity. She feels better with leaning forward. We will follow-up with her after her mild procedure. If she does not get approval we will work her up for SCS therapy. Risks and benefits of the procedure have been explained to the patient. Patient would like to proceed with the procedure. Dr. Schneider has reviewed this note and agrees with this plan of care. This note was dictated using voice recognition software and make contain errors or omissions. [facility] History I have reviewed the patient's past medical history: Yes Medical History: Reports:: Chronic Obstructive Pulmonary Disease (COPD), Depression, Diabetes Mellitus Type 2, Gall Bladder Disease, Gastroesophageal Reflux Disease(GERD), Hyperlipidemia, Hypertension Denies:: Cancer, Diabetes Mellitus Type 1, Internal Pacemaker, MRSA, Seizures *Have you ever received a pneumonia vaccine?: Yes *Have you received a flu vaccine this season?: Yes Other Medical History: Reports: Hypothyroidism, Other. Denies: Blood Transfusion Reaction Laterality Cases: Bilateral: Other Other Surgeries: Yes: Cardiac Catheterization, Cholecystectomy, Mitral Valve Replacement, Other. No: Pacemaker Amputation: No Fractures: Yes (right foot screw) - *Social History Smoking Status: Never smoker Tobacco Type: cigarettes # Packs/Day (cigarettes): 0 #Yrs smoked (if former smoker): 0 Alcohol Intake: never Alcohol Intake Frequency:: other Substance
== END ==
PROVIDERS: Visit Provider Clinical Nurse Specialist Family Health
DX: M51.16 Intervertebral disc disorders with radiculopathy, lumbar region (principal); M48.062 Spinal stenosis, lumbar region with neurogenic claudication
CPT/HCPCS: 99212; G0463

== ENCOUNTER → 2020-10-21 16:35 | Outpatient (CLI) | payer OTHER, SELFPAY ==
--- NOTE | 2020-10-21 16:41 | XR_ITS ---
PROCEDURE: XR CHEST 2V CLINICAL HISTORY: surgery 11/09/20; hypertension COMPARISON: CT CT ABDOMEN PELVIS WO CON from 03/20/2020 FINDINGS: Prior median sternotomy with mitral valve and tricuspid valve prosthesis. Normal heart size. No evidence of CHF. There is evidence of old granulomatous disease. No lobar consolidation or collapse. The lungs are clear without infiltrates, suspicious nodules, or pleural effusions. No acute bony abnormalities. IMPRESSION: Prior by valvular replacement. No change with no acute finding Dictated by: Saad Mendoza MD 10/21/2020 18:22 Saad Mendoza MD in [place] 10/21/2020 18:22
--- NOTE | 2020-10-21 17:16 | ECG_ITS ---
APPROVED REPORT Exam: Resting ECG HR:86 bpm ECG Measurements Heart Rate 86 AXES ND 160 P 10 QRSd 98 QRS 104 QT 362 T 50 QTc 433 Conclusion Normal sinus rhythm Incomplete right bundle branch block Possible Right ventricular hypertrophy Abnormal ECG Electronically signed by : Wayne Rodrigez, 10/23/2020 10:25:58
[2020-10-21 17:42] LABS: Basophils % 0.9 % (0.1-2.0); Eosinophils # 0.2 K/mm3 (0.0-0.4); Eosinophils % 3.3 % (0.1-12.0); Hematocrit 37.9 % (37.0-47.0); Hemoglobin 12.8 g/dL (12.2-16.2); Lymphocytes # 1.4 K/mm3 (0.7-4.5); Lymphocytes % 29.3 % (10-50); Mean Corpuscular HGB Conc 33.8 g/dL (31.8-35.4); Mean Corpuscular Hemoglobin 30.4 pg (27.0-31.2); Mean Platelet Volume 7.1 fl (7.4-10.4); Monocytes # 0.3 K/mm3 (0.1-1.0); Monocytes % 6.6 % (1.7-9.3); Neutrophils # 2.8 K/mm3 (1.8-7.8); Neutrophils % 59.8 % (37.0-80.0); Platelet Count 177 K/mm3 (142-424); Red Blood Count 4.21 M/mm3 (4.20-5.40); Red Cell Distribution Width 15.3 % (11.5-17.5); White Blood Count 4.8 K/mm3 (4.8-10.8)
[2020-10-21 18:47] LABS: Alanine Aminotransferase 70 U/L (12-78); Albumin Level 4.3 g/dl (3.5-5.0); Albumin/Globulin Ratio 1.5 (1.1-1.8); Alkaline Phosphatase 87 U/L (38-126); Anion Gap 14.9 mEq/L (5-15); Aspartate Amino Transferase 94 U/L (14-36); Bilirubin,Total 0.5 mg/dl (0.2-1.3); Blood Urea Nitrogen 21 mg/dl (7-17); Calcium 9.3 mg/dl (8.4-10.2); Carbon Dioxide 26 mmol/L (22.0-30.0); Chloride 105 mmol/L (98-107); Estimated Glomerular Filt Rate 36 ml/min (>60); GFR (African American) 43 ML/MIN (>60); Globulin 2.8 g/dL (1.3-3.2); Glucose 234 mg/dl (74-100); Potassium 4.9 mmoL/L (3.5-5.1); Sodium 141 mmol/L (136-145); Total Protein,Serum 7.1 g/dl (6.3-8.2)
[2020-10-21 20:13] LABS: Hemoglobin A1C 9.5 % (4.0-6.0)
[2020-10-21 20:46] LABS: INR 3.04 (0.9-1.1)
== END ==
PROVIDERS: PCP Family Medicine; Visit Provider Orthopaedic Surgery
DX: Z01.818 Encounter for other preprocedural examination (principal); Z51.81 Encounter for therapeutic drug level monitoring; Z79.01 Long term (current) use of anticoagulants; M25.562 Pain in left knee
CPT/HCPCS: 36415; 71046; 80053; 83036; 85025; 85610; 93005

== ENCOUNTER → 2020-11-18 14:05 | Outpatient (CLI) | payer OTHER, SELFPAY ==
--- NOTE | 2020-11-18 14:08 | XR_ITS ---
PROCEDURE: XR FOOT WT BEARING LT 3V CLINICAL INDICATION: charcot COMPARISON: CR XR FOOT WT BEARING RT 3V from 08/06/2019 CR XR FOOT WT BEARING LT 3V from 08/06/2019 CR XR FOOT WT BEARING LT 3V from 01/29/2020 CR XR FOOT WT BEARING LT 3V from 07/23/2020 FINDINGS: S/p osteotomy of the distal aspect of the 1st metatarsal. Charcot joint of the midfoot once again noted with dorsal and lateral dislocation of the proximal aspect of the 2nd and 3rd metatarsals with pes planus. No new bony destructive changes. No acute fracture or dislocation. Flexion deformity involves the 2nd through 5th toes Other findings:None. IMPRESSION: Overall no change in the postsurgical changes and Charcot joint Dictated by: Saad Mendoza MD 11/18/2020 14:33 Saad Mendoza MD in [place] 11/18/2020 14:33
== END ==
PROVIDERS: PCP Family Medicine; Visit Provider Nurse Practitioner
DX: E11.610 Type 2 diabetes mellitus with diabetic neuropathic arthropathy (principal)
CPT/HCPCS: 73630

== ENCOUNTER → 2021-01-02 09:57 | Outpatient (CLI) | payer OTHER, SELFPAY ==
[2021-01-02 11:24] LABS: Hemoglobin A1C 6.8 % (4.0-6.0)
[2021-01-02 11:43] LABS: Alanine Aminotransferase 41 U/L (12-78); Albumin Level 4.3 g/dl (3.5-5.0); Albumin/Globulin Ratio 1.6 (1.1-1.8); Alkaline Phosphatase 68 U/L (38-126); Anion Gap 15.5 mEq/L (5-15); Aspartate Amino Transferase 60 U/L (14-36); Bilirubin,Total 0.4 mg/dl (0.2-1.3); Blood Urea Nitrogen 41 mg/dl (7-17); Calcium 9.6 mg/dl (8.4-10.2); Carbon Dioxide 26 mmol/L (22.0-30.0); Chloride 106 mmol/L (98-107); Chol/HDL Ratio 8.1 (1-3.5); Cholesterol 301 mg/dl (140-200); Estimated Glomerular Filt Rate 24 ml/min (>60); GFR (African American) 29 ML/MIN (>60); Globulin 2.7 g/dL (1.3-3.2); Glucose 147 mg/dl (74-100); HDL Cholesterol 37 mg/dl (40-60); Potassium 5.5 mmoL/L (3.5-5.1); Sodium 142 mmol/L (136-145)
[2021-01-02 11:46] LABS: Triglycerides 470 mg/dl (30-150)
[2021-01-02 11:54] LABS: Direct LDL Cholesterol 141.34 mg/dL (100-129)
[2021-01-02 12:12] LABS: Thyroid Stimulating Hormone 2.38 uIU/mL (0.465-4.68)
== END ==
PROVIDERS: Visit Provider Family Medicine
DX: E11.9 Type 2 diabetes mellitus without complications (principal); E78.5 Hyperlipidemia, unspecified; E83.42 Hypomagnesemia; E03.9 Hypothyroidism, unspecified; Z79.84 Long term (current) use of oral hypoglycemic drugs
CPT/HCPCS: 36415; 80053; 80061; 83036; 84443

== ENCOUNTER → 2021-02-18 16:20 | Outpatient (CLI) | payer OTHER, SELFPAY ==
[2021-02-18 16:46] LABS: Basophils # 0.1 K/mm3 (0-0.2); Basophils % 1.3 % (0.1-2.0); Eosinophils # 0.1 K/mm3 (0.0-0.4); Eosinophils % 1.9 % (0.1-12.0); Hematocrit 42.7 % (37.0-47.0); Hemoglobin 13.8 g/dL (12.2-16.2); Lymphocytes # 1.5 K/mm3 (0.7-4.5); Lymphocytes % 24.2 % (10-50); Mean Corpuscular HGB Conc 32.4 g/dL (31.8-35.4); Mean Corpuscular Hemoglobin 30.5 pg (27.0-31.2); Mean Corpuscular Volume 94.2 fl (81-99); Mean Platelet Volume 8.8 fl (7.4-10.4); Monocytes # 0.3 K/mm3 (0.1-1.0); Monocytes % 5.2 % (1.7-9.3); Neutrophils % 67.3 % (37.0-80.0); Platelet Count 194 K/mm3 (142-424); Red Blood Count 4.54 M/mm3 (4.20-5.40); Red Cell Distribution Width 15.4 % (11.5-17.5)
[2021-02-18 18:24] LABS: Chloride 104 mmol/L (98-107); Potassium 4.8 mmoL/L (3.5-5.1); Sodium 141 mmol/L (136-145)
[2021-02-18 18:26] LABS: Alanine Aminotransferase 40 U/L (12-78); Aspartate Amino Transferase 64 U/L (14-36); Blood Urea Nitrogen 26 mg/dl (7-17); Estimated Glomerular Filt Rate 33 ml/min (>60); GFR (African American) 40 ML/MIN (>60)
[2021-02-18 18:27] LABS: Albumin Level 4.2 g/dl (3.5-5.0); Albumin/Globulin Ratio 1.6 (1.1-1.8); Alkaline Phosphatase 76 U/L (38-126); Anion Gap 15.8 mEq/L (5-15); Bilirubin,Total 0.3 mg/dl (0.2-1.3); Calcium 9.4 mg/dl (8.4-10.2); Carbon Dioxide 26 mmol/L (22.0-30.0); Globulin 2.7 g/dL (1.3-3.2); Glucose 241 mg/dl (74-100); Total Protein,Serum 6.9 g/dl (6.3-8.2)
== END ==
PROVIDERS: Visit Provider Orthopaedic Surgery
DX: Z01.818 Encounter for other preprocedural examination (principal)
CPT/HCPCS: 36415; 80053; 85025

== ENCOUNTER → 2021-02-23 15:13 | Outpatient (CLI) | payer OTHER, SELFPAY | PROVIDERS: Visit Provider Orthopaedic Surgery | DX: Z01.812 Encounter for preprocedural laboratory examination (principal); Z11.52 Encounter for screening for COVID-19; M25.562 Pain in left knee | CPT/HCPCS: C9803; U0003; U0005 ==

== ENCOUNTER 2021-02-25 08:32 | Day surgery (SDC) | payer OTHER, SELFPAY ==
[2021-02-23 11:03] VITALS: BMI 36.3
[2021-02-25] VITALS (10 sets, daily range): BP systolic 94–131; BP diastolic 44–76; PULSE 85–103; RESP 16–19; TEMP 36.4–37.2; O2SAT 94–98
[2021-02-25 10:35] LABS: POC Glucose,Bedside 174 (70-110)
--- NOTE | 2021-02-25 11:39 | HMH.ANESCL ---
[facility] Anesthesia Checklist - Patient Identification Patient Identification: Arm Band - Structural Data Admitted From: Home Planned Operative Procedure/s: Left Knee Arthroscopy, Medial Meniscectomy, Debridement/Chondroplasty Consent for Planned Operative Procedure(s) Verified: Yes Verified Documents: Surgical Consent, History and Physical - NPO Status Verified Time NPO: 00:00 - Additional verifications Anesthesia Reactions: No Hx Blood Transfusions: No Blood Transfusion Reaction: No - Airway Assessment C-Spine Mobility Assessed: Yes (mp2) TMJ Mobility Assessed: Yes Dentition: Good Dentition - Neurological Assessment Level of Consciousness: Awake, Alert - Anesthesia Plan Anesthesia Risk discussed: Yes Anesthesia Plan: Verified ASA Class: III Anesthesia Type: General [facility] History I have reviewed the patient's past medical history: Yes Medical History: Reports:: Chronic Obstructive Pulmonary Disease (COPD), Depression, Diabetes Mellitus Type 2, Gall Bladder Disease, Gastroesophageal Reflux Disease(GERD), Hyperlipidemia, Hypertension, MRSA Denies:: Cancer, Diabetes Mellitus Type 1, Internal Pacemaker, Seizures *Have you ever received a pneumonia vaccine?: Yes *Have you received a flu vaccine this season?: Yes Other Medical History: Reports: Hypothyroidism, Other. Denies: Blood Transfusion Reaction Anesthesia experience/problems:: nac Laterality Cases: Bilateral: Other Other Surgeries: Yes: Cardiac Catheterization, Cardiac Surgery, Cholecystectomy, Mitral Valve Replacement, Other. No: Pacemaker Amputation: No Fractures: Yes (right foot screw) - *Social History Last grade of school completed: High school graduate Smoking Status: Never smoker Tobacco Type: cigarettes # Packs/Day (cigarettes): 0 #Yrs smoked (if former smoker): 0 Alcohol Intake: never Alcohol Intake Frequency:: other Substance Use Type: denies use *Occupational Status:: unemployed Housing: house Household Members: spouse *Travel in the last 8 weeks: None - Psychiatric History Pschychiatric History:: Reports:: Depression Family Hx:: Cancer, Diabetes, Hypertension, Stroke
--- NOTE | 2021-02-25 14:22 | P.PN_ITS ---
[facility] Anesthesia Record Part I Intake, IV Amount: 1,800 Estimated blood loss (mL): 2 Urine output (mL): 0 Blood Pressure: 122/60 SaO2: 98 Pulse Rate: 98 Respiratory Rate: 19 Temperature: 98.7 F Patient is:: Drowsy, Oral/Nasal airway
--- NOTE | 2021-02-25 14:46 | SUR.PHASEI ---
1445 FSBS obtained with results of 154
[2021-02-25 14:51] LABS: POC Glucose,Bedside 154 (70-110)
--- NOTE | 2021-02-26 01:07 | HMH.OPNOTE ---
Date of procedure: 02/25/21 Pre-op Diagnosis:: 1. Medial meniscal tear, left knee 2. Osteoarthritis, left knee Post-op Diagnosis:: 1. Complex degenerative tear, Medial meniscal, left knee 2. Osteoarthritis, left knee/ 3. Pathological medial plica, left knee Procedure performed:: 1. Examination of left knee under anesthesia 2. Partial medial meniscectomy, left knee 3. Chondroplasty, left knee 4. Resection of medial plica, left knee Surgeon:: Williams Villalpando MD Brake Repairer Air(s):: Diana Martin PA-C PEDIATRIC SPEECH THERAPIST:: Jacky Guerrier Anesthesia: LMA Estimated blood loss (mL): 2 Clinical Note:: The patient is a 55-year-old female with chronic left knee pain which is unresponsive to conservative management and evidence of a medial meniscal tear and arthritic changes on imaging. Clinically her symptoms are consistent with the above diagnosis. Resection of the torn medial meniscus, chondroplasty and debridement is indicated to relieve the pain and improve function of the knee. She is a non smoker and a Homemaker. Her medical history includes hypertension, hyperlipidemia, diabetes and she had a heart valve placed in 2005. She has history of Charcot's arthropathy and paresthesias in both feet at baseline secondary to diabetic peripheral neuropathy. Please refer to my office note for full details. Operative findings:: Examination of the left knee under anesthesia, showed a stable knee joint. There is a small amount of knee joint effusion. Knee range of motion is from 0-130? of flexion. Operative findings showed diffuse grade 2- 3 changes over the medial femoral condyle; grade 2 changes were noted over the medial tibial plateau. The patellofemoral lateral compartments are relatively well preserved with only minimal degenerative changes. The medial meniscus had a complex degenerative tear involving the body and posterior horn. The lateral meniscus was noted to be intact. The anterior cruciate ligament and posterior cruciate ligaments were intact. Small amount of debris and mild synovitis was noted. Operative note:: On the day of the procedure the patient and her were met in the preoperative area and patient is positively identified. A physical examination was performed and documented. The limb was marked and initialed by me. I have again discussed the diagnosis, management options including both nonsurgical and surgical. I have discussed the proposed surgical procedure, risks and benefits and alternatives in detail. The complications discussed include but are not limited to infection, injury to nerves and blood vessels, injury to the ligaments and tendons, knee stiffness, arthrofibrosis, incomplete relief, incomplete functional recovery, DVT, PE, CRPS, complications related to anesthesia including heart attack, stroke and even . I have also discussed about the likely need for further surgery in future. I told her that there were no guarantees with surgery; she could be no better or even worse. We also discussed the postoperative recovery and rehabilitation that might be needed. I believe the patient to be well informed with regard to the proposed surgery. I told her that it would take few months for full recovery of the knee after surgery. She expressed a full understanding and wished to proceed with the planned surgery. Patient understood the risks, agreed to proceed with surgery and no guarantees or assurances were given or implied. Patient was brought to the operating room and placed supine on the operating table. All the bony prominences were appropriately padded. A general anesthesia was administered by the graphic pre press trades worker. A well-padded tourniquet cuff was placed over the left upper thigh. Examination of the left knee under anesthesia was performed. A small amount of knee effusion was noted. Knee range of motion was 0-1 30 degrees of flexion. Knee joint is noted to be ligamentously stable. The left knee was then prepped and draped in the usual sterile fashion. A
--- NOTE | 2021-02-26 09:02 | HMH.ANESII ---
[facility] Anesthesia Record Part II Discharge Time: 14:51 Destination: Surgical Day Care (OP Surgery) PACU nurse assessment reviewed?: Yes Patient Condition:: Good Anesthesia Complications:: None Swallowing reflex intact?: Yes Cyanosis?: No Blood Pressure: 127/49 Pulse Rate: 99 Temperature: 98.9 F Mental Status: Alert & Oriented Pain level:: 0 Nausea and/or vomitting:: None Intake, IV Amount: 0
[2021-02-26 09:03] VITALS: BP 127/49; PULSE 99; TEMP 37.2
== END 2021-02-25 15:45 | disposition home or self-care (01) ==
LOC: OR 08:33
PROVIDERS: PCP Family Medicine; Visit Provider Orthopaedic Surgery
PROC: (CPT 29870; principal; 2021-02-25 10:15)
DX: M23.222 Derangement of posterior horn of medial meniscus due to old tear or injury, left knee (principal); M67.52 Plica syndrome, left knee; E11.9 Type 2 diabetes mellitus without complications; I10 Essential (primary) hypertension; J44.9 Chronic obstructive pulmonary disease, unspecified; E03.9 Hypothyroidism, unspecified; M17.12 Unilateral primary osteoarthritis, left knee; M25.562 Pain in left knee; Z79.84 Long term (current) use of oral hypoglycemic drugs; Z79.899 Other long term (current) drug therapy
CPT/HCPCS: 29881; 29879; 82962; 96374; J0131

== ENCOUNTER → 2021-03-12 12:42 | Outpatient (CLI) | payer OTHER, SELFPAY ==
[2021-03-13 16:02] LABS: Color,Fluid Red (Yellow); Eosinophils,Fluid 0 % (Not Estab.); Lymphocytes,Fluid 36 % (Not Estab.); Macrophages,Fluid 6 % (Not Estab.); Nucleated cells, Syn. Fluid 3720 cells/uL (0-200); Polys,Fluid 58 % (Not Estab.); RBC,Fluid >99999 /uL (Not Estab.)
== END ==
PROVIDERS: Visit Provider Orthopaedic Surgery
DX: M25.062 Hemarthrosis, left knee (principal)
CPT/HCPCS: 87070; 87205; 89051

== ENCOUNTER → 2021-04-01 16:24 | Outpatient (CLI) | payer OTHER, SELFPAY ==
[2021-04-01 16:28] LABS: Microscopic, Urine URINE MICROSCOPIC (MICROSCOPIC)
[2021-04-01 17:11] LABS: Basophils # 0.1 K/mm3 (0-0.2); Basophils % 0.9 % (0.1-2.0); Eosinophils # 0.2 K/mm3 (0.0-0.4); Eosinophils % 3.6 % (0.1-12.0); Hematocrit 40.7 % (37.0-47.0); Hemoglobin 13.2 g/dL (12.2-16.2); Lymphocytes # 1.6 K/mm3 (0.7-4.5); Lymphocytes % 26.8 % (10-50); Mean Corpuscular HGB Conc 32.5 g/dL (31.8-35.4); Mean Corpuscular Hemoglobin 30.8 pg (27.0-31.2); Mean Corpuscular Volume 94.9 fl (81-99); Mean Platelet Volume 8.2 fl (7.4-10.4); Monocytes # 0.4 K/mm3 (0.1-1.0); Neutrophils # 3.6 K/mm3 (1.8-7.8); Neutrophils % 62.7 % (37.0-80.0); Platelet Count 208 K/mm3 (142-424); Red Blood Count 4.29 M/mm3 (4.20-5.40); Red Cell Distribution Width 15.3 % (11.5-17.5); White Blood Count 5.8 K/mm3 (4.8-10.8)
[2021-04-01 17:12] LABS: INR 1.41 (0.9-1.1); Prothrombin Time 15.5 seconds (10.1-12.5)
[2021-04-01 18:10] LABS: Appearance,Urine CLEAR (Clear); Bilirubin,Urine Negative (Negative); Blood, Urine 3+ (Negative); Color,Urine YELLOW (Yellow); Glucose,Urine (UA) 3+ (Negative); Ketones,Urine Negative (Negative); Leukocyte Esterase,Urine Negative (Negative); Nitrate,Urine Negative (Negative); Protein,Urine Negative (Negative); Urobilinogen,Urine 0.2 EU/dl (0.2)
[2021-04-01 18:11] LABS: Albumin Level 4.3 g/dl (3.5-5.0); Anion Gap 16.3 mEq/L (5-15); Blood Urea Nitrogen 30 mg/dl (7-17); Calcium 9.5 mg/dl (8.4-10.2); Carbon Dioxide 25 mmol/L (22.0-30.0); Chloride 101 mmol/L (98-107); Estimated Glomerular Filt Rate 26 ml/min (>60); GFR (African American) 31 ML/MIN (>60); Glucose 399 mg/dl (74-100); Phosphorous 4.4 mg/dl (2.5-4.5); Potassium 5.3 mmoL/L (3.5-5.1); Sodium 137 mmol/L (136-145)
[2021-04-01 18:24] LABS: Intact Parathyroid Hormone 29.6 pg/mL (7.5-53.5)
[2021-04-01 18:28] LABS: 25-OH Vitamin D, Total 86.3 ng/mL (30-100)
[2021-04-01 18:30] LABS: Creatinine,Urine Random 51 mg/dL (Not Estab.)
[2021-04-01 18:49] LABS: Squamous Epithelial Cell,Urine Occasional #/hpf (0-5); WBC,Urine Occasional #/hpf (0-3)
[2021-04-01 18:50] LABS: Bacteria,Urine Trace /lpf
== END ==
PROVIDERS: Family Medicine; Visit Provider Internal Medicine Nephrology
DX: N18.4 Chronic kidney disease, stage 4 (severe) (principal); E55.9 Vitamin D deficiency, unspecified; Z51.81 Encounter for therapeutic drug level monitoring; Z79.01 Long term (current) use of anticoagulants
CPT/HCPCS: 36415; 80069; 81001; 82306; 82570; 83970; 84155; 85025; 85610

== ENCOUNTER → 2021-04-24 10:35 | Outpatient (CLI) | payer OTHER, SELFPAY ==
[2021-04-24 11:17] LABS: Basophils % 0.8 % (0.1-2.0); Eosinophils # 0.2 K/mm3 (0.0-0.4); Eosinophils % 3.1 % (0.1-12.0); Hematocrit 42.1 % (37.0-47.0); Hemoglobin 13.2 g/dL (12.2-16.2); Lymphocytes # 1.3 K/mm3 (0.7-4.5); Mean Corpuscular HGB Conc 31.4 g/dL (31.8-35.4); Mean Corpuscular Hemoglobin 30.1 pg (27.0-31.2); Mean Platelet Volume 7.1 fl (7.4-10.4); Monocytes # 0.3 K/mm3 (0.1-1.0); Monocytes % 5.5 % (1.7-9.3); Neutrophils # 3.4 K/mm3 (1.8-7.8); Neutrophils % 65.5 % (37.0-80.0); Platelet Count 156 K/mm3 (142-424); Red Blood Count 4.38 M/mm3 (4.20-5.40); Red Cell Distribution Width 14.8 % (11.5-17.5); White Blood Count 5.2 K/mm3 (4.8-10.8)
[2021-04-24 11:58] LABS: Chloride 102 mmol/L (98-107); Potassium 4.7 mmoL/L (3.5-5.1); Sodium 137 mmol/L (136-145)
[2021-04-24 12:00] LABS: Blood Urea Nitrogen 40 mg/dl (7-17); Estimated Glomerular Filt Rate 27 ml/min (>60); GFR (African American) 33 ML/MIN (>60)
[2021-04-24 12:01] LABS: Alanine Aminotransferase 43 U/L (12-78); Albumin Level 4.2 g/dl (3.5-5.0); Albumin/Globulin Ratio 1.6 (1.1-1.8); Alkaline Phosphatase 122 U/L (38-126); Anion Gap 18.7 mEq/L (5-15); Aspartate Amino Transferase 58 U/L (14-36); Bilirubin,Total 0.3 mg/dl (0.2-1.3); Calcium 9.7 mg/dl (8.4-10.2); Carbon Dioxide 21 mmol/L (22.0-30.0); Chol/HDL Ratio 5.1 (1-3.5); Cholesterol 192 mg/dl (140-200); Globulin 2.7 g/dL (1.3-3.2); Glucose 237 mg/dl (74-100); HDL Cholesterol 38 mg/dl (40-60); Total Protein,Serum 6.9 g/dl (6.3-8.2)
[2021-04-24 12:02] LABS: Triglycerides 519 mg/dl (30-150)
[2021-04-24 12:10] LABS: Hemoglobin A1C 7.7 % (4.0-6.0)
[2021-04-24 12:32] LABS: Thyroid Stimulating Hormone 0.12 uIU/mL (0.465-4.68)
== END ==
PROVIDERS: Visit Provider Thoracic Surgery (Cardiothoracic Vascular Surgery)
DX: F33.9 Major depressive disorder, recurrent, unspecified (principal)
CPT/HCPCS: 36415; 80053; 80061; 83036; 84443; 85025

== ENCOUNTER 2021-04-25 19:00 | Emergency (ER) | payer OTHER, SELFPAY ==
[2021-04-25 19:25] VITALS: BP 98/49; PULSE 84; RESP 17; TEMP 36.7; O2SAT 97; BMI 36.8
--- NOTE | 2021-04-25 19:41 | XR_ITS ---
PROCEDURE INFORMATION: Exam: XR Left Tibia and Fibula Exam date and time: 04/25/2021 7:41 PM Age: 55 years old Clinical indication: Injury or trauma; Fall; Blunt trauma; Lower leg; Patient HX: Patient fell while walking, pain over proximal left fibula area. TECHNIQUE: Imaging protocol: XR Left tibia and fibula. Views: 2 views. COMPARISON: CR XR FOOT WT BEARING LT 3V 11/18/2020 2:10 PM FINDINGS: Bones/joints: Obliquely oriented nondisplaced proximal fibular fracture. No additional fracture or dislocation Soft tissues: Normal. IMPRESSION: Nondisplaced proximal fibular fracture. No additional fracture or dislocation
--- NOTE | 2021-04-25 19:41 | XR_ITS ---
PROCEDURE INFORMATION: Exam: XR Left Ankle Exam date and time: 04/25/2021 7:41 PM Age: 55 years old Clinical indication: Injury or trauma; Fall; Blunt trauma; Ankle; Left; Patient HX: Patient fell while walking. TECHNIQUE: Imaging protocol: XR Left ankle. Views: 3 or more views. COMPARISON: CR XR ANKLE WT BEARING LT MIN 3V 05/13/2019 3:43 PM FINDINGS: Bones/joints: No acute fracture or dislocation. Soft tissues: Periarticular soft tissue swelling. IMPRESSION: No acute bone findings.
--- NOTE | 2021-04-25 19:41 | XR_ITS ---
PROCEDURE INFORMATION: Exam: XR Left Foot Exam date and time: 04/25/2021 7:41 PM Age: 55 years old Clinical indication: Injury or trauma; Blunt trauma; Prior surgery; Surgery date: 6+ months; Surgery type: Left foot surgery; Patient HX: Left foot pain due to fall. TECHNIQUE: Imaging protocol: XR Left foot. Views: 3 or more views. COMPARISON: CR XR FOOT WT BEARING LT 3V 11/18/2020 2:10 PM FINDINGS: Bones/joints: Postsurgical changes involving the 1st metatarsal status post osteotomy. Charcot joint of the midfoot once again noted with chronic dorsal and lateral dislocation of the proximal aspect of the 2nd and 3rd metatarsals. Pes planus deformity. No new bony erosive or destructive changes. No fracture or dislocation. Soft tissues: Soft tissue swelling diffusely. IMPRESSION: Chronic and postsurgical changes but no acute findings in the foot. Soft tissue swelling.
[2021-04-25 19:53] VITALS: BP 102/59; PULSE 87; RESP 18; TEMP 36.6; O2SAT 96; BMI 36.7
--- NOTE | 2021-04-25 19:56 | HMH.EDUTC ---
[facility] Disposition Clinical Impression: Left fibular fracture Qualifiers: Encounter type: initial encounter Fibula location: shaft Fracture type: closed Fracture morphology: unspecified fracture morphology Qualified Code(s): S82.402A - Unspecified fracture of shaft of left fibula, initial encounter for closed fracture Left ankle sprain Qualifiers: Encounter type: initial encounter Involved ligament of ankle: unspecified ligament Qualified Code(s): S93.402A - Sprain of unspecified ligament of left ankle, initial encounter Sprain of left foot Qualifiers: Encounter type: initial encounter Qualified Code(s): S93.602A - Unspecified sprain of left foot, initial encounter Disposition: Home, Self-Care Condition on Discharge: Good Instructions: Fibula Shaft Fracture, DI for Ankle Sprain, DI for Foot Pain Additional Instructions: Rest the extremity, apply ice for 15 minutes as tolerated three or four times per day, Elevate the extremity as much time as possible to help reduce swelling Take ibuprofen for pain. Follow up with Dr. Villalpando or Dr. Allan(orthopedics). I called Dr. Allan about your x-rays because he was deposition operator [facility]. I put in a referral but you need to call his office and schedule an appointment. Please call in the morning to get a follow up appointment. Follow up with your regular doctor. GO TO THE ER FOR ANY WORSENING SYMPTOMS Prescriptions: Ibuprofen [Ibuprofen 800mg Tablet] 800 mg PO Q8HP PRN #30 tab PRN Reason: Moderate Pain Transmission Status: Pending to [facility] Referrals: Prabhakar Ocasio MD [Primary Care Provider] - Time of Disposition: 21:58 Medical Decision Making - Medical Records Medical records reviewed: No: I reviewed the patient's medical records. - Gianfranco Inquiry Pt receiving controlled substance: No Vital Signs: 04/25/21 19:25 04/25/21 19:53 Temperature 98.1 F 98 F Temperature Source Oral Oral Pulse Rate [Right Brachial] 84 87 Respiratory Rate 17 18 Blood Pressure [Left Arm] 98/49 L 102/59 L Blood Pressure Mean [Left Arm] 65 73 Blood Pressure Source [Left Arm] Automatic Cuff Blood Pressure Position [Left Arm] Sitting 02 Sat by Pulse Oximetry 97 96 Oxygen Delivery Method Room Air - Radiology Data #1 Image(s): Tib/Fib Image Reviewed: Yes I reviewed the patient's radiology image, Yes I have reviewed radiologist's interpretation Preliminary Findings: Abnormal #2 Image(s): Ankle Image Reviewed: Yes I reviewed the patient's radiology image, Yes I discussed the image results w/the radiologist Preliminary Findings: No Fracture Seen #3 Image(s): Foot/Toes Image Reviewed: Yes I reviewed the patient's radiology image Preliminary Findings: Abnormal Medical Decision Narrative: I called Dr. Simental to discuss this case. Pictures of all the x-rays were sent to him. He called back with orders for a boot orthosis, crutches and for to call in the AM to the office to get a f/u appt. [facility] HPI - General Stated complaint: AO fall injured L ankle 1430 Time Seen by Provider: 04/25/21 19:56 Mode of Arrival: Family Vehicle Source of Information: Patient Limitations: No Limitations Description of Symptoms (Recalled from Triage Doc. by RN): patient states she had a fall earlier inside her house where she tripped over her own feet. denies dizziness before or after. further reports left lower extremity pain and a small knot. would like xrays - History of Present Illness Provider Complaint: She states that she fell today at around 1430 and twisted her left lower leg and ankle as she fell. She is having pain from just below her knee down to her foot. Her left leg is swollen from her knee down. She denies any knee injury. She is a diabetic. - Related Data Home Medications Medication Instructions Recorded Confirmed buspirone 10 mg tablet 15 mg PO BID 30 Days #120 06/08/17 04/07/21 cyanocobalamin (vitamin B-12) 500 500 mcg PO DAILY
[2021-04-25 22:13] VITALS: BP 102/59; PULSE 87; RESP 18; TEMP 36.6
--- NOTE | 2021-04-25 22:14 | PC.NURSE ---
boot used for L fibula fx
== END 2021-04-25 22:14 | disposition home or self-care (01) ==
PROVIDERS: Emergency Provider Nurse Practitioner Family; PCP Family Medicine
DX: S82.402A Unspecified fracture of shaft of left fibula, initial encounter for closed fracture (principal); W01.0XXA Fall on same level from slipping, tripping and stumbling without subsequent striking against object, initial encounter; Y92.019 Unspecified place in single-family (private) house as the place of occurrence of the external cause; J44.9 Chronic obstructive pulmonary disease, unspecified; E11.9 Type 2 diabetes mellitus without complications; K21.9 Gastro-esophageal reflux disease without esophagitis; E78.5 Hyperlipidemia, unspecified; E03.9 Hypothyroidism, unspecified; I10 Essential (primary) hypertension; Z79.899 Other long term (current) drug therapy
CPT/HCPCS: 29515; 73590; 73610; 73630; 99202; G0463

== ENCOUNTER → 2021-04-26 14:04 | Outpatient (CLI) | payer OTHER, SELFPAY ==
--- NOTE | 2021-04-26 14:10 | CT_ITS ---
PROCEDURE: CT ANKLE LT WO CON CLINICAL HISTORY: evalute for left ankle fracture Injury with pain COMPARISON: CR XR FOOT WT BEARING LT 3V from 07/23/2020 CR XR FOOT LT MIN 3V from 04/25/2021 CR XR ANKLE LT MIN 3V from 04/25/2021 TECHNIQUE: Axial images obtained with sagittal and coronal reformats. All CT scans at the facility use one or more dose reduction, viz: automated exposure control, ma/kV adjustment per patient size (including targeted exams where dose is matched to indication, i.e. head), or iterative reconstruction technique. FINDINGS: There is generalized motion artifact. A nondisplaced longitudinal fracture involves the posterior aspect of the distal tibia extending to the articular surface. The ankle mortise is preserved. No additional fractures are evident. The talar dome has an unremarkable appearance. Chronic changes are present in foot however, there is extensive motion artifact precluding adequate evaluation. Also the images do not cover the entire foot. There is superior displacement of the metatarsals 2 through 5 with widening of the Lisfranc joint. There is mild soft tissue edema laterally. The peroneal tendons are prominent. There is some coarse calcification noted the central aspect of the peroneal tendons just above the level of the ankle joint. IMPRESSION: Nondisplaced posterior distal tibial fracture. Other nonacute findings as described above Dictated by: Saad Mendoza MD 04/27/2021 13:12 Saad Mendoza MD in [place] 04/27/2021 13:12
== END ==
PROVIDERS: PCP Family Medicine; Visit Provider Orthopaedic Surgery
DX: S99.912A Unspecified injury of left ankle, initial encounter (principal)
CPT/HCPCS: 73700

== ENCOUNTER → 2021-04-28 15:31 | Outpatient (CLI) | payer OTHER, SELFPAY ==
--- NOTE | 2021-04-28 15:34 | US_ITS ---
PROCEDURE: US KIDNEY CLINICAL INDICATION: CHRONIC KIDNEY DISEASE STAGE 1 COMPARISON: CT CT ABDOMEN PELVIS WO CON from 03/20/2020 FINDINGS: The right kidney is [id number]. No hydronephrosis, cortical thinning, or renal mass or perinephric fluid collection is evident. The left kidney is [id number]. No hydronephrosis, cortical thinning, or renal mass or perinephric fluid collection is evident. IMPRESSION: Unremarkable bilateral renal ultrasound Dictated by: Saad Mendoza MD 04/28/2021 17:31 Saad Mendoza MD in [place] 04/28/2021 17:31
[2021-04-28 16:43] LABS: Microscopic, Urine URINE MICROSCOPIC (MICROSCOPIC)
[2021-04-28 17:52] LABS: Albumin Level 4.1 g/dl (3.5-5.0); Anion Gap 9.8 mEq/L (5-15); Blood Urea Nitrogen 44 mg/dl (7-17); Calcium 9.5 mg/dl (8.4-10.2); Carbon Dioxide 27 mmol/L (22.0-30.0); Chloride 107 mmol/L (98-107); Estimated Glomerular Filt Rate 31 ml/min (>60); GFR (African American) 38 ML/MIN (>60); Glucose 137 mg/dl (74-100); Phosphorous 3.6 mg/dl (2.5-4.5); Potassium 4.8 mmoL/L (3.5-5.1); Sodium 139 mmol/L (136-145)
[2021-04-28 18:43] LABS: Appearance,Urine CLEAR (Clear); Bilirubin,Urine Negative (Negative); Blood, Urine Negative (Negative); Color,Urine YELLOW (Yellow); Glucose,Urine (UA) 2+ (Negative); Ketones,Urine Negative (Negative); Leukocyte Esterase,Urine Negative (Negative); Nitrate,Urine Negative (Negative); Protein,Urine Negative (Negative); Specific Gravity, Urine 1.015 (1.005-1.030); Urobilinogen,Urine 0.2 EU/dl (0.2)
[2021-04-28 19:49] LABS: Bacteria,Urine Trace /lpf; RBC,Urine Occasional #/hpf (0-3)
[2021-05-02 17:08] LABS: Cytoplasmic (C-ANCA) <1:20 titer (Neg:<1:20); Perinuclear (P-ANCA) <1:20 titer (Neg:<1:20)
== END ==
PROVIDERS: PCP Family Medicine; Visit Provider Obstetrics & Gynecology
DX: I12.9 Hypertensive chronic kidney disease with stage 1 through stage 4 chronic kidney disease, or unspecified chronic kidney disease (principal)
CPT/HCPCS: 36415; 76770; 80069; 81001; 86256

== ENCOUNTER → 2021-05-03 16:32 | Outpatient (CLI) | payer OTHER, SELFPAY ==
--- NOTE | 2021-05-03 16:35 | XR_ITS ---
PROCEDURE INFORMATION: Exam: XR Left Ankle Exam date and time: 05/03/2021 4:35 PM Age: 55 years old Clinical indication: Pain; Patient HX: F/u to FX, left ankle in hard cast; Additional info: Lt ankle/fib fracture; In cast TECHNIQUE: Imaging protocol: XR Left ankle. Views: 3 or more views. COMPARISON: CT ANKLE LT WO CON 04/26/2021 2:22 PM FINDINGS: Bones/joints: Cast material limits exam. Tibial fracture not well seen today. Postsurgical changes noted. Charcot in the midfoot again noted. Soft tissues: Diffuse swelling. IMPRESSION: Tibial fracture not as well seen today
== END ==
PROVIDERS: PCP Family Medicine; Visit Provider Orthopaedic Surgery
DX: S82.892A Other fracture of left lower leg, initial encounter for closed fracture (principal)
CPT/HCPCS: 73610

== ENCOUNTER → 2021-06-01 14:48 | Outpatient (CLI) | payer OTHER, SELFPAY ==
--- NOTE | 2021-06-01 14:52 | XR_ITS ---
FINAL REPORT CLINICAL HISTORY: LT ANKLE FRACTURE; AFTER CAST REMOVAL COMPARISON: 04/25/2021 FINDINGS: LEFT ANKLE Three views of the left ankle were obtained. No definite ankle fracture is identified. There are postoperative changes of the first metatarsal. There are multiple fractures of the other metatarsals which appear subacute. There is soft tissue swelling about the ankle. IMPRESSION: No definite ankle fracture. Multiple metatarsal fractures as above. Dedicated foot radiographs may be helpful. Reviewed, Interpreted and Dictated by Sameer Forde III, MD Transcribed by Yari Valdez Authenticated by Sameer Forde III, MD on 06/02/2021 09:55:21 AM [facility]
--- NOTE | 2021-06-01 16:04 | XR_ITS ---
FINAL REPORT CLINICAL HISTORY: LT proximal tibial fx COMPARISON: April 25, 2021 FINDINGS: LEFT KNEE Two views of the left knee were obtained. There is a comminuted, subacute proximal fibular diaphysis fracture. There is evidence of interval callus formation. There is a small calcification adjacent to the medial tibial plateau, a small avulsion fracture is not excluded. Visualized joint spaces are normally aligned. IMPRESSION: Proximal fibular fracture as described. Small calcification adjacent to medial tibial plateau, small avulsion fracture not excluded. Reviewed, Interpreted and Dictated by Sameer Forde III, MD Transcribed by Jess Ivan Authenticated by Sameer Forde III, MD on 06/01/2021 05:00:11 PM [facility]
== END ==
PROVIDERS: PCP Family Medicine; Visit Provider Orthopaedic Surgery
DX: S82.202A Unspecified fracture of shaft of left tibia, initial encounter for closed fracture (principal); S82.402A Unspecified fracture of shaft of left fibula, initial encounter for closed fracture; S82.102A Unspecified fracture of upper end of left tibia, initial encounter for closed fracture
CPT/HCPCS: 73560; 73610

== ENCOUNTER 2021-06-01 16:32 | Outpatient (RCR) | payer OTHER, SELFPAY | END 2021-06-01 17:20 | disposition home or self-care (01) | LOC: PT 16:32 | PROVIDERS: Visit Provider Orthopaedic Surgery | DX: S82.202D Unspecified fracture of shaft of left tibia, subsequent encounter for closed fracture with routine healing (principal); S82.402D Unspecified fracture of shaft of left fibula, subsequent encounter for closed fracture with routine healing ==

== ENCOUNTER → 2021-07-12 16:36 | Outpatient (CLI) | payer OTHER, SELFPAY ==
--- NOTE | 2021-07-12 16:40 | XR_ITS ---
PROCEDURE INFORMATION: Exam: XR Left Ankle Exam date and time: 07/12/2021 4:40 PM Age: 55 years old Clinical indication: Pain; Ankle; Left; Additional info: Ankle pain TECHNIQUE: Imaging protocol: XR Left ankle. Views: 3 or more views. COMPARISON: CR XR ANKLE LT MIN 3V 06/01/2021 2:54 PM FINDINGS: Bones/joints: Postsurgical changes compatible with amputation of the 1st and 2nd metatarsals. Soft tissues: Moderate soft tissue swelling surrounding the ankle. IMPRESSION: Moderate soft tissue swelling surrounding the ankle.
== END ==
PROVIDERS: PCP Family Medicine; Visit Provider Orthopaedic Surgery
DX: S82.202A Unspecified fracture of shaft of left tibia, initial encounter for closed fracture (principal); S82.402A Unspecified fracture of shaft of left fibula, initial encounter for closed fracture
CPT/HCPCS: 73610

== ENCOUNTER 2021-07-15 16:00 | Outpatient (RCR) | payer OTHER, SELFPAY ==
--- NOTE | 2021-06-09 16:26 | HMH.PTOPEV ---
PT Outpatient Evaluation Rehab PT Outpatient Evaluation Start: 06/09/21 15:48 Freq: Status: Active Protocol: Document 06/09/21 15:51 DANAISAMAR (Rec: 06/09/21 16:26 NELSY [id number]) Electronically Signed By Gerard Smith PT 06/09/21 15:51 Outpatient Therapy Subjective History Subjective History This is the initial Physical THerapy evaluation for Margareth Cardona. Pt is a 55 y/o female referred to PT for care s/p L tib/fib fx. Pt reports she broke leg prior to gayatri. She states she was walking into the kitchen and just fell backwards -does not recall reason for fall. Pt states she went to [facility] and received Xrays which revealed fracture. Pt then reports she went to orthopod and was told she had tib/fib fracture. Casted NWB for 5 weeks then put in CAM walker. Now PT is PWBAT wean out of boot in 2 weeks. Chief Complaint Pain,Stiff,Swelling Symptom Type Ache,Throb,Sharp,Burning, Numbness Symptoms Relieved By Rest/Positioning,Elevation Symptoms Aggravated By Standing,Physical Activity, Walking Prior Functional Limitations None Current Functional Limitations Housework,Standing,Squatting, Recreation Activity,Walking, Stairs Level of pain today (0-10) 0 Pain scale - at its best (0-10) 0 Pain scale - at its worst (0-10) 7 Ankle/Foot Eval Gait Observation General Gait Pattern Observation Antalgic Gait Assistive Device Ambulation Assistive Device None Palpation Tenderness left Ankle/Foot Palpation Findings Tenderness Ankle/Foot Palpation Overall Comment TTP along distal fibula ROM Ankle/Foot Dorsiflexion w/Knee Extended 5 Active Range Motion (degrees) Ankle/Foot Plantar Flexion Active Range 40 of Motion (degrees) Ankle/Foot Eversion Active Range of 25 Motion (degrees) Ankle/Foot Inversion Active Range of 25 Motion (degrees) Ankle/Foot ROM Limitations Soft Tissue Tightness,Muscle Weakness,Pain MMT Ankle Dorsiflexion Strength Grade 4- Good- Ankle Plantarflexion Strength Grade 4- Good- Foot Eversion Strength Grade 4- Good- Foot Inversion Strength Grade 4- Good- Outpatient The
== END 2021-07-15 16:05 | disposition home or self-care (01) ==
LOC: PT 16:00
PROVIDERS: PCP Family Medicine; Visit Provider Orthopaedic Surgery
DX: S82.302D Unspecified fracture of lower end of left tibia, subsequent encounter for closed fracture with routine healing (principal); S82.832D Other fracture of upper and lower end of left fibula, subsequent encounter for closed fracture with routine healing
CPT/HCPCS: 97010; 97110; 97116; 97140; 97163; 97164

== ENCOUNTER → 2021-07-26 15:59 | Outpatient (CLI) | payer OTHER, SELFPAY ==
[2021-07-26 16:17] LABS: Microscopic, Urine URINE MICROSCOPIC (MICROSCOPIC)
[2021-07-26 16:45] LABS: Hematocrit 42.3 % (37.0-47.0); Mean Corpuscular HGB Conc 30.7 g/dL (31.8-35.4); Mean Corpuscular Hemoglobin 29.7 pg (27.0-31.2); Mean Corpuscular Volume 96.7 fl (81-99); Platelet Count 162 K/mm3 (142-424); Red Blood Count 4.38 M/mm3 (4.20-5.40); Red Cell Distribution Width 16.2 % (11.5-17.5); White Blood Count 5.6 K/mm3 (4.8-10.8)
[2021-07-26 18:12] LABS: Appearance,Urine CLEAR (Clear); Bilirubin,Urine Negative (Negative); Blood, Urine 3+ (Negative); Color,Urine YELLOW (Yellow); Glucose,Urine (UA) 3+ (Negative); Ketones,Urine Negative (Negative); Leukocyte Esterase,Urine TRACE (Negative); Nitrate,Urine Negative (Negative); Protein,Urine Negative (Negative); Urobilinogen,Urine 0.2 EU/dl (0.2)
[2021-07-26 18:15] LABS: Albumin Level 4.3 g/dl (3.5-5.0); Anion Gap 12.3 mEq/L (5-15); Blood Urea Nitrogen 34 mg/dl (7-17); Calcium 8.6 mg/dl (8.4-10.2); Carbon Dioxide 26 mmol/L (22.0-30.0); Chloride 105 mmol/L (98-107); Estimated Glomerular Filt Rate 31 ml/min (>60); GFR (African American) 38 ML/MIN (>60); Glucose 99 mg/dl (74-100); Phosphorous 3.4 mg/dl (2.5-4.5); Potassium 4.3 mmoL/L (3.5-5.1); Sodium 139 mmol/L (136-145)
[2021-07-26 18:28] LABS: Intact Parathyroid Hormone 39.8 pg/mL (7.5-53.5)
[2021-07-26 18:32] LABS: 25-OH Vitamin D, Total 72.7 ng/mL (30-100)
[2021-07-26 18:36] LABS: Creatinine,Urine Random 100 mg/dL (Not Estab.)
[2021-07-26 19:01] LABS: WBC,Urine Occasional #/hpf (0-3)
[2021-07-29 08:16] LABS: Cytoplasmic (C-ANCA) <1:20 titer (Neg:<1:20); Perinuclear (P-ANCA) <1:20 titer (Neg:<1:20)
== END ==
PROVIDERS: Visit Provider Internal Medicine
DX: N18.4 Chronic kidney disease, stage 4 (severe) (principal)
CPT/HCPCS: 36415; 80069; 81001; 82306; 82570; 83970; 84155; 85014; 85018; 85048; 85049; 86256

== ENCOUNTER 2021-08-03 19:44 | Emergency (ER) | payer OTHER, SELFPAY ==
--- NOTE | 2021-08-03 21:17 | HMH.EDUTC ---
[facility] Disposition Clinical Impression: Strep throat Disposition: Home, Self-Care Condition on Discharge: Good Instructions: DI for Strep Throat, Strep Throat Additional Instructions: Take tylenol or ibuprofen for pain or fever. Take the medications as directed. Follow up with your regular doctor. GO TO THE ER FOR ANY WORSENING SYMPTOMS Throw your tooth brush away and get a new one. Prescriptions: Ondansetron [Zofran 4mg ODT] 4 mg PO Q8HP PRN #20 tab PRN Reason: Nausea Transmission Status: Pending to [facility] Amoxicillin/Potassium Clav [Amox-Clav 875-125 mg Tablet] 1 tab PO BID #20 tab Transmission Status: Pending to [facility] Referrals: Prabhakar Ocasio MD [Primary Care Provider] - Time of Disposition: 22:16 Medical Decision Making - Medical Records Medical records reviewed: No: I reviewed the patient's medical records. - Gianfranco Inquiry Pt receiving controlled substance: No Vital Signs: 08/03/21 21:21 Temperature 99 F Temperature Source Oral Pulse Rate [Left] 91 H Respiratory Rate 22 Blood Pressure [Right Arm] 98/63 L Blood Pressure Mean [Right Arm] 74 02 Sat by Pulse Oximetry 96 - Lab Data Lab results reviewed: Yes: I reviewed the patient's lab results. Lab Results 08/03/21 21:29: Strep Scn Rapid Clinic Positive A Orders (Tests/Meds): ED MEDICATIONS Discontinued Medications Generic Name Dose Route Start Last Admin Trade Name Freq PRN Reason Stop Dose Admin Ceftriaxone Sodium 1 gm 08/03/21 22:04 Ceftriaxone 1gm Vial IM 08/03/21 22:05 ONCE ONE Lidocaine HCl 0 ml 08/03/21 22:04 Lidocaine 1% 5ml Pf Vial IM 08/03/21 22:05 ONCE ONE ORDERS Category Date Time Status Full Resp Panel w/COVID ([facility]) Routine Lab 08/03/21 21:16 Received [facility] HPI - General Stated complaint: weakness,GUZMAN,V&D,runny nose Time Seen by Provider: 08/03/21 21:20 - History of Present Illness Provider Complaint: She states that she has felt weak all day today, like she is getting sick. She has a sore throat, but no other symptoms at this time. She denies any shortness of breath, chest congestion, edema or other complaints. - Related Data Home Medications Medication Instructions Recorded Confirmed buspirone 10 mg tablet 15 mg PO BID 30 Days #120 06/08/17 06/01/21 cyanocobalamin (vitamin B-12) 500 500 mcg PO DAILY tab 10/03/17 06/01/21 mcg tablet metoprolol tartrate 25 mg tablet 25 mg PO BID 90 Days #180 tab 10/03/17 06/01/21 multivitamin 1 tab PO QAM 10/03/17 06/01/21 omega-3 fatty acids 1,000 mg 2,000 mg PO BID cap 10/03/17 06/01/21 capsule aripiprazole 5 mg tablet 5 mg PO DAILY 30 Days #30 12/04/17 06/01/21 lisinopril 20 1 tab PO DAILY 90 Days #90 12/04/17 06/01/21 mg-hydrochlorothiazide 12.5 mg tablet pantoprazole 40 mg tablet,delayed 40 mg PO DAILY 90 Days #90 12/04/17 06/01/21 release pregabalin 100 mg capsule 100 mg PO DAILY 30 Days #90 12/04/17 06/01/21 Metformin HCl [Metformin 500mg 1,000 mg PO BID 02/08/18 06/01/21 Tablet] bupropion HCl 150 mg 24 hr tablet, 150 mg PO DAILY #90 tab 03/06/19 06/01/21 extended release levothyroxine 50 mcg tablet 50 mcg PO DAILY #30 tab 03/06/19 06/01/21 estradiol 1 mg tablet 1 mg PO DAILY tab 08/06/19 06/01/21 metoclopramide HCl 10 mg tablet 10 mg PO AC tab 08/06/19 06/01/21 warfarin 5 mg tablet 7.5 mg PO DAILY 30 Days #60 08/06/19 06/01/21 benztropine 0.5 mg tablet 0.5 mg PO DAILY tab 07/23/20 06/01/21 glimepiride 1 mg tablet 1 mg PO DAILY tab 07/23/20 06/01/21 quetiapine 100 mg tablet 100 mg PO DAILY tab 07/23/20 06/01/21 vilazodone 20 mg tablet 20 mg PO DAILY tab 07/23/20 06/01/21 Enoxaparin Sodium [Lovenox 100 mg SQ BID 02/25/21 06/01/21 100mg/mL syringe] Previous Rx's Medication Instructions Recorded oxycodone-acetaminophen 5 mg-325 1 tab PO Q6H PRN #30 tab 03/10/21 mg tablet Ibuprofen [Ibuprofen 800mg 800 mg PO Q8HP PRN #30 tab
[2021-08-03 21:21] VITALS: BP 98/63; PULSE 91; RESP 22; TEMP 37.2; O2SAT 96; BMI 36.7
[2021-08-03 21:35] LABS: Adenovirus,PCR Not Detected (NotDetected); Bordetella Pertussis Not Detected (NotDetected); Chlamydophila Pneumoniae, PCR Not Detected (NotDetected); Coronavirus 19, PCR Not Detected (NotDetected); Coronavirus 229E Not Detected (NotDetected); Coronavirus NL63 Not Detected (NotDetected); Coronavirus OC43 Not Detected (NotDetected); Coronovirus HKU1,PCR Not Detected (NotDetected); Human Metapneumovirus Not Detected (NotDetected); Influenza A, PCR Not Detected (NotDetected); Influenza AH1, 2009 Not Detected (NotDetected); Influenza AH1, PCR Not Detected (NotDetected); Influenza AH3,PCR Not Detected (NotDetected); Influenza B, PCR Not Detected (NotDetected); Mycoplasma Pneumoniae, PCR Not Detected (NotDetected); Parainfluenza 1, PCR Not Detected (NotDetected); Parainfluenza 2, PCR Not Detected (NotDetected); Parainfluenza 3, PCR Not Detected (NotDetected); Parainfluenza 4, PCR Not Detected (NotDetected); Respiratory Syncytial Virus Not Detected (NotDetected); Rhinovirus/Enterovirus Not Detected (NotDetected)
[2021-08-03 21:40] LABS: UTC Strep Screen (Rapid) Positive (Negative)
[2021-08-03 22:21] VITALS: BP 98/63; PULSE 91; RESP 22; TEMP 37.2
== END 2021-08-03 22:22 | disposition home or self-care (01) ==
PROVIDERS: Emergency Provider Nurse Practitioner Family; PCP Family Medicine
DX: J02.0 Streptococcal pharyngitis (principal); B95.0 Streptococcus, group A, as the cause of diseases classified elsewhere; R53.1 Weakness; R51.9 Headache, unspecified; R11.2 Nausea with vomiting, unspecified; Z20.822 Contact with and (suspected) exposure to COVID-19; I10 Essential (primary) hypertension; E78.5 Hyperlipidemia, unspecified; K21.9 Gastro-esophageal reflux disease without esophagitis; E11.9 Type 2 diabetes mellitus without complications; E03.9 Hypothyroidism, unspecified; J44.9 Chronic obstructive pulmonary disease, unspecified; K82.9 Disease of gallbladder, unspecified; F32.A Depression, unspecified; Z86.14 Personal history of Methicillin resistant Staphylococcus aureus infection; Z79.01 Long term (current) use of anticoagulants; Z79.4 Long term (current) use of insulin; Z79.84 Long term (current) use of oral hypoglycemic drugs; Z79.890 Hormone replacement therapy; Z79.899 Other long term (current) drug therapy; Z88.5 Allergy status to narcotic agent; Z82.49 Family history of ischemic heart disease and other diseases of the circulatory system; Z80.9 Family history of malignant neoplasm, unspecified; Z83.3 Family history of diabetes mellitus
CPT/HCPCS: 87581; 87632; 87798; 87880; 96372; 99213; C9803; G0463; J0696; U0003; U0005

== ENCOUNTER 2021-08-08 10:20 | Inpatient (IN) | payer OTHER, SELFPAY ==
[2021-08-08] VITALS (23 sets, daily range): BP systolic 53–119; BP diastolic 24–92; PULSE 61–104; RESP 18–22; TEMP 34.5–36.9; O2SAT 91–98; BMI 40.2; BMI 42.5
--- NOTE | 2021-08-08 13:23 | HMH.EDGENADL ---
ED Disposition Clinical Impression: Hypovolemic shock, Dehydration, Hyperkalemia Diarrhea Qualifiers: Diarrhea type: presumed infectious Qualified Code(s): R19.7 - Diarrhea, unspecified Acute renal failure Qualifiers: Acute renal failure type: unspecified Qualified Code(s): N17.9 - Acute kidney failure, unspecified UTI (urinary tract infection) Qualifiers: Urinary tract infection type: site unspecified Hematuria presence: with hematuria Qualified Code(s): N39.0 - Urinary tract infection, site not specified; R31.9 - Hematuria, unspecified Disposition: Admitted As Inpatient Condition on Discharge: Serious - Critical Care Critical Care Time: Yes Attestation: On 08/08/21, the high probability of a clinically significant, sudden or life threatening deterioration of the following system(s) required my full and direct attention, intervention and personal management. The time I documented below is in addition to time spent performing reported procedures but includes the following listed in this critical care notation. Total Critical Care Time: 45 Vital system(s) involved:: Circulatory Failure, Renal Failure My critical care processes included: Assessment & monitoring of V/S, Initial and Re-exams, Data Review/Interpretation, Coordinating Care, Medication Orders and management, Documentation Medical Decision Making - Medical Records Medical records reviewed: Yes: I reviewed the patient's medical records. MR Comment: Reviewed urgent treatment center note from 08/03/2021. Diagnosed with strep throat and given injection of Rocephin and discharged on Augmentin. Blood pressure was 98 systolic at that time. - Gianfranco Inquiry Pt receiving controlled substance: No Vital Signs: 08/08/21 10:21 08/08/21 12:43 08/08/21 12:54 Temperature 94.1 F L Temperature Source Rectal Pulse Rate 61 Pulse Rate [Left Radial] 97 H Respiratory Rate 22 Blood Pressure 118/92 H 53/35 L Blood Pressure [Right Arm] 118/92 H Blood Pressure Mean 97 41 Blood Pressure Mean [Right Arm] 100 Blood Pressure Source [Right Arm] Automatic Cuff Blood Pressure Position [Right Arm] Sitting 02 Sat by Pulse Oximetry 97 97 Oxygen Delivery Method Room Air 08/08/21 13:02 08/08/21 13:16 08/08/21 13:23 Temperature Temperature Source Pulse Rate 82 78 84 Pulse Rate [Left Radial] Respiratory Rate Blood Pressure 72/33 L 67/24 L 81/32 L Blood Pressure [Right Arm] Blood Pressure Mean 43 38 38 Blood Pressure Mean [Right Arm] Blood Pressure Source [Right Arm] Blood Pressure Position [Right Arm] 02 Sat by Pulse Oximetry 95 98 98 Oxygen Delivery Method 08/08/21 13:27 08/08/21 14:30 08/08/21 15:00 Temperature Temperature Source Pulse Rate 86 88 Pulse Rate [Left Radial] Respiratory Rate Blood Pressure 80/50 L 86/37 L 92/62 L Blood Pressure [Right Arm] Blood Pressure Mean 54 54 72 Blood Pressure Mean [Right Arm] Blood Pressure Source [Right Arm] Blood Pressure Position [Right Arm] 02 Sat by Pulse Oximetry 96 97 97 Oxygen Delivery Method 08/08/21 15:31 08/08/21 16:02 08/08/21 16:14 Temperature Temperature Source Pulse Rate 95 H 96 H 93 H Pulse Rate [Left Radial] Respiratory Rate Blood Pressure 86/38 L 71/49 L 110/88 Blood Pressure [Right Arm] Blood Pressure Mean 59 54 91 Blood Pressure Mean [Right Arm] Blood Pressure Source [Right Arm] Blood Pressure Position [Right Arm] 02 Sat by Pulse Oximetry 96 96 Oxygen Delivery Method 08/08/21 16:30 08/08/21 17:01 08/08/21 18:10 Temperature Temperature Source Pulse Rate 95 H 95 H 99 H Pulse Rate [Left Radial] Respiratory Rate Blood Pressure 108/68 L 119/92 H 98/43 L Blood Pressure [Right Arm] Blood Pressure Mean 94 97 53 Blood Pressure Mean [Right Arm] Blood Pressure Source [Right Arm] Blood Pressure Position [Right Arm] 02 Sat by Pulse Oximetry 96 98 97 Oxygen Delivery Method
--- NOTE | 2021-08-08 13:26 | ECG_ITS ---
APPROVED REPORT Exam: Resting ECG HR:79 bpm ECG Measurements Heart Rate 79 AXES DC 188 P -2 QRSd 133 QRS 117 QT 423 T 44 QTc 458 Conclusion SINUS RHYTHM RIGHT BUNDLE BRANCH BLOCK [120+ ms QRS DURATION, UPRIGHT V1, 40+ ms S IN I/aVL/V4/V5/V6] LEFT POSTERIOR FASCICULAR BLOCK [QRS AXIS > 109, INFERIOR Q] ABNORMAL ECG UNCONFIRMED REPORT Electronically signed by : Wayne Rodrigez MD 08/08/2021 20:07:33
--- NOTE | 2021-08-08 13:30 | PC.NURSE ---
LAbs were drawn at 1250 when IV was started, LAb contacted 45 mins after for results of lab who states they have no knowledge of this pt labs. LAbs were sent mislabeled and once staff was aware, lab came and redrew labs for pt orders. Family and MD aware of this issue
--- NOTE | 2021-08-08 13:46 | XR_ITS ---
PROCEDURE INFORMATION: Exam: XR Chest Exam date and time: 08/08/2021 2:06 PM Age: 55 years old Clinical indication: Other: Weakness, AMS; Additional info: Weak TECHNIQUE: Imaging protocol: XR of the chest. Views: 1 view. COMPARISON: CR XR CHEST 2V 10/21/2020 4:47 PM FINDINGS: Tubes, catheters and devices: There are sternal wires consistent with previous sternotomy incision. Airway: Patent Lungs: Low lung volumes causes crowding of the bronchovascular structures. No acute interstitial or airspace disease. Pleural spaces: Unremarkable. No pleural effusion. No pneumothorax. Heart/Mediastinum: Prior mitral and tricuspid valve replacements. The heart is moderately enlarged. Bones/joints: No acute skeletal abnormality or aggressive osseous lesion. Organs: Surgical clips are present in the right upper quadrant, consistent with previous cholecystectomy. IMPRESSION: No acute thoracic pathology.
--- NOTE | 2021-08-08 13:48 | CT_ITS ---
PROCEDURE INFORMATION: Exam: CT Abdomen And Pelvis Without Contrast Exam date and time: 08/08/2021 2:02 PM Age: 55 years old Clinical indication: Other: Weakness, abd pain; Additional info: Abdomen pain and weakness TECHNIQUE: Imaging protocol: Computed tomography of the abdomen and pelvis without contrast. Radiation optimization: All CT scans at this facility use at least one of these dose optimization techniques: automated exposure control; mA and/or kV adjustment per patient size (includes targeted exams where dose is matched to clinical indication); or iterative reconstruction. COMPARISON: CT ABDOMEN PELVIS WO CON 03/20/2020 7:41 PM FINDINGS: Limitations: Study partially limited by motion. Tubes, catheters and devices: A balloon bladder catheter is present. Lungs: Calcified granuloma in the left lung base is of no clinical concern. Lung bases are clear. Liver: There is enlargement of the liver, measuring 19.3 cm. There is a diffuse decrease in hepatic parenchymal density, consistent with fatty infiltration. The liver is otherwise unremarkable. Gallbladder and bile ducts: Prior cholecystectomy. Mild intra-and extrahepatic biliary ductal dilation is most likely the sequela of prior cholecystectomy in the absence of clinical symptomatology. Pancreas: Normal. No ductal dilation. Spleen: Punctate calcification in the spleen is of no clinical concern. The spleen is otherwise unremarkable. Adrenal glands: Normal. No mass. Kidneys and ureters: Possible 1.6 cm cyst in the right kidney. Consider correlation with nonemergent ultrasound. The right kidney is otherwise unremarkable. The right ureter is normal. The left ureter is normal. The left kidney is normal. Stomach and bowel: No bowel wall thickening, obstruction, or other acute pathology. Diffuse colonic diverticulosis is present. There is moderately excessive colonic stool content. Appendix: A normal appendix is identified. Intraperitoneal space: No free fluid, fluid collections, or pneumoperitoneum. Vasculature: The vasculature demonstrates diffuse moderate atherosclerotic calcification. Lymph nodes: No retroperitoneal, pelvic, or mesenteric adenopathy. Urinary bladder: The bladder is decompressed. Reproductive: Unremarkable as visualized. Bones/joints: No acute skeletal abnormality or aggressive osseous lesion. Soft tissues: No acute body wall soft tissue findings. IMPRESSION: 1. No acute abdominopelvic pathology, within the limits of this examination. 2. Incidental findings as above. COMMENTS: Consistent with the [employer]'s Incidental Findings Committee white paper (J Am Rg Radiol 2018): Any incidental renal lesion less than 1 cm or classified as too small to characterize, or any incidental cystic renal lesion characterized as simple-appearing, is likely benign. No follow-up imaging is recommended for these lesions per consensus recommendations based on imaging criteria.
[2021-08-08 14:01] LABS: POC Glucose,Bedside 103 (70-110)
--- NOTE | 2021-08-08 14:27 | CT_ITS ---
PROCEDURE INFORMATION: Exam: CT Head Without Contrast Exam date and time: 08/08/2021 2:49 PM Age: 55 years old Clinical indication: Altered mental status/memory loss; Confusion or disorientation; Additional info: AMS TECHNIQUE: Imaging protocol: Computed tomography of the head without contrast. Radiation optimization: All CT scans at this facility use at least one of these dose optimization techniques: automated exposure control; mA and/or kV adjustment per patient size (includes targeted exams where dose is matched to clinical indication); or iterative reconstruction. COMPARISON: No relevant prior studies available. FINDINGS: Limitations: Study is limited by motion and streak artifact. Brain: Age related brain involution is present. No acute intracranial hemorrhage, mass effect, midline shift, or brain herniation. Diffuse subcortical and periventricular white matter hypodensities are most in favor with chronic small vessel disease. Cerebral ventricles: There is ex vacuo ventriculomegaly. 7 mm hyperdense ovoid structure near the vicinity of the 3rd ventricle (image 32 series 3). Paranasal sinuses: Visualized sinuses are unremarkable. No fluid levels. Mastoid air cells: Visualized mastoid air cells are well aerated. Vasculature: Intracranial atherosclerosis is present. Bones/joints: Unremarkable. No acute fracture. Soft tissues: Unremarkable. IMPRESSION: 1. 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 2. No acute intracranial pathology is appreciated. 3. Incidental findings as above.
[2021-08-08 15:11] LABS: Coronavirus 19, PCR Not Detected (NotDetected); Influenza A, PCR Not Detected (NotDetected); Influenza B, PCR Not Detected (NotDetected)
[2021-08-08 15:19] LABS: Microscopic,Cath URINE MICROSCOPIC (MICROSCOPIC)
[2021-08-08 15:57] LABS: Basophils # 0.1 K/mm3 (0-0.2); Basophils % 1.5 % (0.1-2.0); Eosinophils % 0.7 % (0.1-12.0); Hematocrit 34.5 % (37.0-47.0); Hemoglobin 10.8 g/dL (12.2-16.2); Lymphocytes # 1.2 K/mm3 (0.7-4.5); Lymphocytes % 22.3 % (10-50); Mean Corpuscular HGB Conc 31.4 g/dL (31.8-35.4); Mean Corpuscular Hemoglobin 29.6 pg (27.0-31.2); Mean Corpuscular Volume 94.3 fl (81-99); Mean Platelet Volume 8.8 fl (7.4-10.4); Monocytes # 0.3 K/mm3 (0.1-1.0); Monocytes % 4.6 % (1.7-9.3); Neutrophils # 3.9 K/mm3 (1.8-7.8); Neutrophils % 70.8 % (37.0-80.0); Platelet Count 138 K/mm3 (142-424); Red Blood Count 3.66 M/mm3 (4.20-5.40); Red Cell Distribution Width 16.3 % (11.5-17.5); White Blood Count 5.4 K/mm3 (4.8-10.8)
[2021-08-08 15:58] LABS: Appearance,Urine/Cath CLOUDY (Clear); Blood, Urine/Cath TRACE-I (Negative); Color,Urine/Cath DK YELLOW (Yellow); Glucose,Urine/Cath (UA) Negative (Negative); Ketones,Urine/Cath TRACE (Negative); Leukocyte Esterase,Cath Negative (Negative); Nitrate,Cath Negative (Negative); PH,Urine/Cath 5.5 (5.0-8.5); Protein,Urine/Cath 1+ (Negative); Specific Gravity, Urine/Cath >= 1.030 (1.005-1.030); Urobilinogen,Cath 0.2 EU/dl (0.2)
[2021-08-08 16:00] LABS: Lactic Acid 0.9 mmol/L (0.7-2.1)
[2021-08-08 16:10] LABS: Bilirubin,Cath 1+ (Negative)
[2021-08-08 16:11] LABS: Bacteria,Urine/Cath 2+ /lpf; CA Oxalate Crystals,Ur/Cath 2+ /lpf; RBC,Urine/Cath 50-100 # /hpf (0-3); WBC,Urine/Cath 20-50 #/hpf (0-3)
[2021-08-08 16:14] LABS: INR 5.75 (0.9-1.1); Prothrombin Time 57.1 seconds (10.1-12.5); Troponin I < 0.01 ng/ml (0.00-0.034)
--- NOTE | 2021-08-08 16:20 | PC.NURSE ---
MD aware of PT and INR
[2021-08-08 17:05] LABS: Alanine Aminotransferase 24 U/L (12-78); Albumin Level 2.8 g/dl (3.5-5.0); Alkaline Phosphatase 60 U/L (38-126); Anion Gap 22.2 mEq/L (5-15); Aspartate Amino Transferase 32 U/L (14-36); Bilirubin,Total 0.6 mg/dl (0.2-1.3); Calcium 7.5 mg/dl (8.4-10.2); Chloride 110 mmol/L (98-107); Creatinine Clearance Estimated 9 mL/min (50-200); Estimated Glomerular Filt Rate 4 ml/min (>60); GFR (African American) 4 ML/MIN (>60); Globulin 2.7 g/dL (1.3-3.2); Glucose 106 mg/dl (74-100); Sodium 134 mmol/L (136-145); Total Protein,Serum 5.5 g/dl (6.3-8.2)
[2021-08-08 17:15] LABS: Blood Urea Nitrogen 106 mg/dl (7-17); Carbon Dioxide 8 mmol/L (22.0-30.0); Potassium 6.2 mmoL/L (3.5-5.1)
--- NOTE | 2021-08-08 17:30 | PC.NURSE ---
Addendum entered by Diana Amaya 08/08/21 17:31: pt in room with friend? Original Note: pt in room with pt
--- NOTE | 2021-08-08 17:54 | PC.NURSE ---
CRITICAL LABS POTASSIUM 6.2, CO2 8, BUN 106, CREAT 11.2 AWARE
--- NOTE | 2021-08-08 18:24 | PC.NURSE ---
HOUSE CALLED FOR BED
--- NOTE | 2021-08-08 19:07 | PC.NURSE ---
Report given Mckenna LYNCH
[2021-08-08 19:25] LABS: Troponin I < 0.01 ng/ml (0.00-0.034)
--- NOTE | 2021-08-08 20:08 | PC.NURSE ---
Patient removed from [facility] due to temperature of 97.9
--- NOTE | 2021-08-08 20:21 | PC.NURSE ---
patient up to floor via stretcher @ this time.
[2021-08-08 22:16] LABS: Chloride 111 mmol/L (98-107); Potassium 5.8 mmoL/L (3.5-5.1); Sodium 137 mmol/L (136-145)
[2021-08-08 22:19] LABS: Anion Gap 21.8 mEq/L (5-15); Creatinine Clearance Estimated 4 mL/min (50-200); Estimated Glomerular Filt Rate 3 ml/min (>60); GFR (African American) 4 ML/MIN (>60)
[2021-08-08 22:20] LABS: Calcium 7.2 mg/dl (8.4-10.2); Glucose 90 mg/dl (74-100)
[2021-08-08 22:22] LABS: Blood Urea Nitrogen 101 mg/dl (7-17); Carbon Dioxide 10 mmol/L (22.0-30.0)
[2021-08-09] VITALS (11 sets, daily range): BP systolic 95–159; BP diastolic 41–85; PULSE 90–113; RESP 19–21; TEMP 36.6–36.7; O2SAT 92–98; BMI 42.5
[2021-08-09 02:51] LABS: POC Glucose,Bedside 81 (70-110)
[2021-08-09 05:10] LABS: POC Glucose,Bedside 104 (70-110)
[2021-08-09 05:53] LABS: Adenovirus F 40/41, stool Not Detected (NotDetected); Astrovirus Not Detected (NotDetected); Campylobacter Not Detected (NotDetected); Clostridium Difficile A/B, PCR Not Detected (NotDetected); Cryptosporidium Not Detected (NotDetected); Cyclospora Cayetanesis Not Detected (NotDetected); Entamoeba histolytica Not Detected (NotDetected); Enteroaggregative E coli Not Detected (NotDetected); Enteropathogenic E coli Not Detected (NotDetected); Enterotoxigenic E coli Not Detected (NotDetected); Giardia lamblia Not Detected (NotDetected); Norovirus Not Detected (NotDetected); Plesimonas Shigalloides, PCR Not Detected (NotDetected); Salmonella, PCR Not Detected (NotDetected); Sapovirus Not Detected (NotDetected); Shiga-like toxin E coli Not Detected (NotDetected); Shigella Enterovasive E coli Not Detected (NotDetected); Vibrio Cholerae Not Detected (NotDetected); Vibrio, PCR Not Detected (NotDetected); Yersinia Entercolitica, PCR Not Detected (NotDetected)
--- NOTE | 2021-08-09 06:26 | PC.NURSE ---
specimen sent down for the diarrhea panel this morning
[2021-08-09 06:30] LABS: Anion Gap 20.1 mEq/L (5-15); Calcium 7.5 mg/dl (8.4-10.2); Carbon Dioxide 12 mmol/L (22.0-30.0); Chloride 114 mmol/L (98-107); Creatinine Clearance Estimated 4 mL/min (50-200); Estimated Glomerular Filt Rate 4 ml/min (>60); Glucose 94 mg/dl (74-100); Potassium 5.1 mmoL/L (3.5-5.1); Sodium 141 mmol/L (136-145)
[2021-08-09 06:36] LABS: Blood Urea Nitrogen 102 mg/dl (7-17)
[2021-08-09 06:37] LABS: GFR (African American) 5 ML/MIN (>60)
--- NOTE | 2021-08-09 07:27 | HMH.PHAVTE ---
[facility] Pharmacy VTE Monitoring - Patient Demographics Admission date: 08/08/21 Report Date: 08/09/21 Time: 07:27 Allergies/Adverse Reactions: Patient Allergies codeine [CODEINE] Allergy (Unknown, Verified 08/08/21 23:23) Nausea Height: 1.57 m Weight: 105.007 kg Patient Problems: Current Active Problems Hyperkalemia (Acute) Hypovolemic shock (Acute) Dehydration (Acute) Diarrhea (Acute) Acute renal failure (Acute) UTI (urinary tract infection) (Acute) - VTE Risk Labs: VTE Related Lab Results Hgb 10.8 g/dL (12.2-16.2) L 08/08/21 15:30 Hct 34.5 % (37.0-47.0) L 08/08/21 15:30 Plt Count 138 K/mm3 (142-424) L 08/08/21 15:30 PT 57.1 seconds (10.1-12.5) H 08/08/21 15:30 INR 5.75 (0.9-1.1) H 08/08/21 15:30 BUN 102 mg/dl (7-17) H* 08/09/21 05:17 Creatinine 10.60 mg/dl (0.52-1.04) H 08/09/21 05:17 Estimated Creat Clear 4 mL/min (50-200) 08/09/21 05:17 VTE Score: 6 VTE Risk Level: Moderate Risk - Prophylaxis VTE Prophylaxis Ordered?: Yes Types of VTE Prophylaxis: TEDS Knee High Location of Applied Device: Bilateral Lower Extremeties
[2021-08-09 07:42] LABS: Rotavirus A Detected (NotDetected)
--- NOTE | 2021-08-09 08:39 | HMH.HP ---
*Admission Date: 08/08/21 <Yari Vicente - 08/09/21 09:13> *Chief complaint: Diarrhea; altered mental status. <Yari Vicente - 08/09/21 09:13> *History of present illness: Ms. Cardona is a 55-year-old female with a history of renal issues followed by nephrology, diabetes mellitus, hypertension, hyperlipidemia, esophageal reflux, mechanical valve replacement in 2005. She also suffers with chronic pain, COPD, cervical disc disease, depression and anxiety, and peptic ulcer disease. Patient was brought to [facility] emergency room for evaluation when she had altered mental status and progressive weakness after suffering with diarrhea for several days. Darrhea started on 08/03/2021 and she also had a sore throat. She went to the urgent treatment center and was told she had strep throat and was started on Augmentin. She also received an injection of Rocephin. Her diarrhea continued. Her states she ate 2 cans of chicken noodle soup 2 days ago and retained. She has not vomited in several days. She has been able to walk to the bathroom with assistance until yesterday. Patient does say no to chest pain and shortness of breath. She also states no to abdominal pain. In the emergency room she was felt to be hypovolemic and shocky with dehydration and with a elevated potassium. On admission to the emergency room she had a temperature of 97.1. BP was low at 72/33 and 67/24. Laboratory data showed a white blood cell count of 5400 with a hemoglobin of 10.8 and hematocrit of 34.5; normal lactate was 0.9. INR was elevated at 5.75. Chemistries revealed a sodium of 134, potassium of 6.2; BUN 106 and creatinine of 11.2. She was started on a norepinephrine drip and given fluid boluses. She was also started on Rocephin and metronidazole IV. Chest x-ray revealed No acute thoracic pathology. CT of the head revealed a 7 mm hyperdense ovoid structure near the vicinity of the third ventricle favoring to be a small collateral cyst and No acute intracranial pathology. CTof the abdomen/pelvis revealed no acute abdominal pelvic pathology. This a.m. patient is able to say yes and no. She followed commands and assisted somewhat with exam. <Yari Vicente - 08/09/21 09:13> [facility] History Medical History: Reports:: Anxiety, Chronic Obstructive Pulmonary Disease (COPD), Depression, Diabetes Mellitus Type 2, Gall Bladder Disease, Gastroesophageal Reflux Disease(GERD), Heart Murmur, Hyperlipidemia, Hypertension, MRSA, Renal Disease, Renal Insufficiency, Valvular Heart Disease Denies:: Cancer, Diabetes Mellitus Type 1, Internal Pacemaker, Seizures <VicenteYari 08/09/21 09:13> *Have you ever received a pneumonia vaccine?: Yes <Yari Vicente 08/09/21 09:13> *Have you received a flu vaccine this season?: Yes <JulesYari 08/09/21 09:13> Other Medical History: Reports: Arthritis, Hypothyroidism, Other. Denies: Blood Transfusion Reaction <Yari Vicente 08/09/21 09:13> Laterality Cases: Left: Arthroscopy Knee, Bilateral: Other <VicenteYair 08/09/21 09:13> Other Surgeries: Yes: Cardiac Catheterization, Cardiac Surgery, Cholecystectomy, Colonoscopy, Mitral Valve Replacement, Other. No: Pacemaker <VicenteAmberYari 08/09/21 09:13> Amputation: No <VicenteAmberYari 08/09/21 09:13> Fractures: Yes (right foot screw) <JulesYari 08/09/21 09:13> - *Social History Smoking Status: Former smoker <Amber Vicentehy 08/09/21 09:13> Tobacco Type: cigarettes <JulesYari 08/09/21 09:13> # Packs/Day (cigarettes): 1 <Amber Vicentehy 08/09/21 09:13> #Yrs smoked (if former smoker): 0 <Amber Vicentehy 08/09/21 09:13> Alcohol Intake: never <Amber Vicentehy 08/09/21 09:13> Alcohol Intake Frequency:: other <Yari Vicente 08/09/21 09:13> Substance Use Type: denies use <Amber Vicentehy 08/09/21 09:13> *Occupational Status:: unemployed <Yari Vicente 08/09/21 09:13> Housing: house <Yari Vicente 08/09/21 09:13> Household Members: spouse
--- NOTE | 2021-08-09 11:29 | HMH.PTWOUND ---
Rehab Inpt Wound Evaluation Rehab IP Wound Evaluation Start: 08/09/21 10:39 Freq: ONCE Status: Active Protocol: Document 08/09/21 11:23 NELSY (Rec: 08/09/21 11:28 DANAISAMAR [id number]) Rehab PT Wound Assessment Patient Status Premedicated Prior to Dressing Change No Subjective Subjective Pt is unable to answer questions clearly - pt twitching and jerking - does open eyes to name sometimes wound order for low beena scale and L DFU Wound Left Lower Foot Wound Type Diabetic Foot Ulcer Is This a Chronic Wound Yes Wound Staging Unstageable Query Text:Stage I - Unbroken, red skin, no blanching. Stage II - Skin broken, superficial skin loss involving epidermis alone or also dermis. Partial loss of skin layers. Stage III - Pressure area involves epidermis, dermis and subcutaneous tissue, full thickness skin loss. Stage IV - Pressure area involves epidermis, subcutaneous tissue, bone and other supportive tissue. Full thickness skin loss with extensive destruction of underlying tissue and structures. Wound Length (cm) 2 Wound Width (cm) 2 Wound Bed Appearance Eschar,Peeling Skin Percentage Granulated (%) 0 Percentage of Eschar (Black) (%) 100 Wound Margins Description Well Defined Wound Drainage Description Purulent,Brown,Yellow Drainage Amount Scant Dressing Status Open to Air Primary Dressing Absorbant Pad Comment polymem dot Dressing Change Date 08/09/21 Plan/Recommendation Comment Podiatry consult for debridement of devitalized tissue and possible infection Eval Complexity Eval Charge Codes 99834 - High Complexity G-codes PT Current Status Other PT/OT Status PT Current Status Modifier CN-At least 100% impaired, limited or restricted PT Goal Status Other PT/OT Status PT Goal Status Modifer CN-At least 100% impaired, limited or restricted PHYSICIAN CERTIFICATION: I certify the specified therapy services for Margareth Cardona are required, authorized, and reviewed every 30 days.
--- NOTE | 2021-08-09 11:58 | HMH.PHAINT ---
MEDICATION RECONCILIATION COMPLETED ON PATIENT USING EXTERNAL FILL HISTORY FROM PHARMACY. -ISAC WILSON, MISHELD
[2021-08-09 12:07] LABS: POC Glucose,Bedside 131 (70-110)
--- NOTE | 2021-08-09 13:16 | DIET.NUTRFU ---
RD received consult for low christi score, increased risk for skin breakdown. Patient is on diabetic diet with poor po intake, only taking bites. Her renal fxn is poor with BUN at 106H and Cr 11.2H, will wait to add supplements until electrolytes improve. Dextrose is in place for hydration
[2021-08-09 14:25] LABS: Prothrombin Time 61.5 seconds (10.1-12.5)
[2021-08-09 14:26] LABS: INR 6.23 (0.9-1.1)
--- NOTE | 2021-08-09 16:17 | XR_ITS ---
PROCEDURE INFORMATION: Exam: XR Left Foot Exam date and time: 08/09/2021 4:51 PM Age: 55 years old Clinical indication: Cellulitis and other: Ulcer; Foot; Left; Additional info: Left diabetic foot ulcer, patient is not responsive and unable to move we had to hold foot, best possible pictures TECHNIQUE: Imaging protocol: XR Left foot. Views: 3 or more views. COMPARISON: CR XR FOOT LT MIN 3V 04/25/2021 7:59 PM FINDINGS: Bones/joints: Postoperative changes consistent with amputation of the distal aspect of the 1st metatarsal again demonstrated. The appearance of the findings are unchanged compared with the previous study. There are no findings at the site of previous osseous resection to suggest developing osteomyelitis. Previously demonstrated lateral subluxation of the 2nd through 5th metatarsals at the level of the tarsometatarsal articulations is unchanged. Soft tissues: There is persistent asymmetric soft tissue swelling along the plantar aspect of the foot. A faint lucency consistent with ulceration is demonstrated. IMPRESSION: 1. Focal ulceration plantar aspect of the midfoot. Findings new. 2. No evidence to suggest developing osteomyelitis. 3. Stable changes of Charcot joint involving the midfoot.
--- NOTE | 2021-08-09 16:54 | P.CONS_ITS ---
*Admission Date: 08/09/21 <Wil Ferrerher 08/09/21 18:06> *Reason for consult:: Left foot wound <[facility] 08/09/21 18:06> *History of present illness: Patient is a 55 -year-old diabetic female well- known to the podiatry team who was admitted 08/08/21 for diarrhea and altered mental status. Podiatry was consulted for management of left foot wound. Patient currently resting in bed with eyes closed, somnolent. No respiratory distress noted. Patient is at bedside, stated that patient noticed a scab to her foot few weeks ago and attempted to remove it and it turn into a wound. The left plantar foot wound has nahid wound erythema, and an eschar noted. We will obtain left foot 3 viewx-ray, esr, crp labs and treat accordingly. <[facility] 08/09[facility] 18:12> [facility] History Medical History: Reports:: Anxiety, Chronic Obstructive Pulmonary Disease (COPD), Depression, Diabetes Mellitus Type 2, Gall Bladder Disease, Gastroesophageal Reflux Disease(GERD), Heart Murmur, Hyperlipidemia, Hyp ertension, MRSA, Renal Disease, Renal Insufficiency, Valvular Heart Disease Denies:: Cancer, Diabetes Mellitus Type 1, Internal Pacemaker, Seizures <[facility] 08/09/21 18:06> *Have you ever received a pneumonia vaccine?: Yes <[facility] 08/09/21 18:06> *Have you received a flu vaccine this season?: Yes <[facility] 08/09/21 18:06> Other Medical History: Reports: Arthritis, Hypothyroidism, Other. Denies: Blood Transfusion Reaction <[facility] 08/09/21 18:06> Laterality Cases: Left: Arthroscopy Knee, Bilateral: Other <[facility] 08/09/21 18:06> Other Surgeries: Yes: Cardiac Catheterization, Cardiac Surgery, Cholecystectomy, Colonoscopy, Mitral Valve Replacement, Other. No: Pacemaker <[facility] 08/09/21 18:06> Amputation: No <[facility] 08/09/21 18:06> Fractures: Yes (right foot screw) <[facility] 08/09/21 18:06> - *Social History Smoking Status: Former smoker <[facility] 08/09/21 18:06> Tobacco Type: cigarettes <[facility] 08/09/21 18:06> # Packs/Day (cigarettes): 1 <[facility] 08/09/21 18:06> #Yrs smoked (if former smoker): 0 <[facility] 08/09/21 18:06> Alcohol Intake: never <[facility] 08/09/21 18:06> Alcohol Intake Frequency:: other <[facility] 08/09/21 18:06> Substance Use Type: denies use <[facility] 08/09/21 18:06> *Occupational Status:: unemployed <[facility] 08/09/21 18:06> Housing: house <[facility] 08/09/21 18:06> Household Members: spouse <[facility] 08/09/21 18:06> *Travel in the last 8 weeks: None <[facility] 08/09/21 18:06> - Psychiatric History Pschychiatric History:: Reports:: Anxiety, Depression <[facility] 08/09/21 18:06> Family Hx:: Cancer, Coronary Artery Disease <[facility] 08/09/21 18:06> Review of Systems - *Neurologic Reports abnormal walking, Reports confusion, Reports headache(s), Reports other (Jerking movements of arms legs and head) <[facility] 08/09/21 18:06> Meds Home Medications Medication Instructions Recorded Confirmed Type cyanocobalamin (vitamin B-12) 500 500 mcg PO DAILY tab 10/03/17 08/08/21 History mcg tablet metoprolol tartrate 25 mg tablet 25 mg PO BID 90 Days #180 tab 10/03/17 08/08/21 History multivitamin 1 tab PO DAILY 10/03/17 08/09/21 History omega-3 fatty acids 1,000 mg 2,000 mg PO BID cap 10/03/17 08/08/21 History capsule pantoprazole 40 mg tablet,delayed 40 mg PO BID 90 Days #90 12/04/17 08/09/21 History release
--- NOTE | 2021-08-09 16:54 | HMH.ORTHOCON ---
*[facility] Date: [facility]/21 [facility]06[facility] *Reason for consult:: Left foot wound <[facility] 08/09/21 18:06> *History of present illness: Patient is a 55 -year-old diabetic female well-known to the podiatry team who was admitted 08/08/21 for diarrhea and altered mental status. Podiatry was consulted for management of left foot wound. Patient currently resting in bed with eyes closed, somnolent. No respiratory distress noted. Patient is at bedside, stated that patient noticed a scab to her foot few weeks ago and attempted to remove it and it turn into a wound. The left plantar foot wound has nahid wound erythema, and an eschar noted. We will obtain left foot 3 viewx-ray, esr, crp labs and treat accordingly. <[facility] 18:12> [facility] History Medical History: Reports:: Anxiety, Chronic Obstructive Pulmonary Disease (COPD), Depression, Diabetes Mellitus Type 2, Gall Bladder Disease, Gastroesophageal Reflux Disease(GERD), Heart Murmur, Hyperlipidemia, Hypertension, MRSA, Renal Disease, Renal Insufficiency, Valvular Heart Disease Denies:: Cancer, Diabetes Mellitus Type 1, Internal Pacemaker, Seizures <[facility] 08/09/21 18:06> *Have you ever received a pneumonia vaccine?: Yes <[facility] 08/09/21 18:06> *Have you received a flu vaccine this season?: Yes <[facility] 08/09/21 18:06> Other Medical History: Reports: Arthritis, Hypothyroidism, Other. Denies: Blood Transfusion Reaction <[facility] 08/09/21 18:06> Laterality Cases: Left: Arthroscopy Knee, Bilateral: Other <[facility] 08/09/21 18:06> Other Surgeries: Yes: Cardiac Catheterization, Cardiac Surgery, Cholecystectomy, Colonoscopy, Mitral Valve Replacement, Other. No: Pacemaker <[facility] 08/09/21 18:06> Amputation: No <[facility] 08/09/21 18:06> Fractures: Yes (right foot screw) <[facility] 08/09/21 18:06> - *Social History Smoking Status: Former smoker <[facility] 08/09/21 18:06> Tobacco Type: cigarettes <[facility] 08/09/21 18:06> # Packs/Day (cigarettes): 1 <[facility] 08/09/21 18:06> #Yrs smoked (if former smoker): 0 <[facility] 08/09/21 18:06> Alcohol Intake: never <[facility] 08/09/21 18:06> Alcohol Intake Frequency:: other <[facility] 08/09/21 18:06> Substance Use Type: denies use <[facility] 08/09/21 18:06> *Occupational Status:: unemployed <[facility] 08/09/21 18:06> Housing: house <[facility] 08/09/21 18:06> Household Members: spouse <[facility] 08/09/21 18:06> *Travel in the last 8 weeks: None <[facility] 08/09/21 18:06> - Psychiatric History Pschychiatric History:: Reports:: Anxiety, Depression <[facility] 08/09/21 18:06> Family Hx:: Cancer, Coronary Artery Disease <[facility] 08/09/21 18:06> Review of Systems - *Neurologic Reports abnormal walking, Reports confusion, Reports headache(s), Reports other (Jerking movements of arms legs and head) <[facility] 08/09/21 18:06> Meds Home Medications Medication Instructions Recorded Confirmed Type cyanocobalamin (vitamin B-12) 500 500 mcg PO DAILY tab 10/03/17 08/08/21 History mcg tablet metoprolol tartrate 25 mg tablet 25 mg PO BID 90 Days #180 tab 10/03/17 08/08/21 History multivitamin 1 tab PO DAILY 10/03/17 08/09/21 History omega-3 fatty acids 1,000 mg 2,000 mg PO BID cap 10/03/17 08/08/21 History capsule pantoprazole 40 mg tablet,delayed 40 mg PO BID 90 Days #90 12/04/17 08/09/21 History release Metformin HCl [Metformin 500mg 1,000 mg PO BIDWMEAL 02/08/18 08/09/21 History Tablet] levothyroxine 50 mcg tablet 50 mcg PO DAILY #30 tab 03/06/19 08/08/21 History estradiol 1 mg tablet 1 mg PO DAILY tab 08/06/19 08/08/21 History warfarin 5 mg tablet 10 mg PO DAILY 30 Days #60 08/06/19 08/09/21 History quetiapine 100 mg tablet 200 mg PO DAILY tab 07/23/20 08/09/21 History Ator
--- NOTE | 2021-08-09 17:49 | PC.NURSE ---
Pt has had no change to mentation this shift. Pt has been a q2h turn. Pt has been incontinent of bowels this shift. Dugan cath draining cloudy, dark yellow urine. Pt has urinated close to 2.5L this shift. Pt's appetite has been poor this shift, she has been required to be fed by at bedside. Pt placed in contact enteric precautions this shift d/t testing positive for rotavirus. No other acute changes or complaints, will continue to monitor.
[2021-08-09 21:26] LABS: POC Glucose,Bedside 189 (70-110)
[2021-08-10] VITALS (12 sets, daily range): BP systolic 132–204; BP diastolic 58–102; PULSE 96–121; RESP 18–24; TEMP 36.8–38.1; O2SAT 91–120; BMI 42.5
[2021-08-10 05:27] LABS: POC Glucose,Bedside 241 (70-110)
[2021-08-10 06:54] LABS: Basophils % 0.6 % (0.1-2.0); Eosinophils % 0.7 % (0.1-12.0); Hematocrit 33.9 % (37.0-47.0); Hemoglobin 11.4 g/dL (12.2-16.2); Lymphocytes # 0.7 K/mm3 (0.7-4.5); Lymphocytes % 13.4 % (10-50); Mean Corpuscular HGB Conc 33.8 g/dL (31.8-35.4); Mean Corpuscular Hemoglobin 30.9 pg (27.0-31.2); Mean Corpuscular Volume 91.6 fl (81-99); Mean Platelet Volume 8.5 fl (7.4-10.4); Monocytes # 0.3 K/mm3 (0.1-1.0); Monocytes % 5.8 % (1.7-9.3); Neutrophils # 4.3 K/mm3 (1.8-7.8); Neutrophils % 79.5 % (37.0-80.0); Platelet Count 162 K/mm3 (142-424); Red Cell Distribution Width 16.5 % (11.5-17.5); White Blood Count 5.4 K/mm3 (4.8-10.8)
[2021-08-10 06:57] LABS: Alanine Aminotransferase 37 U/L (12-78); Albumin Level 3.1 g/dl (3.5-5.0); Albumin/Globulin Ratio 1.1 (1.1-1.8); Alkaline Phosphatase 58 U/L (38-126); Anion Gap 13.6 mEq/L (5-15); Aspartate Amino Transferase 106 U/L (14-36); Bilirubin,Total 0.5 mg/dl (0.2-1.3); Calcium 7.4 mg/dl (8.4-10.2); Carbon Dioxide 12 mmol/L (22.0-30.0); Chloride 124 mmol/L (98-107); Creatinine Clearance Estimated 8 mL/min (50-200); Estimated Glomerular Filt Rate 7 ml/min (>60); GFR (African American) 9 ML/MIN (>60); Globulin 2.9 g/dL (1.3-3.2); Glucose 238 mg/dl (74-100); Potassium 4.6 mmoL/L (3.5-5.1); Sodium 145 mmol/L (136-145)
[2021-08-10 07:01] LABS: C-Reactive Protein 63.6 mg/L (0-4)
[2021-08-10 07:02] LABS: INR 4.73 (0.9-1.1)
[2021-08-10 07:21] LABS: Prothrombin Time 47.6 seconds (10.1-12.5)
[2021-08-10 07:25] LABS: Blood Urea Nitrogen 80 mg/dl (7-17)
[2021-08-10 08:10] LABS: Erythrocyte Sedimentation Rate 124 mm/hr (0-30)
--- NOTE | 2021-08-10 08:46 | HMH.ACPN2 ---
<Yari Vicente - Last Filed: 08/10/21 08:46> Internal Medicine - PN: Subj *Date: 08/10/21 *Time: 08:46 Interval history: states with patient. He states she slept during the night. He was able to eat get her to eat a care yesterday. He he has observed no change in her condition. Patient will open her eyes but cannot answer questions. Excellent urinary output. This morning white blood cell count was 5400 with a hemoglobin of 11.4 hematocrit of 33.9. Renal function has improved with a BUN of 80 and creatinine of 6. Exam Vital signs and Labs for Last 24 Hours: Temp Pulse Resp BP Pulse Ox 100.0 F H 119 H 20 174/74 H 92 L 08/10/21 04:00 08/10/21 06:56 08/10/21 06:56 08/10/21 06:56 08/10/21 06:56 Laboratory Results - last 24 hr 08/09/21 12:00: POC Glucose 131 H 08/09/21 12:01: PT 61.5 H, INR 6.23 H 08/09/21 21:02: POC Glucose 189 H 08/10/21 05:17: POC Glucose 241 H 08/10/21 05:22: PT 47.6 H, INR 4.73 H 08/10/21 05:22: ESR 124 H 08/10/21 05:22: C-Reactive Protein 63.6 H 08/10/21 05:22: WBC 5.4, RBC 3.70 L, Hgb 11.4 L, Hct 33.9 L, MCV 91.6, MCH 30.9, MCHC 33.8, RDW 16.5, Plt Count 162, MPV 8.5, Neut % (Auto) 79.5, Lymph % (Auto) 13.4, Dawson % (Auto) 5.8, Eos % (Auto) 0.7, Baso % (Auto) 0.6, Neut # (Auto) 4.3, Lymph # (Auto) 0.7, Dawson # (Auto) 0.3, Eos # (Auto) 0.0, Baso # (Auto) 0.0 08/10/21 05:22: Sodium 145, Potassium 4.6, Chloride 124 H, Carbon Dioxide 12 L, Anion Gap 13.6, BUN 80 H, Creatinine 6.00 H D, Estimated Creat Clear 8, Estimated GFR 7 L*, Est GFR ( Amer) 9 L* D, Glucose 238 H, Calcium 7.4 L, Total Bilirubin 0.5, AST 106 H D, ALT 37 D, Alkaline Phosphatase 58, Total Protein 6.0 L, Albumin 3.1 L, Globulin 2.9, Albumin/Globulin Ratio 1.1 I & O for Last 24 hours: Intake & Output 08/07/21 08/08/21 08/09/21 08/10/21 11:59 11:59 11:59 11:59 Intake Total 1565.892 / 7797.288 8347 / 1705 Output Total 675 / 675 5400 / 5400 Balance 890.892 / 890.892 -3695 / -3695 Weight 220 lb 231 lb 8 oz 231 lb 1.6 oz Microbiology Reports for the Last 24 Hours: Microbiology 08/08/21 15:07 Urine,Catheterized Urine Culture - Preliminary NO GROWTH AFTER 24 HOURS - Constitutional no acute distress - *Routine Respiratory Exam Present: CTA bilaterally Comments: Snoring respiratory. Brief periods of apnea. - *Routine Cardiovascular Exam Present: RRR - *Routine Abdominal Exam Present: soft, normoactive bowel sounds, obese. Absent: tenderness - *Routine Extremities Exam Absent: edema - *Routine Skin Exam Comments: Left foot wound with clean dry dressing with Donavon. - *Routine Neurological Exam Present: altered mental status, moving all extremities. Absent: alert Periodic frequent jerking movements of arms legs and trunk. Assessment and Plan (1) Acute renal failure Status: Acute Qualifiers: Acute renal failure type: unspecified Qualified Code(s): N17.9 - Acute kidney failure, unspecified Category: Medical Code(s): N17.9 - Acute kidney failure, unspecified (2) Hypovolemic shock Status: Acute Category: Medical Code(s): R57.1 - Hypovolemic shock (3) Dehydration Status: Acute Category: Medical Code(s): E86.0 - Dehydration (4) Rotavirus enteritis Status: Acute Category: Medical Code(s): A08.0 - Rotaviral enteritis (5) Diarrhea Status: Acute Qualifiers: Diarrhea type: presumed infectious Qualified Code(s): R19.7 - Diarrhea, unspecified Category: Medical Code(s): R19.7 - Diarrhea, unspecified (6) Hyperkalemia Status: Acute Category: Medical Code(s): E87.5 - Hyperkalemia (7) UTI (urinary tract infection) Status: Acute Qualifiers: Urinary tract infection type: site unspecified Hematuria presence: with hematuria Qualified Code(s): N39.0 - Urinary tract infection, site not specified; R31.9 - Hematuria, unspecified Category: Medical Code(s): N39.0 - Urinary trac
--- NOTE | 2021-08-10 09:28 | XR_ITS ---
FINAL REPORT CLINICAL HISTORY: new fever COMPARISON: 08/08/2021 FINDINGS: There is mild cardiomegaly. The patient is status post median sternotomy. There are patchy bilateral airspace infiltrates which have increased since previous, probably due to acute pneumonia. There is no pneumothorax. IMPRESSION: Acute pneumonia. Reviewed, Interpreted and Dictated by Luis Sylvester MD Transcribed by Yari Valdez Authenticated by Luis Sylvester MD on 08/10/2021 11:26:07 AM [facility]
--- NOTE | 2021-08-10 10:06 | HMH.ORTHPN ---
Subjective Date: 08/10/21 Time: 09:00 Principal diagnosis: Left foot plantar wound Interval history: Patient lying in bed. Eyes closed constantly moving, somnolent, and does not respond to verbal stimuli. Spouse remain at bedside. Lab results and left foot x-ray results discussed with pt . Left foot plantar wound debrided with a curette without incident. PN: Obj Ex Vital signs: Temp Pulse Resp BP Pulse Ox 100.0 F H 119 H 20 174/74 H 92 L 08/10/21 04:00 08/10/21 06:56 08/10/21 06:56 08/10/21 06:56 08/10/21 06:56 - Constitutional no acute distress - Routine HEENT Exam Head: Present: normocephalic Eye: Present: other (pt lying in bed with eyes closed.) ENT: Present: mucous membranes moist - Routine Neck Exam Present: supple (constantly moving head) - Routine Respiratory Exam Absent: respiratory distress - Routine Cardiovascular Exam Present: RRR - Routine Abdominal Exam Present: soft - Routine Extremities Exam Present: pulses intact, tenderness (pedal puses diminished,) - Detailed Lower Extremity Exam Foot/Toes: Left erythema (left plantar foot), Left tenderness, Left wound (left plantar cuboid), Bilateral hammer toe Bottom foot image: 1 - Patient left foot plantar wound sharply excisionally debrided with a curette through skin/subq. No drainage noted. Elke wound erythema and edama noted. Post debridement measured 1.5 x 0.5 x 0.2 cm. Wound base 100 % granular. - Urinary Catheter Management Dugan Cath placed during this visit: no Progress Note: A&P (1) Acute renal failure Status: Acute (2) Hypovolemic shock Status: Acute (3) Dehydration Status: Acute (4) Rotavirus enteritis Status: Acute (5) Diarrhea Status: Acute (6) Hyperkalemia Status: Acute (7) UTI (urinary tract infection) Status: Acute (8) Strep throat Status: Acute (9) HLD (hyperlipidemia) Status: Chronic (10) HTN (hypertension) Status: Chronic (11) Obesity, Class II, BMI 35-39.9 Status: Chronic (12) PAD (peripheral artery disease) Start date: 08/10/21 Start time: 09:00 Status: Acute (13) Type 2 diabetes mellitus, with long-term current use of insulin Start date: 08/10/21 Start time: 09:00 Status: Acute (14) CKD (chronic kidney disease) Status: Acute (15) Callus of foot Start date: 08/10/21 Start time: 09:00 Status: Acute (16) Diabetic foot Start date: 08/10/21 Start time: 09:00 Status: Acute (17) Osteoarthritis of feet, bilateral Start date: 08/10/21 Start time: 09:00 Status: Chronic (18) Nail dystrophy Start date: 08/10/21 Start time: 09:00 Status: Chronic (19) Acquired hammertoes of both feet Start date: 08/10/21 Start time: 09:00 Status: Chronic (20) Open wound of left foot Start date: 08/10/21 Start time: 09:00 Status: Chronic Assessment and Plan for All Diagnoses:: Laboratory Tests 08/10/21 08/10/21 08/10/21 05:22 05:22 05:22 WBC 5.4 ESR 124 H BUN Creatinine Estimated GFR Glucose C-Reactive Protein 63.6 H 08/10/21 05:22 WBC ESR BUN 80 H Creatinine 6.00 H D Estimated GFR 7 L* Glucose 238 H C-Reactive Protein Patient seen at bedside by and Yoli Ferrer aprn. -Wound sharply debrided (see skin section). -Dressind applied: soak betadine 4x4, dry 4x4, kirlex, and haley wrap. -Culture from left foot wound pending. -Nursing to do daily betadine dressing change. -Labs esr, crp and left foot x-ray results discussed with pt . -Patient does not require surgical intervention at this time, We will review left foot wound culture and treat accordingly. -Thank you for allowing our service to assist in patient's plan of care at this time.
--- NOTE | 2021-08-10 10:22 | DIET.NUTRFU ---
Patient continues to be confused, present to try to encourage and assist with meals. Continues to have very minimal intake at meals. She is receiving dextrose IV to provide hydration. Renal labs have improved with BUN at 80 (102) and Cr 6.0 (11.2) with glucose elevated at 238. Wound care debrided her L foot planter wound today, increased protein needs to promote healing at not being met based on meal intake. Will continue to monitor meal and supplement intake
[2021-08-10 12:09] LABS: POC Glucose,Bedside 196 (70-110)
--- NOTE | 2021-08-10 17:48 | PC.NURSE ---
propofol stopped at 0745 this am in preparation for SBT fentanyl turned down to 25mcg at 0745 for SBT bp was 141/73, levo stopped at 0800 insulin drip stopped per Dr Toro v/o at 1020 fentanyl drip increased to 50mcg at 1700 r/t agitation/restlessness.
[2021-08-11] VITALS (13 sets, daily range): BP systolic 134–185; BP diastolic 71–116; PULSE 83–108; RESP 18–28; TEMP 37.7–38.7; O2SAT 92–96; BMI 41.6
[2021-08-11 06:42] LABS: POC Glucose,Bedside 273 (70-110)
[2021-08-11 07:24] LABS: Anion Gap 12.5 mEq/L (5-15); Blood Urea Nitrogen 60 mg/dl (7-17); Calcium 7.6 mg/dl (8.4-10.2); Carbon Dioxide 15 mmol/L (22.0-30.0); Creatinine Clearance Estimated 14 mL/min (50-200); Estimated Glomerular Filt Rate 14 ml/min (>60); GFR (African American) 17 ML/MIN (>60); Glucose 250 mg/dl (74-100); Potassium 4.5 mmoL/L (3.5-5.1)
[2021-08-11 07:30] LABS: Basophils % 0.7 % (0.1-2.0); Eosinophils % 0.1 % (0.1-12.0); Hematocrit 30.8 % (37.0-47.0); Lymphocytes % 18.2 % (10-50); Mean Corpuscular HGB Conc 32.5 g/dL (31.8-35.4); Mean Corpuscular Hemoglobin 30.2 pg (27.0-31.2); Mean Corpuscular Volume 93.1 fl (81-99); Mean Platelet Volume 8.9 fl (7.4-10.4); Monocytes # 0.3 K/mm3 (0.1-1.0); Monocytes % 6.1 % (1.7-9.3); Neutrophils # 4.2 K/mm3 (1.8-7.8); Neutrophils % 74.9 % (37.0-80.0); Platelet Count 158 K/mm3 (142-424); Red Blood Count 3.31 M/mm3 (4.20-5.40); Red Cell Distribution Width 16.6 % (11.5-17.5); White Blood Count 5.5 K/mm3 (4.8-10.8)
[2021-08-11 07:34] LABS: INR 2.85 (0.9-1.1); Prothrombin Time 29.8 seconds (10.1-12.5)
[2021-08-11 07:40] LABS: Chloride 131 mmol/L (98-107); Sodium 154 mmol/L (136-145)
--- NOTE | 2021-08-11 08:17 | HMH.ACPN2 ---
<Yari Vicente - Last Filed: 08/11/21 08:17> Internal Medicine - PN: Subj *Date: 08/11/21 *Time: 08:17 Interval history: is at bedside. Patient cannot tell me how she is doing. He states that she knows him sometimes. Patient has had good urinary output. She has been febrile.Chest x-ray showed acute pneumonia CBC this morning shows a white blood cell count of 5500 with a hemoglobin of 10 hematocrit of 30.8. Blood chemistries: Sodium 154 potassium 4.5. Has improved just 60 with a creatinine of 3.3. Exam Vital signs and Labs for Last 24 Hours: Temp Pulse Resp BP Pulse Ox 100.8 F H 105 H 20 140/74 92 L 08/11/21 04:00 08/11/21 06:34 08/11/21 04:00 08/11/21 04:00 08/11/21 04:00 Laboratory Results - last 24 hr 08/10/21 12:00: POC Glucose 196 H 08/11/21 06:25: POC Glucose 273 H 08/11/21 06:48: WBC 5.5, RBC 3.31 L, Hgb 10.0 L, Hct 30.8 L, MCV 93.1, MCH 30.2, MCHC 32.5, RDW 16.6, Plt Count 158, MPV 8.9, Neut % (Auto) 74.9, Lymph % (Auto) 18.2, [place] % (Auto) 6.1, Eos % (Auto) 0.1, Baso % (Auto) 0.7, Neut # (Auto) 4.2, Lymph # (Auto) 1.0, [place] # (Auto) 0.3, Eos # (Auto) 0.0, Baso # (Auto) 0.0 08/11/21 06:48: Sodium 154 H*, Potassium 4.5, Chloride 131 H, Carbon Dioxide 15 L, Anion Gap 12.5, BUN 60 H, Creatinine 3.30 H D, Estimated Creat Clear 14, Estimated GFR 14 L*, Est GFR ( Amer) 17 L* D, Glucose 250 H, Calcium 7.6 L I & O for Last 24 hours: Intake & Output 08/08/21 08/09/21 08/10/21 08/11/21 11:59 11:59 11:59 11:59 Intake Total 1565.892 / 9952.841 7157 / 1705 1536 / 1536 Output Total 675 / 675 5400 / 5400 2800 / 2800 Balance 890.892 / 890.892 -3695 / -3695 -1264 / -1264 Weight 220 lb 231 lb 8 oz 231 lb 1.6 oz 226 lb 5 oz Microbiology Reports for the Last 24 Hours: Microbiology 08/09/21 16:42 Foot,Left Gram Stain - Final 08/08/21 15:30 Blood Blood Culture - Preliminary NO GROWTH AFTER 48 HOURS 08/08/21 15:30 Blood Blood Culture - Preliminary NO GROWTH AFTER 48 HOURS 08/08/21 15:07 Urine,Catheterized Urine Culture - Final NO GROWTH AFTER 48 HOURS Assessment and Plan (1) Acute renal failure Status: Acute Qualifiers: Acute renal failure type: unspecified Qualified Code(s): N17.9 - Acute kidney failure, unspecified Category: Medical Code(s): N17.9 - Acute kidney failure, unspecified (2) Hypovolemic shock Status: Acute Category: Medical Code(s): R57.1 - Hypovolemic shock (3) Dehydration Status: Acute Category: Medical Code(s): E86.0 - Dehydration (4) Rotavirus enteritis Status: Acute Category: Medical Code(s): A08.0 - Rotaviral enteritis (5) Diarrhea Status: Acute Qualifiers: Diarrhea type: presumed infectious Qualified Code(s): R19.7 - Diarrhea, unspecified Category: Medical Code(s): R19.7 - Diarrhea, unspecified (6) Hyperkalemia Status: Acute Category: Medical Code(s): E87.5 - Hyperkalemia (7) UTI (urinary tract infection) Status: Acute Qualifiers: Urinary tract infection type: site unspecified Hematuria presence: with hematuria Qualified Code(s): N39.0 - Urinary tract infection, site not specified; R31.9 - Hematuria, unspecified Category: Medical Code(s): N39.0 - Urinary tract infection, site not specified (8) HLD (hyperlipidemia) Status: Chronic Qualifiers: Hyperlipidemia type: other hyperlipidemia Qualified Code(s): E78.49 - Other hyperlipidemia Category: Medical Code(s): E78.5 - Hyperlipidemia, unspecified (9) HTN (hypertension) Status: Chronic Qualifiers: Hypertension type: essential hypertension Category: Medical Code(s): I10 - Essential (primary) hypertension (10) Obesity, Class II, BMI 35-39.9 Status: Chronic Category: Medical Code(s): E66.9 - Obesity, unspecified (11) PAD (peripheral artery disease) Start date: 08/10/21 Start time: 09:00
--- NOTE | 2021-08-11 08:32 | XR_ITS ---
FINAL REPORT CLINICAL HISTORY: f/u pneumonia COMPARISON: August 10, 2021 FINDINGS: The heart is mildly enlarged. There are multiple sternotomy wires. The mediastinum is normal. There is pulmonary vascular congestion. There is no focal infiltrate or edema. There are no pleural effusions. There is no pneumothorax. There is no osseous abnormality. IMPRESSION: Mild cardiomegaly with pulmonary vascular congestion. Reviewed, Interpreted and Dictated by Luis Sylvester MD Transcribed by Irving Ortiz Authenticated by Luis Sylvester MD on 08/11/2021 10:03:[address] [facility]
--- NOTE | 2021-08-11 09:05 | PC.NURSE ---
RESPIRATORY CARE NOTE: NT SXN PT AT THIS TIME. GOT A BLOODY SAMPLE. SPUTUM SAMPLE SENT TO LAB.
[2021-08-11 11:30] LABS: Magnesium 1.1 mg/dl (1.6-2.3)
--- NOTE | 2021-08-11 12:44 | PC.NURSE ---
Addendum entered by Rachell Baumann RN 08/11/21 20:28: DRESSING CHANGED TO THE LEFT FOOT. Original Note: PT IS RESTING IN BED. FAMILY WAS IN THE ROOM THIS MORNING. PT HAS BEEN AWAKE WITH EYES OPEN AND WILL GIVE EYE CONTACT BUT WILL NOT ANSWER ANY QUESTIONS. PT CONTINUES WITH TREMORS. PT BECOMES VERY AGITATED WHEN STAFF REPOSITIONS OR DOES ORAL CARE. DRESSING NOTED TO THE LEFT FOOT. MEDICATED PER MAR WITH TYLENOL SUPPOSITORY FOR FEVER. PT IS STILL NOT EATING OR DRINKING. LUNG SOUNDS HAVE SCATTERED RHONCHI/WHEEZES. ABDOMEN SOFT/NON TENDER WITH ACTIVE BOWEL SOUNDS. WILL CONTINUE TO MONITOR.
[2021-08-11 13:17] LABS: POC Glucose,Bedside 295 (70-110)
[2021-08-11 13:17] LABS: POC Glucose,Bedside 214 (70-110)
--- NOTE | 2021-08-11 14:21 | DIET.NUTRFU ---
Spoke to nursing today, patient is unable/refusing meals and all oral intake at this. She is also refusing oral care. at bedside and is also unable to assist with any meal/fluid intake. Dextrose restarted, labs today Na 154H (145), K 4.5 (4.6), BUN 60 (80), Cr 3.3 (6) and glucose 250 (238).
[2021-08-11 17:36] LABS: POC Glucose,Bedside 244 (70-110)
[2021-08-11 20:34] LABS: POC Glucose,Bedside 231 (70-110)
[2021-08-12] VITALS (8 sets, daily range): BP systolic 100–175; BP diastolic 56–86; PULSE 79–116; RESP 18–28; TEMP 36.8–38.1; O2SAT 92–99; BMI 42.2
[2021-08-12 06:49] LABS: INR 2.32 (0.9-1.1); Prothrombin Time 24.6 seconds (10.1-12.5)
[2021-08-12 06:50] LABS: Blood Urea Nitrogen 50 mg/dl (7-17); Calcium 7.7 mg/dl (8.4-10.2); Carbon Dioxide 20 mmol/L (22.0-30.0); Creatinine Clearance Estimated 19 mL/min (50-200); Estimated Glomerular Filt Rate 20 ml/min (>60); GFR (African American) 24 ML/MIN (>60); Glucose 220 mg/dl (74-100); Magnesium 1.4 mg/dl (1.6-2.3)
[2021-08-12 07:39] LABS: Sodium 155 mmol/L (136-145)
[2021-08-12 07:40] LABS: Chloride 129 mmol/L (98-107)
--- NOTE | 2021-08-12 08:33 | HMH.ACPN2 ---
<Dennise Quiroga - Last Filed: 08/12/21 08:33> Internal Medicine - PN: Subj *Date: 08/12/21 *Time: 08:33 Interval history: Patient's states that she has been awake and can say her name, but otherwise cannot communicate. She has continued to thrash around in the bed off and on. She cannot eat or drink. He thinks her urine is darkening. Exam Vital signs and Labs for Last 24 Hours: Temp Pulse Resp BP Pulse Ox 100.6 F H 93 H 18 162/77 H 94 L 08/12/21 06:05 08/12/21 04:00 08/12/21 04:00 08/12/21 04:00 08/12/21 04:00 Laboratory Results - last 24 hr 08/10/21 20:22: POC Glucose 214 H 08/11/21 06:48: PT 29.8 H, INR 2.85 H 08/11/21 06:48: Magnesium 1.1 L 08/11/21 11:30: POC Glucose 295 H 08/11/21 17:10: POC Glucose 244 H 08/11/21 20:21: POC Glucose 231 H 08/12/21 05:43: PT 24.6 H, INR 2.32 H 08/12/21 05:43: Sodium 155 H*, Potassium 4.0, Chloride 129 H, Carbon Dioxide 20 L, Anion Gap 10.0, BUN 50 H, Creatinine 2.50 H D, Estimated Creat Clear 19, Estimated GFR 20 L, Est GFR ( Amer) 24 L D, Glucose 220 H, Calcium 7.7 L, Magnesium 1.4 L D I & O for Last 24 hours: Intake & Output 08/09/21 08/10/21 08/11/21 08/12/21 11:59 11:59 11:59 11:59 Intake Total 1565.892 / 9437.451 1707 / 1705 1536 / 1536 Output Total 675 / 675 5400 / 5400 3050 / 3050 2650 / 2650 Balance 890.892 / 890.892 -3695 / -3695 -1514 / -1514 -2650 / -2650 Weight 231 lb 8 oz 231 lb 1.6 oz 226 lb 5 oz 229 lb 6.4 oz Microbiology Reports for the Last 24 Hours: Microbiology 08/11/21 09:02 Sputum - Nasotracheal Suction Gram Stain - Final 08/09/21 16:42 Foot,Left Gram Stain - Final 08/09/21 16:42 Foot,Left Wound Culture - Preliminary Gram Positive Cocci - Constitutional Comments: Able to open eyes but cannot follow commands - *Routine Respiratory Exam Present: CTA bilaterally - *Routine Cardiovascular Exam Present: RRR - *Routine Abdominal Exam Present: soft, normoactive bowel sounds. Absent: tenderness - *Routine Extremities Exam Present: edema (Minimal bilateral lower extremity edema). Absent: cyanosis, clubbing - *Routine Skin Exam Present: warm. Absent: rash - *Routine Neurological Exam Present: altered mental status, tremors (Frequent jerking movements of the upper body) Assessment and Plan (1) Acute renal failure Status: Acute Qualifiers: Acute renal failure type: unspecified Qualified Code(s): N17.9 - Acute kidney failure, unspecified Category: Medical Code(s): N17.9 - Acute kidney failure, unspecified (2) Hypovolemic shock Status: Acute Category: Medical Code(s): R57.1 - Hypovolemic shock (3) Dehydration Status: Acute Category: Medical Code(s): E86.0 - Dehydration (4) Rotavirus enteritis Status: Acute Category: Medical Code(s): A08.0 - Rotaviral enteritis (5) Diarrhea Status: Acute Qualifiers: Diarrhea type: presumed infectious Qualified Code(s): R19.7 - Diarrhea, unspecified Category: Medical Code(s): R19.7 - Diarrhea, unspecified (6) Hyperkalemia Status: Acute Category: Medical Code(s): E87.5 - Hyperkalemia (7) UTI (urinary tract infection) Status: Acute Qualifiers: Urinary tract infection type: site unspecified Hematuria presence: with hematuria Qualified Code(s): N39.0 - Urinary tract infection, site not specified; R31.9 - Hematuria, unspecified Category: Medical Code(s): N39.0 - Urinary tract infection, site not specified (8) HLD (hyperlipidemia) Status: Chronic Qualifiers: Hyperlipidemia type: other hyperlipidemia Qualified Code(s): E78.49 - Other hyperlipidemia Category: Medical Code(s): E78.5 - Hyperlipidemia, unspecified (9) HTN (hypertension) Status: Chronic Qualifiers: Hypertension type: essential hypertension Category: Medical Code(s): I10 - Essential (primary) hypertension (10) Obesity, Class II, BMI 35-39.9 Status: Ch
[2021-08-12 12:02] LABS: POC Glucose,Bedside 232 (70-110)
[2021-08-12 12:02] LABS: POC Glucose,Bedside 194 (70-110)
--- NOTE | 2021-08-12 12:05 | PC.NURSE ---
rt note: Pt would not allow me to give her 12 o'clock treatment. Fought the pulse ox and mask.
[2021-08-12 15:05] LABS: Microscopic, Urine URINE MICROSCOPIC (MICROSCOPIC)
--- NOTE | 2021-08-12 15:35 | PC.NURSE ---
PT IS RESTING IN BED WITH FAMILY AT BEDSIDE. PT WILL OCCASIONALLY ANSWER SIMPLE YES OR NO QUESTIONS AND HAS STATED HER NAME THIS SHIFT BUT IS STILL NOT FOLLOWING COMMANDS. PT CONTINUES TO BE VERY RESTLESS IN THE BED. UNABLE TO GET PT TO DRINK AT LUNCH TIME. PT HAS MITTS ON DUE TO REMOVING IV'S. NEW IV ACCESS NOTED TO THE LFA. LUNG SOUNDS DIMINISHED WITH SCATTERED RHONCHI. ABDOMEN SOFT/NON TENDER WITH ACTIVE BOWEL SOUNDS. WILL CONTINUE TO MONITOR.
[2021-08-12 18:39] LABS: Appearance,Urine CLEAR (Clear); Bilirubin,Urine Negative (Negative); Blood, Urine 3+ (Negative); Color,Urine YELLOW (Yellow); Glucose,Urine (UA) Negative (Negative); Ketones,Urine Negative (Negative); Leukocyte Esterase,Urine Negative (Negative); Nitrate,Urine Negative (Negative); Protein,Urine 1+ (Negative); Specific Gravity, Urine 1.025 (1.005-1.030); Urobilinogen,Urine 0.2 EU/dl (0.2)
[2021-08-12 19:30] LABS: Bacteria,Urine 1+ /lpf; RBC,Urine TNTC #/hpf (0-3)
[2021-08-12 20:34] LABS: POC Glucose,Bedside 202 (70-110)
[2021-08-12 21:02] LABS: POC Glucose,Bedside 307 (70-110)
[2021-08-13] VITALS: BP 150/77; PULSE 90; PULSE 92; RESP 20; TEMP 38.7; O2SAT 92
[2021-08-13 04:00] VITALS: BP 150/72; PULSE 90; PULSE 95; RESP 18; TEMP 37.3; O2SAT 92
[2021-08-13 05:12] VITALS: BMI 41.8
[2021-08-13 06:23] LABS: POC Glucose,Bedside 217 (70-110)
[2021-08-13 06:33] LABS: Basophils % 0.5 % (0.1-2.0); Eosinophils # 0.1 K/mm3 (0.0-0.4); Eosinophils % 1.6 % (0.1-12.0); Hematocrit 29.3 % (37.0-47.0); Hemoglobin 9.3 g/dL (12.2-16.2); Mean Corpuscular HGB Conc 31.8 g/dL (31.8-35.4); Mean Corpuscular Volume 94.4 fl (81-99); Mean Platelet Volume 9.3 fl (7.4-10.4); Monocytes # 0.3 K/mm3 (0.1-1.0); Monocytes % 4.1 % (1.7-9.3); Neutrophils % 78.7 % (37.0-80.0); Platelet Count 166 K/mm3 (142-424); Red Blood Count 3.11 M/mm3 (4.20-5.40); Red Cell Distribution Width 16.8 % (11.5-17.5); White Blood Count 6.3 K/mm3 (4.8-10.8)
[2021-08-13 06:52] LABS: Anion Gap 11.8 mEq/L (5-15); Blood Urea Nitrogen 43 mg/dl (7-17); Carbon Dioxide 19 mmol/L (22.0-30.0); Chloride 125 mmol/L (98-107); Creatinine Clearance Estimated 24 mL/min (50-200); Estimated Glomerular Filt Rate 26 ml/min (>60); GFR (African American) 31 ML/MIN (>60); Glucose 225 mg/dl (74-100); Magnesium 1.4 mg/dl (1.6-2.3); Potassium 3.8 mmoL/L (3.5-5.1)
[2021-08-13 07:12] LABS: Sodium 152 mmol/L (136-145)
[2021-08-13 08:00] VITALS: BP 137/70; PULSE 90; PULSE 95; RESP 22; TEMP 37.1; O2SAT 91; O2SAT 93
--- NOTE | 2021-08-13 08:24 | HMH.ACPN2 ---
<Dennise Quiroga - Last Filed: 08/13/21 08:24> Internal Medicine - PN: Subj *Date: 08/13/21 *Time: 08:24 Interval history: Patient did wake up and say a few words this morning. Her tremor is less. She still shakes her head off and on. Her states she was able to drink a small amount of fluid. She has not been able to eat. She continues with diarrhea. Exam Vital signs and Labs for Last 24 Hours: Temp Pulse Resp BP Pulse Ox 99.1 F 95 H 18 150/72 H 92 L 08/13/21 04:00 08/13/21 04:00 08/13/21 04:00 08/13/21 04:00 08/13/21 04:00 Laboratory Results - last 24 hr 08/12/21 05:32: POC Glucose 232 H 08/12/21 11:04: POC Glucose 194 H 08/12/21 14:50: Urine Color Yellow, Urine Appearance Clear, Urine pH 6.0, Ur Specific [place] 1.025, Urine Protein 1+, Urine Glucose (UA) Negative, Urine Ketones Negative, Urine Blood 3+, Urine Nitrate Negative, Urine Bilirubin Negative, Urine Urobilinogen 0.2, Ur Leukocyte Esterase Negative, Urine RBC Tntc, Urine WBC 10-20, Ur Squamous Epith Cells 3-5, Urine Bacteria 1+ 08/12/21 15:42: POC Glucose 202 H 08/12/21 20:32: POC Glucose 307 H* 08/13/21 05:12: POC Glucose 217 H 08/13/21 05:55: WBC 6.3, RBC 3.11 L, Hgb 9.3 L, Hct 29.3 L, MCV 94.4, MCH 30.0, MCHC 31.8, RDW 16.8, Plt Count 166, MPV 9.3, Neut % (Auto) 78.7, Lymph % (Auto) 15.0, [place] % (Auto) 4.1, Eos % (Auto) 1.6, Baso % (Auto) 0.5, Neut # (Auto) 5.0, Lymph # (Auto) 1.0, [place] # (Auto) 0.3, Eos # (Auto) 0.1, Baso # (Auto) 0.0 08/13/21 05:55: Sodium 152 H*, Potassium 3.8, Chloride 125 H, Carbon Dioxide 19 L, Anion Gap 11.8, BUN 43 H, Creatinine 2.00 H, Estimated Creat Clear 24, Estimated GFR 26 L, Est GFR ( Amer) 31 L D, Glucose 225 H, Calcium 8.0 L, Magnesium 1.4 L I & O for Last 24 hours: Intake & Output 08/10/21 08/11/21 08/12/21 08/13/21 11:59 11:59 11:59 11:59 Intake Total 1705 / 1705 1536 / 1536 60 / 60 2203 / 2203 Output Total 5400 / 5400 3050 / 3050 2650 / 2650 1200 / 1200 Balance -3695 / -3695 -1514 / -1514 -2590 / -2590 1003 / 1003 Weight 231 lb 1.6 oz 226 lb 5 oz 229 lb 6.4 oz 227 lb 2 oz Microbiology Reports for the Last 24 Hours: Microbiology 08/09/21 16:42 Foot,Left Gram Stain - Final 08/09/21 16:42 Foot,Left Wound Culture - Final Staphylococcus aureus - Constitutional agitated - *Routine Respiratory Exam Present: CTA bilaterally - *Routine Cardiovascular Exam Present: RRR - *Routine Abdominal Exam Present: soft, normoactive bowel sounds. Absent: tenderness - *Routine Extremities Exam Absent: cyanosis, clubbing, edema - *Routine Skin Exam Present: warm. Absent: rash - *Routine Neurological Exam Present: altered mental status, tremors Assessment and Plan (1) Acute renal failure Status: Acute Qualifiers: Acute renal failure type: unspecified Qualified Code(s): N17.9 - Acute kidney failure, unspecified Category: Medical Code(s): N17.9 - Acute kidney failure, unspecified (2) Hypovolemic shock Status: Acute Category: Medical Code(s): R57.1 - Hypovolemic shock (3) Dehydration Status: Acute Category: Medical Code(s): E86.0 - Dehydration (4) Rotavirus enteritis Status: Acute Category: Medical Code(s): A08.0 - Rotaviral enteritis (5) Diarrhea Status: Acute Qualifiers: Diarrhea type: presumed infectious Qualified Code(s): R19.7 - Diarrhea, unspecified Category: Medical Code(s): R19.7 - Diarrhea, unspecified (6) Hyperkalemia Status: Acute Category: Medical Code(s): E87.5 - Hyperkalemia (7) UTI (urinary tract infection) Status: Acute Qualifiers: Urinary tract infection type: site unspecified Hematuria presence: with hematuria Qualified Code(s): N39.0 - Urinary tract infection, site not specified; R31.9 - Hematuria, unspecified Category: Medical Code(s): N39.0 - Urinary tract infection, site not specified (8) HLD (hyperlipidemia) Status: Chronic Qualifie
--- NOTE | 2021-08-13 09:31 | HMH.ORTHPN ---
Subjective Date: 08/13/21 <Yoli Ferrer - 08/13/21 10:17> Time: 08:30 <Yoli Ferrer - 08/13/21 10:17> Principal diagnosis: Left foot plantar wound <Yoli Ferrer - 08/13/21 10:17> Interval history: Patient is lying in bed with eyes open, awake but non-verbal. Patient stated that she has been saying few words this morning. No acute distress noted. Left foot plantar wound debrided with a currette without incident. Left foot wound culture results MRSA discussed with pt spouse and reported to PCP team to manage with antibiotics while inpatient. <Yoli Ferrer - 08/13/21 10:17> PN: Obj Ex Vital signs: Temp Pulse Resp BP Pulse Ox 98.7 F 95 H 22 137/70 91 L 08/13/21 08:00 08/13/21 08:00 08/13/21 08:00 08/13/21 08:00 08/13/21 08:00 <Jamison Hightowerie - 08/13/21 10:34> Temp Pulse Resp BP Pulse Ox 99.1 F 95 H 18 150/72 H 92 L 08/13/21 04:00 08/13/21 04:00 08/13/21 04:00 08/13/21 04:00 08/13/21 04:00 <Yoli Ferrer - 08/13/21 10:17> - Constitutional no acute distress <Yoli Ferrer 08/13/21 10:17> - Routine HEENT Exam Head: Present: normocephalic <Yoli Ferrer 08/13/21 10:17> Eye: Present: EOMI <Yoli Ferrer 08/13/21 10:17> ENT: Present: mucous membranes moist <Yoli Ferrer 08/13/21 10:17> - Routine Neck Exam Present: supple <Yoli Ferrer 08/13/21 10:17> - Routine Respiratory Exam Absent: respiratory distress <Yoli Ferrer 08/13/21 10:17> - Routine Cardiovascular Exam Present: RRR <Yoli Ferrer 08/13/21 10:17> - Routine Abdominal Exam Present: soft <Yoli Ferrer - 08/13/21 10:17> - Routine Extremities Exam Present: pulses intact, tenderness (to left plantar wound site) <Yoli Ferrer - 08/13/21 10:17> - Detailed Lower Extremity Exam Foot/Toes: Left swelling, Left tenderness, Left wound (plantar wound), Bilateral hammer toe <Yoli Ferrer - 08/13/21 10:17> Bottom foot image: 1 - 1 - Patient left foot plantar wound sharply excisionally debrided with a curette through skin/subq. No drainage noted. Elke wound erythema and edama improved. Post debridement measured 1.0 x 0.5 x 0.2 cm. Wound base 100 % granular. <Yoli Ferrer - 08/13/21 10:17> - Urinary Catheter Management Dugan Cath placed during this visit: no <KatjaZulema robbins - 08/13/21 10:34> no <Yoli Ferrer - 08/13/21 10:17> Progress Note: A&P (1) Acute renal failure Status: Acute (2) Hypovolemic shock Status: Acute (3) Dehydration Status: Acute (4) Rotavirus enteritis Status: Acute (5) Diarrhea Status: Acute (6) Hyperkalemia Status: Acute (7) UTI (urinary tract infection) Status: Acute (8) HLD (hyperlipidemia) Status: Chronic (9) HTN (hypertension) Status: Chronic (10) Obesity, Class II, BMI 35-39.9 Status: Chronic (11) PAD (peripheral artery disease) Status: Acute (12) Type 2 diabetes mellitus, with long-term current use of insulin Start date: 08/13/21 Start time: 08:30 Status: Acute (13) CKD (chronic kidney disease) Status: Acute (14) Tremor Status: Acute (15) Hyponatremia Status: Acute (16) Hypomagnesemia Status: Acute (17) Uremic encephalopathy Status: Acute (18) Diabetic foot Start date: 08/13/21 Start time: 08:30 Status: Acute (19) Osteoarthritis of feet, bilateral Start date: 08/13/21 Start time: 08:30 Status: Chronic (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
--- NOTE | 2021-08-13 09:50 | DIET.NUTRFU ---
Spoke to today to review any food preferences and availability. He reports she normally likes everything. Nursing reports she is more alert today, said a few words to the nursing aid. But still only drank 120ml, no food intake. She has glucerna ordered with her trays to help met nutritional needs if consumed. Labs: Na 155H, K 3.8, BUN 43H and Cr 2.0 with glucose at 225H. Dextrose IV, insulin and protonix in place
--- NOTE | 2021-08-13 10:40 | HMH.PHACONS ---
- Pharmacy Consult Date: 08/13/21 Time: 10:40 Referring provider: DR. VÁZQUEZ Reason for Consult:: VANCOMYCIN DOSING Allergies and ADEs:: Allergies Allergy/AdvReac Type Severity Reaction Status Date / Time codeine [CODEINE] Allergy Unknown Nausea Verified 08/08/21 23:23 Home Medications:: Home Medications Medication Instructions Recorded Confirmed Type cyanocobalamin (vitamin B-12) 500 500 mcg PO DAILY tab 10/03/17 08/08/21 History mcg tablet metoprolol tartrate 25 mg tablet 25 mg PO BID 90 Days #180 tab 10/03/17 08/08/21 History multivitamin 1 tab PO DAILY 10/03/17 08/09/21 History omega-3 fatty acids 1,000 mg 2,000 mg PO BID cap 10/03/17 08/08/21 History capsule pantoprazole 40 mg tablet,delayed 40 mg PO BID 90 Days #90 12/04/17 08/09/21 History release Metformin HCl [Metformin 500mg 1,000 mg PO BIDWMEAL 02/08/18 08/09/21 History Tablet] levothyroxine 50 mcg tablet 50 mcg PO DAILY #30 tab 03/06/19 08/08/21 History estradiol 1 mg tablet 1 mg PO DAILY tab 08/06/19 08/08/21 History warfarin 5 mg tablet 10 mg PO DAILY 30 Days #60 08/06/19 08/09/21 History quetiapine 100 mg tablet 200 mg PO DAILY tab 07/23/20 08/09/21 History Atorvastatin Calcium [Lipitor 40mg 40 mg PO HS 08/08/21 08/08/21 History Tab] Calcium Carb, Citrate/Vit D3 600 mg PO DAILY 08/08/21 08/08/21 History [Calcium + D3 ER Tablet] Escitalopram Oxalate 20 mg PO DAILY 08/08/21 08/08/21 History Glucosamine Sulfate Dipot Chlr 1,000 mg PO DAILY 08/08/21 08/08/21 History [Glucosamine] Medroxyprogesterone Acetate 5 mg PO DIRECTED 08/08/21 08/09/21 History Amoxicillin/Potassium Clav 1 tab PO BID 08/09/21 08/09/21 History [Amox-Clav 875-125 mg Tablet] Empagliflozin [Jardiance] 25 mg PO DAILY 08/09/21 08/09/21 History Glimepiride [Amaryl 2mg tablet] 4 mg PO DAILY 08/09/21 08/09/21 History Glimepiride [Amaryl] 2 mg PO HS 08/09/21 08/09/21 History Insulin Glargine,Hum.rec.anlog 50 units SQ DAILY 08/09/21 08/09/21 History [[place] Quirozostar] Pregabalin [Lyrica 200mg Cap] 200 mg PO TID 08/09/21 08/09/21 History buPROPion HCL [Bupropion Xl] 300 mg PO DAILY 08/09/21 08/09/21 History lisinopriL [Lisinopril] 10 mg PO DAILY 08/09/21 08/09/21 History metroNIDAZOLE [metroNIDAZOLE 500mg 500 mg PO TID 08/09/21 08/09/21 History Tablet] ondansetron HCL [Ondansetron 4mg 4 mg PO TIDP PRN 08/09/21 08/09/21 History tab*] Height: 1.57 m Weight: 103.022 kg Laboratory Results:: Laboratory Results - last 24 hr 08/12/21 05:32: POC Glucose 232 H 08/12/21 11:04: POC Glucose 194 H 08/12/21 14:50: Urine Color Yellow, Urine Appearance Clear, Urine pH 6.0, Ur Specific [place] 1.025, Urine Protein 1+, Urine Glucose (UA) Negative, Urine Ketones Negative, Urine Blood 3+, Urine Nitrate Negative, Urine Bilirubin Negative, Urine Urobilinogen 0.2, Ur Leukocyte Esterase Negative, Urine RBC Tntc, Urine WBC 10-20, Ur Squamous Epith Cells 3-5, Urine Bacteria 1+ 08/12/21 15:42: POC Glucose 202 H 08/12/21 20:32: POC Glucose 307 H* 08/13/21 05:12: POC Glucose 217 H 08/13/21 05:55: WBC 6.3, RBC 3.11 L, Hgb 9.3 L, Hct 29.3 L, MCV 94.4, MCH 30.0, MCHC 31.8, RDW 16.8, Plt Count 166, MPV 9.3, Neut % (Auto) 78.7, Lymph % (Auto) 15.0, [place] % (Auto) 4.1, Eos % (Auto) 1.6, Baso % (Auto) 0.5, Neut # (Auto) 5.0, Lymph # (Auto) 1.0, [place] # (Auto) 0.3, Eos # (Auto) 0.1, Baso # (Auto) 0.0 08/13/21 05:55: Sodium 152 H*, Potassium 3.8, Chloride 125 H, Carbon Dioxide 19 L, Anion Gap 11.8, BUN 43 H, Creatinine 2.00 H, Estimated Creat Clear 24, Estimated GFR 26 L, Est GFR ( Amer) 31 L D, Glucose 225 H, Calcium 8.0 L, Magnesium 1.4 L Medical History: Reports:: Anxiety, Chronic Obstructive Pulmonary Disease (COPD), Depression, Diabetes Mellitus Type 2, Gall Bladder Disease, Gastroesophageal Reflux Disease(GERD), Heart Murmur, Hyperlipidemia, Hypertension, MRSA, Renal Disease, Renal Insufficiency, Valvular Heart Disease Denies:: Cancer, Diabetes Mellitus Type 1, Internal
[2021-08-13 11:48] LABS: POC Glucose,Bedside 235 (70-110)
[2021-08-13 12:00] VITALS: BP 191/89; PULSE 107; PULSE 90; RESP 16; TEMP 37.6; O2SAT 93
--- NOTE | 2021-08-13 13:50 | HMH.ACPN ---
Internal Medicine - PN: Subj *Date: 08/13/21 *Time: 13:50 Exam Vital signs and Labs for Last 24 Hours: Temp Pulse Resp BP Pulse Ox 98.7 F 95 H 22 137/70 91 L 08/13/21 08:00 08/13/21 08:00 08/13/21 08:00 08/13/21 08:00 08/13/21 08:00 Laboratory Results - last 24 hr 08/12/21 14:50: Urine Color Yellow, Urine Appearance Clear, Urine pH 6.0, Ur Specific [place] 1.025, Urine Protein 1+, Urine Glucose (UA) Negative, Urine Ketones Negative, Urine Blood 3+, Urine Nitrate Negative, Urine Bilirubin Negative, Urine Urobilinogen 0.2, Ur Leukocyte Esterase Negative, Urine RBC Tntc, Urine WBC 10-20, Ur Squamous Epith Cells 3-5, Urine Bacteria 1+ 08/12/21 15:42: POC Glucose 202 H 08/12/21 20:32: POC Glucose 307 H* 08/13/21 05:12: POC Glucose 217 H 08/13/21 05:55: WBC 6.3, RBC 3.11 L, Hgb 9.3 L, Hct 29.3 L, MCV 94.4, MCH 30.0, MCHC 31.8, RDW 16.8, Plt Count 166, MPV 9.3, Neut % (Auto) 78.7, Lymph % (Auto) 15.0, [place] % (Auto) 4.1, Eos % (Auto) 1.6, Baso % (Auto) 0.5, Neut # (Auto) 5.0, Lymph # (Auto) 1.0, [place] # (Auto) 0.3, Eos # (Auto) 0.1, Baso # (Auto) 0.0 08/13/21 05:55: Sodium 152 H*, Potassium 3.8, Chloride 125 H, Carbon Dioxide 19 L, Anion Gap 11.8, BUN 43 H, Creatinine 2.00 H, Estimated Creat Clear 24, Estimated GFR 26 L, Est GFR ( Amer) 31 L D, Glucose 225 H, Calcium 8.0 L, Magnesium 1.4 L 08/13/21 11:22: POC Glucose 235 H I & O for Last 24 hours: Intake & Output 08/10/21 08/11/21 08/12/2125/22 23:59 23:59 23:59 23:59 Intake Total 3241 / 3241 2263 / 2263 120 / 120 Output Total 4000 / 5000 2950 / 3900 1950 / 2150 450 / 450 Balance -759 / -1759 -2950 / -3900 313 / 113 -330 / -330 Weight 104.825 kg 102.654 kg 104.054 kg 103.022 kg Microbiology Reports for the Last 24 Hours: Microbiology 08/09/21 16:42 Foot,Left Gram Stain - Final 08/09/21 16:42 Foot,Left Wound Culture - Final Staphylococcus aureus Assessment and Plan (1) Acute renal failure Status: Acute Qualifiers: Acute renal failure type: unspecified Qualified Code(s): N17.9 - Acute kidney failure, unspecified Category: Medical Code(s): N17.9 - Acute kidney failure, unspecified (2) Hypovolemic shock Status: Acute Category: Medical Code(s): R57.1 - Hypovolemic shock (3) Dehydration Status: Acute Category: Medical Code(s): E86.0 - Dehydration (4) Rotavirus enteritis Status: Acute Category: Medical Code(s): A08.0 - Rotaviral enteritis (5) Diarrhea Status: Acute Qualifiers: Diarrhea type: presumed infectious Qualified Code(s): R19.7 - Diarrhea, unspecified Category: Medical Code(s): R19.7 - Diarrhea, unspecified (6) Hyperkalemia Status: Acute Category: Medical Code(s): E87.5 - Hyperkalemia (7) UTI (urinary tract infection) Status: Acute Qualifiers: Urinary tract infection type: site unspecified Hematuria presence: with hematuria Qualified Code(s): N39.0 - Urinary tract infection, site not specified; R31.9 - Hematuria, unspecified Category: Medical Code(s): N39.0 - Urinary tract infection, site not specified (8) HLD (hyperlipidemia) Status: Chronic Qualifiers: Hyperlipidemia type: other hyperlipidemia Qualified Code(s): E78.49 - Other hyperlipidemia Category: Medical Code(s): E78.5 - Hyperlipidemia, unspecified (9) HTN (hypertension) Status: Chronic Qualifiers: Hypertension type: essential hypertension Category: Medical Code(s): I10 - Essential (primary) hypertension (10) Obesity, Class II, BMI 35-39.9 Status: Chronic Category: Medical Code(s): E66.9 - Obesity, unspecified (11) PAD (peripheral artery disease) Start date: 08/10/21 Start time: 09:00 Status: Acute Category: Medical Code(s): I73.9 - Peripheral vascular disease, unspecified (12) Type 2 diabetes mellitus, with long-term current use of insulin Start date: 08/13/21 Start time: 08:30 Status: Acute Cat
--- NOTE | 2021-08-13 14:57 | PC.NURSE ---
09:00 Late-Entry - Pt. unable to say name. Pt. repeats the words yes, and no. but unable to say them when asking her a question. Pt. pushing against staff when trying to clean up and resistive to medications, medications given crushed and in pudding. Pt. tolerated fair and took 1 spoonful of pudding with crushed medicine in it. remains in room will continue to monitor.
[2021-08-13 16:00] VITALS: BP 183/96; PULSE 90; PULSE 95; RESP 18; TEMP 38.4; O2SAT 95
--- NOTE | 2021-08-13 19:57 | PC.NURSE ---
17:00 Late Entry - Routine reassessment completes. Pt. remains laying in bed fighting. Pt. can nod head to answer questions and will say yes or no. Lungs CTA, Heart rate at RRR. Bowels sounds present. ABD soft and non tender. L foot remains with dressing in place. dressing noted to be changed last night. Buttocks noted to be red and excoriated from watery stools. Frequent chucks changes completed throughout day with watery liquid, unable to collect stool specimen due to watery stools being absorbed into chucks. Pt. has vomited twice today, noted to be greenish brown liquid with chunks in it. Pt. tolerated cleaning up and bed changes fair today. Pt. resting in bed, denies needs, will continue to monitor.
[2021-08-13 20:00] VITALS: BP 173/82; PULSE 90; PULSE 91; RESP 24; TEMP 37.7; O2SAT 91; O2SAT 95
[2021-08-13 20:13] LABS: POC Glucose,Bedside 303 (70-110)
[2021-08-13 21:47] LABS: Adenovirus F 40/41, stool Not Detected (NotDetected); Astrovirus Not Detected (NotDetected); Campylobacter Not Detected (NotDetected); Clostridium Difficile A/B, PCR Not Detected (NotDetected); Cryptosporidium Not Detected (NotDetected); Cyclospora Cayetanesis Not Detected (NotDetected); Entamoeba histolytica Not Detected (NotDetected); Enteroaggregative E coli Not Detected (NotDetected); Enteropathogenic E coli Not Detected (NotDetected); Enterotoxigenic E coli Not Detected (NotDetected); Giardia lamblia Not Detected (NotDetected); Norovirus Not Detected (NotDetected); Plesimonas Shigalloides, PCR Not Detected (NotDetected); Salmonella, PCR Not Detected (NotDetected); Sapovirus Not Detected (NotDetected); Shiga-like toxin E coli Not Detected (NotDetected); Shigella Enterovasive E coli Not Detected (NotDetected); Vibrio Cholerae Not Detected (NotDetected); Vibrio, PCR Not Detected (NotDetected); Yersinia Entercolitica, PCR Not Detected (NotDetected)
[2021-08-13 23:35] LABS: Rotavirus A Detected (NotDetected)
[2021-08-14] VITALS (10 sets, daily range): BP systolic 165–188; BP diastolic 76–92; PULSE 80–110; RESP 16–20; TEMP 36.6–37.7; O2SAT 91–100; BMI 92.0; BMI 41.8; BMI 41.6
[2021-08-14 01:21] LABS: POC Glucose,Bedside 229 (70-110)
[2021-08-14 07:17] LABS: MANUAL DIFFERENTIAL MANUAL DIFFERENTIAL (MANUAL DIFF)
[2021-08-14 07:28] LABS: Basophils % 0.3 % (0.1-2.0); Eosinophils # 0.1 K/mm3 (0.0-0.4); Eosinophils % 0.6 % (0.1-12.0); Hematocrit 32.5 % (37.0-47.0); Hemoglobin 9.8 g/dL (12.2-16.2); Lymphocytes # 0.7 K/mm3 (0.7-4.5); Lymphocytes % 9.3 % (10-50); Mean Corpuscular HGB Conc 30.2 g/dL (31.8-35.4); Mean Corpuscular Hemoglobin 29.2 pg (27.0-31.2); Mean Corpuscular Volume 96.8 fl (81-99); Mean Platelet Volume 9.2 fl (7.4-10.4); Monocytes # 0.7 K/mm3 (0.1-1.0); Monocytes % 8.5 % (1.7-9.3); Neutrophils # 6.3 K/mm3 (1.8-7.8); Neutrophils % 81.3 % (37.0-80.0); Platelet Count 198 K/mm3 (142-424); Red Blood Count 3.36 M/mm3 (4.20-5.40); White Blood Count 7.7 K/mm3 (4.8-10.8)
[2021-08-14 07:39] LABS: Anion Gap 10.8 mEq/L (5-15); Blood Urea Nitrogen 40 mg/dl (7-17); Calcium 8.3 mg/dl (8.4-10.2); Carbon Dioxide 22 mmol/L (22.0-30.0); Chloride 123 mmol/L (98-107); Creatinine Clearance Estimated 30 mL/min (50-200); Estimated Glomerular Filt Rate 33 ml/min (>60); GFR (African American) 40 ML/MIN (>60); Glucose 250 mg/dl (74-100); Potassium 3.8 mmoL/L (3.5-5.1)
[2021-08-14 08:00] LABS: Sodium 152 mmol/L (136-145)
--- NOTE | 2021-08-14 08:48 | HMH.ACPN2 ---
Internal Medicine - PN: Subj *Date: 08/14/21 *Time: 08:49 Interval history: Appears to have rested well through the night. Still sleeping this morning but arouses easily. She will answer a few yes/no questions but does not engage in conversation. She is still refusing to eat. She is drinking some. She took some Glucerna yesterday but vomited. Continues with diarrhea. Exam Vital signs and Labs for Last 24 Hours: Temp Pulse Resp BP Pulse Ox 99.9 F H 102 H 18 169/92 H 91 L 08/14/21 08:00 08/14/21 08:00 08/14/21 08:00 08/14/21 08:00 08/14/21 08:00 Laboratory Results - last 24 hr 08/13/21 11:22: POC Glucose 235 H 08/13/21 17:16: POC Glucose 303 H* 08/13/21 21:08: POC Glucose 229 H 08/13/21 21:30: Stl Aeromonas (PCR) Not detected, Stl C. cayetanensis PCR Not detected, Stool Rotavirus (PCR) Detected A, Stl Adenov F 40/41 PCR Not detected, Stool Astrovirus (PCR) Not detected, Stool Campylobacter PCR Not detected, Stl C.difficile Tox PCR Not detected, Stool Cryptosporidium PCR Not detected, Stl E.coli Shiga Tox PCR Not detected, Stool E coli O157 PCR Not detected, Stl Enterotoxigenic E PCR Not detected, Stool EPEC (PCR) Not detected, Stool EAEC (PCR) Not detected, Stl E. histolytica PCR Not detected, Stool Giardia Lamblia PCR Not detected, Stool Salmonella PCR Not detected, Stool Sapovirus (PCR) Not detected, Stl P. shigelloides PCR Not detected, Stl Shigella/EIEC PCR Not detected, St Y.enterocolitica PCR Not detected, Stool Vibrio (PCR) Not detected, Stl Vibrio cholerae PCR Not detected, Stl Norovirus GI/GII PCR Not detected 08/14/21 07:06: WBC 7.7, RBC 3.36 L, Hgb 9.8 L, Hct 32.5 L, MCV 96.8, MCH 29.2, MCHC 30.2 L, RDW 17.0, Plt Count 198, MPV 9.2, Neut % (Auto) 81.3 H, Lymph % (Auto) 9.3 L, [place] % (Auto) 8.5, Eos % (Auto) 0.6, Baso % (Auto) 0.3, Neut # (Auto) 6.3, Lymph # (Auto) 0.7, [place] # (Auto) 0.7, Eos # (Auto) 0.1, Baso # (Auto) 0.0 08/14/21 07:06: Sodium 152 H*, Potassium 3.8, Chloride 123 H, Carbon Dioxide 22, Anion Gap 10.8, BUN 40 H, Creatinine 1.60 H, Estimated Creat Clear 30, Estimated GFR 33 L, Est GFR ( Amer) 40 L D, Glucose 250 H, Calcium 8.3 L I & O for Last 24 hours: Intake & Output 08/11/21 08/12/21 08/13/21 08/14/21 11:59 11:59 11:59 11:59 Intake Total 1536 / 1536 60 / 60 2323 / 2323 300 / 300 Output Total 3050 / 3050 2650 / 2650 1450 / 1450 1400 / 1400 Balance -1514 / -1514 -2590 / -2590 873 / 873 -1100 / -1100 Weight 226 lb 5 oz 229 lb 6.4 oz 227 lb 2 oz 500 lb 0.134 oz Microbiology Reports for the Last 24 Hours: Microbiology 08/08/21 15:30 Blood Blood Culture - Final NO GROWTH AFTER 5 DAYS 08/08/21 15:30 Blood Blood Culture - Final NO GROWTH AFTER 5 DAYS 08/12/21 14:50 Urine,Clean Catch Urine Culture - Preliminary NO GROWTH AFTER 24 HOURS Narrative: Color slightly pale. No respiratory distress. Chest with upper airway rhonchi. No wheezes. Heart is regular. Abdomen is obese, soft, nondistended. Questionable mild diffuse tenderness. Extremities show no edema. Assessment and Plan (1) Acute renal failure Status: Acute Qualifiers: Acute renal failure type: unspecified Qualified Code(s): N17.9 - Acute kidney failure, unspecified Category: Medical Code(s): N17.9 - Acute kidney failure, unspecified (2) Hypovolemic shock Status: Acute Category: Medical Code(s): R57.1 - Hypovolemic shock (3) Dehydration Status: Acute Category: Medical Code(s): E86.0 - Dehydration (4) Rotavirus enteritis Status: Acute Category: Medical Code(s): A08.0 - Rotaviral enteritis (5) Diarrhea Status: Acute Qualifiers: Diarrhea type: presumed infectious Qualified Code(s): R19.7 - Diarrhea, unspecified Category: Medical Code(s): R19.7 - Diarrhea, unspecified (6) Hyperkalemia Status: Acute Category: Medical Code(s): E87.5 - Hyperkalemia (7)
[2021-08-14 10:49] LABS: Lymphocytes % 14 % (10-50); Monocytes % 4 % (2-9); Neutrophils % 82 % (42-76); Nucleated Red Blood Cells 1; Total Cells Counted 100
[2021-08-14 10:50] LABS: Hypochromasia 2+; Platelet Estimate Normal
[2021-08-14 11:58] LABS: POC Glucose,Bedside 252 (70-110)
[2021-08-14 11:58] LABS: POC Glucose,Bedside 300 (70-110)
[2021-08-14 16:23] LABS: POC Glucose,Bedside 298 (70-110)
--- NOTE | 2021-08-14 17:53 | PC.NURSE ---
Addendum entered by Avila Sheridan RN 08/14/21 17:54: Dsg changed to R foot this shift. Original Note: Dr. Ocasio made aware of sodium of 152 this am, IVF's increased per mar.
[2021-08-15] VITALS (13 sets, daily range): BP systolic 148–181; BP diastolic 76–91; PULSE 69–111; RESP 16–18; TEMP 36.4–36.8; O2SAT 91–95; BMI 41.6
[2021-08-15 00:39] LABS: POC Glucose,Bedside 321 (70-110)
[2021-08-15 07:28] LABS: MANUAL DIFFERENTIAL MANUAL DIFFERENTIAL (MANUAL DIFF)
[2021-08-15 07:34] LABS: Basophils % 0.4 % (0.1-2.0); Eosinophils # 0.1 K/mm3 (0.0-0.4); Eosinophils % 1.1 % (0.1-12.0); Hematocrit 34.7 % (37.0-47.0); Hemoglobin 10.7 g/dL (12.2-16.2); Lymphocytes # 0.9 K/mm3 (0.7-4.5); Mean Corpuscular HGB Conc 30.8 g/dL (31.8-35.4); Mean Corpuscular Volume 97.2 fl (81-99); Mean Platelet Volume 9.1 fl (7.4-10.4); Monocytes # 0.3 K/mm3 (0.1-1.0); Monocytes % 2.7 % (1.7-9.3); Neutrophils # 9.7 K/mm3 (1.8-7.8); Neutrophils % 87.7 % (37.0-80.0); Platelet Count 182 K/mm3 (142-424); Red Blood Count 3.57 M/mm3 (4.20-5.40); Red Cell Distribution Width 16.8 % (11.5-17.5); White Blood Count 11.1 K/mm3 (4.8-10.8)
[2021-08-15 07:43] LABS: Anion Gap 8.1 mEq/L (5-15); Blood Urea Nitrogen 34 mg/dl (7-17); Calcium 7.8 mg/dl (8.4-10.2); Carbon Dioxide 22 mmol/L (22.0-30.0); Chloride 113 mmol/L (98-107); Creatinine Clearance Estimated 36 mL/min (50-200); Estimated Glomerular Filt Rate 42 ml/min (>60); GFR (African American) 51 ML/MIN (>60); Glucose 306 mg/dl (74-100); Potassium 3.1 mmoL/L (3.5-5.1); Sodium 140 mmol/L (136-145)
[2021-08-15 07:45] LABS: INR 1.32 (0.9-1.1); Prothrombin Time 14.6 seconds (10.1-12.5)
--- NOTE | 2021-08-15 08:20 | PC.NURSE ---
Notified Dr. Ocasio of mag level of 1.0 verbally.
--- NOTE | 2021-08-15 09:05 | HMH.ACPN2 ---
Internal Medicine - PN: Subj *Date: 08/15/21 *Time: 09:05 Interval history: In the past 24 hours she has been more alert and talking more. She is drowsy this morning but is easily aroused and answers yes/no questions appropriately. She recognizes her and calls him by name but still has confusion. At one point yesterday she sat up on the side of the bed and pulled out her her IVs and disrobed. She is taking p.o. medications better. She has taken a few bites of food. Exam Vital signs and Labs for Last 24 Hours: Temp Pulse Resp BP Pulse Ox 98.3 F 86 17 148/90 H 95 08/15/21 08:00 08/15/21 08:00 08/15/21 08:00 08/15/21 08:00 08/15/21 08:00 Laboratory Results - last 24 hr 08/14/21 06:09: POC Glucose 252 H 08/14/21 07:06: Total Counted 100, Neutrophils % (Manual) 82 H, Lymphocytes % (Manual) 14, Monocytes % (Manual) 4, Nucleated RBCs 1, Platelet Estimate Normal, Hypochromasia 2+ 08/14/21 11:30: POC Glucose 300 H 08/14/21 15:43: POC Glucose 298 H 08/14/21 21:04: POC Glucose 321 H* 08/15/21 07:09: WBC 11.1 H D, RBC 3.57 L, Hgb 10.7 L, Hct 34.7 L, MCV 97.2, MCH 30.0, MCHC 30.8 L, RDW 16.8, Plt Count 182, MPV 9.1, Neut % (Auto) 87.7 H, Lymph % (Auto) 8.0 L, [place] % (Auto) 2.7, Eos % (Auto) 1.1, Baso % (Auto) 0.4, Neut # (Auto) 9.7 H, Lymph # (Auto) 0.9, [place] # (Auto) 0.3, Eos # (Auto) 0.1, Baso # (Auto) 0.0 08/15/21 07:09: Sodium 140, Potassium 3.1 L, Chloride 113 H, Carbon Dioxide 22, Anion Gap 8.1, BUN 34 H, Creatinine 1.30 H, Estimated Creat Clear 36, Estimated GFR 42 L, Est GFR ( Amer) 51 L D, Glucose 306 H, Calcium 7.8 L, Magnesium 1.0 L D 08/15/21 07:09: PT 14.6 H, INR 1.32 H I & O for Last 24 hours: Intake & Output 08/12/21 08/13/21 08/14/21 08/15/21 11:59 11:59 11:59 11:59 Intake Total 60 / 60 2323 / 2323 300 / 300 1800 / 1800 Output Total 2650 / 2650 1450 / 1450 1950 / 1950 1974 / 1974 Balance -2590 / -2590 873 / 873 -1650 / -1650 -175 / -175 Weight 229 lb 6.4 oz 227 lb 2 oz 228 lb 8 oz 226 lb 3.2 oz Microbiology Reports for the Last 24 Hours: Microbiology 08/11/21 09:02 Sputum - Nasotracheal Suction Gram Stain - Final 08/11/21 09:02 Sputum - Nasotracheal Suction Sputum Culture - Preliminary 08/12/21 14:50 Urine,Clean Catch Urine Culture - Final NO GROWTH AFTER 48 HOURS Narrative: She is sleeping but arouses easily. No respiratory distress. Color is pale. Lungs are clear anteriorly. Heart is regular. Abdomen is soft and nondistended with no apparent tenderness. Extremities no edema. Assessment and Plan (1) Acute renal failure Status: Acute Qualifiers: Acute renal failure type: unspecified Qualified Code(s): N17.9 - Acute kidney failure, unspecified Category: Medical Code(s): N17.9 - Acute kidney failure, unspecified (2) Hypovolemic shock Status: Acute Category: Medical Code(s): R57.1 - Hypovolemic shock (3) Dehydration Status: Acute Category: Medical Code(s): E86.0 - Dehydration (4) Rotavirus enteritis Status: Acute Category: Medical Code(s): A08.0 - Rotaviral enteritis (5) Diarrhea Status: Acute Qualifiers: Diarrhea type: presumed infectious Qualified Code(s): R19.7 - Diarrhea, unspecified Category: Medical Code(s): R19.7 - Diarrhea, unspecified (6) Hyperkalemia Status: Acute Category: Medical Code(s): E87.5 - Hyperkalemia (7) UTI (urinary tract infection) Status: Acute Qualifiers: Urinary tract infection type: site unspecified Hematuria presence: with hematuria Qualified Code(s): N39.0 - Urinary tract infection, site not specified; R31.9 - Hematuria, unspecified Category: Medical Code(s): N39.0 - Urinary tract infection, site not specified (8) HLD (hyperlipidemia) Status: Chronic Qualifiers: Hyperlipidemia type: other hyperlipidemia Qualified Code(s): E78.49 - Other hyperlipidemia Category: Medical Code(s): E78.5 - Hyperlipidem
[2021-08-15 11:30] LABS: POC Glucose,Bedside 281 (70-110)
[2021-08-15 14:29] LABS: Anisocytosis 1+; Eosinophils % 1 % (0-3); Hypochromasia 2+; Lymphocytes % 8 % (10-50); Monocytes % 4 % (2-9); Neutrophils % 87 % (42-76); Platelet Estimate Normal; Total Cells Counted 100
[2021-08-15 15:08] LABS: Osmolality, Urine 641 mOsmol/kg (.)
--- NOTE | 2021-08-15 16:00 | PC.NURSE ---
Courtesy round done pt sleeping Ice water given trash taken out
[2021-08-15 18:29] LABS: POC Glucose,Bedside 238 (70-110)
[2021-08-15 18:29] LABS: POC Glucose,Bedside 293 (70-110)
--- NOTE | 2021-08-15 18:52 | PC.NURSE ---
Pt has been more alert and oriented this shift. remains at bedside. Appetite slightly improved. Boost breeze offered to pt.
[2021-08-15 22:41] LABS: POC Glucose,Bedside 221 (70-110)
[2021-08-16] VITALS (7 sets, daily range): BP systolic 148–188; BP diastolic 54–86; PULSE 60–81; RESP 16–18; TEMP 36.2–36.8; O2SAT 93–99; BMI 42.5
[2021-08-16 05:58] LABS: POC Glucose,Bedside 171 (70-110)
[2021-08-16 07:01] LABS: MANUAL DIFFERENTIAL MANUAL DIFFERENTIAL (MANUAL DIFF)
[2021-08-16 07:14] LABS: INR 1.71 (0.9-1.1); Prothrombin Time 18.6 seconds (10.1-12.5)
[2021-08-16 07:16] LABS: Basophils # 0.1 K/mm3 (0-0.2); Basophils % 0.6 % (0.1-2.0); Eosinophils # 0.3 K/mm3 (0.0-0.4); Eosinophils % 3.1 % (0.1-12.0); Hematocrit 31.4 % (37.0-47.0); Lymphocytes # 1.1 K/mm3 (0.7-4.5); Mean Corpuscular HGB Conc 31.9 g/dL (31.8-35.4); Mean Corpuscular Hemoglobin 29.3 pg (27.0-31.2); Mean Corpuscular Volume 91.6 fl (81-99); Mean Platelet Volume 8.6 fl (7.4-10.4); Monocytes # 0.4 K/mm3 (0.1-1.0); Monocytes % 4.1 % (1.7-9.3); Neutrophils # 6.6 K/mm3 (1.8-7.8); Neutrophils % 79.1 % (37.0-80.0); Platelet Count 171 K/mm3 (142-424); Red Blood Count 3.42 M/mm3 (4.20-5.40); Red Cell Distribution Width 16.7 % (11.5-17.5); White Blood Count 8.4 K/mm3 (4.8-10.8)
[2021-08-16 07:28] LABS: Blood Urea Nitrogen 31 mg/dl (7-17); Calcium 7.8 mg/dl (8.4-10.2); Carbon Dioxide 24 mmol/L (22.0-30.0); Chloride 110 mmol/L (98-107); Creatinine Clearance Estimated 34 mL/min (50-200); Estimated Glomerular Filt Rate 39 ml/min (>60); GFR (African American) 47 ML/MIN (>60); Glucose 174 mg/dl (74-100); Sodium 135 mmol/L (136-145)
--- NOTE | 2021-08-16 08:05 | PC.NURSE ---
Late entry - critical K+ passed on to RN in report. Pastor Anthony RN to report to .
--- NOTE | 2021-08-16 08:12 | HMH.ACPN2 ---
<Yari Vicente - Last Filed: 08/16/21 08:12> Internal Medicine - PN: Subj *Date: 08/16/21 *Time: 08:12 Interval history: Patient states she is feeling better. She denies pain. She denies shortness of breath. She does have some nausea. She does not feel like eating at present. She was out of bed in a chair yesterday. She did assist with exam today. Laboratory data shows a sodium of 135 and a potassium of 3. Renal function is back to her normal with a BUN of 31 and creatinine 1.4. Exam Vital signs and Labs for Last 24 Hours: Temp Pulse Resp BP Pulse Ox 97.8 F 70 17 148/54 H 93 L 08/16/21 04:00 08/16/21 06:38 08/16/21 04:00 08/16/21 04:00 08/16/21 04:00 Laboratory Results - last 24 hr 08/12/21 14:50: Urine Osmolality 641 08/15/21 06:31: POC Glucose 293 H 08/15/21 07:09: Total Counted 100, Neutrophils % (Manual) 87 H, Lymphocytes % (Manual) 8 L, Monocytes % (Manual) 4, Eosinophils % (Manual) 1, Platelet Estimate Normal, Hypochromasia 2+, Anisocytosis 1+ 08/15/21 11:08: POC Glucose 281 H 08/15/21 16:42: POC Glucose 238 H 08/15/21 21:13: POC Glucose 221 H 08/16/21 05:40: POC Glucose 171 H 08/16/21 06:54: WBC 8.4, RBC 3.42 L, Hgb 10.0 L, Hct 31.4 L, MCV 91.6, MCH 29.3, MCHC 31.9, RDW 16.7, Plt Count 171, MPV 8.6, Neut % (Auto) 79.1, Lymph % (Auto) 13.0, [place] % (Auto) 4.1, Eos % (Auto) 3.1, Baso % (Auto) 0.6, Neut # (Auto) 6.6, Lymph # (Auto) 1.1, [place] # (Auto) 0.4, Eos # (Auto) 0.3, Baso # (Auto) 0.1 08/16/21 06:54: Sodium 135 L, Potassium 3.0 L, Chloride 110 H, Carbon Dioxide 24, Anion Gap 4.0 L, BUN 31 H, Creatinine 1.40 H, Estimated Creat Clear 34, Estimated GFR 39 L, Est GFR ( Amer) 47 L, Glucose 174 H D, Calcium 7.8 L 08/16/21 06:54: PT 18.6 H, INR 1.71 H I & O for Last 24 hours: Intake & Output 08/13/21 08/14/21 08/15/21 08/16/21 11:59 11:59 11:59 11:59 Intake Total 2323 / 2323 300 / 300 1800 / 1800 480 / 480 Output Total 1450 / 1450 1950 / 1950 1974 / 1974 1250 / 1250 Balance 873 / 873 -1650 / -1650 -175 / -175 -770 / -770 Weight 227 lb 2 oz 228 lb 8 oz 226 lb 3.2 oz 231 lb 8 oz Microbiology Reports for the Last 24 Hours: Microbiology 08/11/21 09:02 Sputum - Nasotracheal Suction Gram Stain - Final 08/11/21 09:02 Sputum - Nasotracheal Suction Sputum Culture - Preliminary - Constitutional no acute distress Comments: After awakening patient was alert. She assisted with exam by sitting up in the bed. - *Routine Respiratory Exam Present: CTA bilaterally (Anteriorly and posteriorly with good air movement.) - *Routine Cardiovascular Exam Present: RRR (70s per minute) - *Routine Abdominal Exam Present: soft, normoactive bowel sounds. Absent: tenderness - *Routine Extremities Exam Absent: edema, calf tenderness - *Routine Neurological Exam Present: alert Assessment and Plan (1) Acute renal failure Status: Acute Qualifiers: Acute renal failure type: unspecified Qualified Code(s): N17.9 - Acute kidney failure, unspecified Category: Medical Code(s): N17.9 - Acute kidney failure, unspecified (2) Hypovolemic shock Status: Acute Category: Medical Code(s): R57.1 - Hypovolemic shock (3) Dehydration Status: Acute Category: Medical Code(s): E86.0 - Dehydration (4) Rotavirus enteritis Status: Acute Category: Medical Code(s): A08.0 - Rotaviral enteritis (5) Diarrhea Status: Acute Qualifiers: Diarrhea type: presumed infectious Qualified Code(s): R19.7 - Diarrhea, unspecified Category: Medical Code(s): R19.7 - Diarrhea, unspecified (6) Hyperkalemia Status: Acute Category: Medical Code(s): E87.5 - Hyperkalemia (7) UTI (urinary tract infection) Status: Acute Qualifiers: Urinary tract infection type: site unspecified Hematuria presence: with hematuria Qualified Code(s): N39.0 - Urinary tract infection, site not specified; R31.9 - Hematuria, unspecified Category: Medical Code(s): N39.0 - Uri
[2021-08-16 08:26] LABS: Eosinophils % 3 % (0-3); Lymphocytes % 17 % (10-50); Monocytes % 1 % (2-9); Neutrophils % 79 % (42-76); Total Cells Counted 100
[2021-08-16 08:27] LABS: Nucleated Red Blood Cells 1; Platelet Estimate Normal
[2021-08-16 08:28] LABS: Anisocytosis 1+; Poikilocytosis 1+
[2021-08-16 08:42] LABS: Magnesium 1.8 mg/dl (1.6-2.3)
--- NOTE | 2021-08-16 09:02 | HMH.PTEV ---
Physical Therapy Evaluation Rehab PT IP Evaluation Start: 08/16/21 08:10 Freq: .once Status: Active Protocol: Document 08/16/21 08:57 NELSY (Rec: 08/16/21 09:02 NELSY [id number]) Subjective/History History History This is the initial IP PT eevalaution for Margareth Cardona. Pt is a 55 y/o female admitted to [facility] through ED for AMS, dehydration, and electrolyte imbalances. Pt is normally fully independent and lives at home w/ . Subjective Subjective pt reports feeling better and willing to work with therapy Rehab PT IP Eval Objective Appearance Patient Behavior Appropriate,Cooperative Patient Orientation Place,Name,Birthday,Year Difficulty following instructions none Speech Pattern Clear,Appropriate,Soft-Spoken Ambulation Patient Able to Ambulate Yes Ambulation Observation IP General Gait Pattern Observation Shuffling Step Ambulation Distance (feet) 5 Ambulation Assistive Device None Ambulation Ability Contact Guard/Hand Hold, Minimal x 1 (25% assist) Balance Ability to Arise Able, uses arms to help Sitting Balance Steady, safe Standing Balance Unsteady Dynamic Sitting Balance Ability Good Dynamic Standing Balance Ability Fair Transfers Chair Transfer Ability Contact Guard/Hand Hold Sit to Stand Bed Transfer Ability Contact Guard/Hand Hold, Minimal x 1 (25% assist) Sit to Stand Chair Transfer Ability Contact Guard/Hand Hold, Minimal x 1 (25% assist) Rehab PT IP prob,goals,plan Problems Date of Evaluation: 08/16/21 PT IP Problems Bed Mobility,Transfers,Gait, Balance,Self care Rehab Potential Rehab Potential Fair Equipment Needs Assistive Devices Rolling / Wheeled Walker Plan PT Intervention Plan Bed Mobility,Transfers,Gait, Balance,Self care,Safety, Therapeutic Exercise PT Plan Frequency BID Duration LOS Discharge Goals Bed Transfer Ability Contact Guard/Hand Hold Sit to Stand Chair Transfer Ability Contact Guard/Hand Hold Ambulation Assistive Device Rolling Walker Ambulation Distance (feet) 10 Discharge Plan PT Discharge Plan If pt continues to improve as she has she will be able to return home w/ spouse, and
--- NOTE | 2021-08-16 10:03 | HMH.OTEV ---
OT Inpatient Evaluation Rehab OT IP Evaluation Start: 08/16/21 08:10 Freq: ONCE Status: Complete Protocol: Document 08/16/21 09:49 STANISLAW (Rec: 08/16/21 10:02 [email or web address] [id number]) Rehab OT IP Assessment Subjective History 55 year old female referred to skilled OP OT with a history of renal issues followed by nephrology, diabetes mellitus, hypertension, hyperlipidemia, esophageal reflux, mechanical valve replacement in 2005. She also suffers with chronic pain, COPD, cervical disc disease, depression and anxiety, and peptic ulcer disease. Patient was brought to [facility] emergency room for evaluation when she had altered mental status and progressive weakness after suffering with diarrhea for several days. Darrhea started on 08/03/2021 and she also had a sore throat . She went to the urgent treatment center and was told she had strep throat and was started on Augmentin. She also received an injection of Rocephin. Her diarrhea continued. Her states she ate 2 cans of chicken noodle soup 2 days ago and retained. She has not vomited in several days. She has been able to walk to the bathroom with assistance until yesterday. Patient does say no to chest pain and shortness of breath. She also states no to abdominal pain. In the emergency room she was felt to be hypovolemic and shocky with dehydration and with a elevated potassium. On admission to the emergency room she had a temperature of 97.1. BP was low at 72/33 and 67/24. Laboratory data showed a white blood cell
--- NOTE | 2021-08-16 10:26 | HMH.ORTHPN ---
Subjective Date: 08/16/21 <Yoli Ferrer - 08/16/21 10:53> Time: 08:30 <Yoli Ferrer 08/16/21 10:53> Principal diagnosis: Left foot plantar wound <Yoli Ferrer - 08/16/21 10:53> Interval history: Patient awake, alert and verbal this morning. Sitting up in bed eating breakfast. She denies pain. No acute distress noted. remain at bedside. Both patient and made no request. Left foot plantar wound debrided with a 15 blade without incident. Patient was started on IV vancomycin by PCP for management of possitive wound culture results MRSA. <Yoli Ferrer 08/16/21 10:53> PN: Obj Ex Vital signs: Temp Pulse Resp BP Pulse Ox 98.3 F 76 18 188/75 H 99 08/16/21 16:00 08/16/21 16:00 08/16/21 16:00 08/16/21 16:00 08/16/21 16:00 <KatjaZulema robbins - 08/16/21 17:49> Temp Pulse Resp BP Pulse Ox 98.1 F 78 17 152/74 H 94 L 08/16/21 08:00 08/16/21 08:00 08/16/21 08:00 08/16/21 08:00 08/16/21 08:00 <Yoli Ferrer 08/16/21 10:53> - Constitutional no acute distress <Yoli Ferrer 08/16/21 10:53> - Routine HEENT Exam Head: Present: normocephalic <Yoli Ferrer 08/16/21 10:53> Eye: Present: EOMI <Yoli Ferrer 08/16/21 10:53> - Routine Neck Exam Present: supple <Yoli Ferrer 08/16/21 10:53> - Routine Respiratory Exam Absent: respiratory distress <Yoli Ferrer 08/16/21 10:53> - Routine Cardiovascular Exam Present: RRR <Yoli Ferrer 08/16/21 10:53> - Routine Abdominal Exam Present: soft <Yoli Ferrer 08/16/21 10:53> - Routine Extremities Exam Present: tenderness (left plantar wound) <Yoli Ferrer - 08/16/21 10:53> - Detailed Lower Extremity Exam Foot/Toes: Left swelling, Left tenderness, Left wound (plantar wound), Bilateral hammer toe <Yoli Ferrer - 08/16/21 10:53> Bottom foot image: 1 - Patient left foot plantar wound sharply excisionally debrided with a 15 blade through skin/subq. No drainage noted. Elke wound erythema and edama improved. Post debridement measured 0.8 x 0.5 x 0.2 cm. Wound base 100 % granular. <Yoli Ferrer - 08/16/21 10:53> - Urinary Catheter Management Dugan Cath placed during this visit: no <Zulema Hightower - 08/16/21 17:49> no <Yoli Ferrer - 08/16/21 10:53> Progress Note: A&P (1) Acute renal failure Status: Acute (2) Hypovolemic shock Status: Acute (3) Dehydration Status: Acute (4) Rotavirus enteritis Status: Acute (5) Diarrhea Status: Acute (6) Hyperkalemia Status: Acute (7) UTI (urinary tract infection) Status: Acute (8) HLD (hyperlipidemia) Status: Chronic (9) HTN (hypertension) Status: Chronic (10) Obesity, Class II, BMI 35-39.9 Status: Chronic (11) PAD (peripheral artery disease) Start date: 08/16/21 Start time: 08:30 Status: Acute (12) Type 2 diabetes mellitus, with long-term current use of insulin Start date: 08/16/21 Start time: 08:30 Status: Acute (13) CKD (chronic kidney disease) Status: Acute (14) Tremor Status: Acute (15) Hyponatremia Status: Acute (16) Hypomagnesemia Status: Acute (17) Uremic encephalopathy Status: Acute (18) Diabetic foot Start date: 08/16/21 Start time: 08:30 Status: Acute (19) Osteoarthritis of feet, bilateral Start date: 08/16/21 Start time: 08:30 Status: Chronic (20) Nail dystrophy Start date: 08/16/21 Start time: 08:30 Status: Chronic (21) Acquired hammertoes of both feet Start date: 08/16/21 Start time: 08:30 Status: Chronic (22) Open wound of left foot Start date: 08/16/21 Start time: 08:30 Status: Chronic (23) MRSA (methicillin resistant staph aureus) culture positive Start date: 08/16/21 Start time: 08:30 Status: Acute <Yoli Ferrer -
--- NOTE | 2021-08-16 11:19 | SW/DCPLANNER ---
I spoke with patient and her this AM regarding plans once medically stable for discharge. Patient stated that she resides at home with her . Patient stated that she plans to return home at time of discharge. I discussed options of home health and outpatient rehab: patient stated that she would rather come back to outpatient rehab services. I will continue to follow up with patient until medically stable for discharge.
--- NOTE | 2021-08-16 12:51 | PC.NURSE ---
PT IS SITTING UP IN THE CHAIR WITH FAMILY AT BEDSIDE. ALERT AND ORIENTED X3. PT IS ANSWERING QUESTIONS W/O DIFFICULTY AND FOLLOWING COMMANDS. MEDICATED PER MAR FOR HEADACHE AND NAUSEA. PT'S APPETITE HAS BEEN POOR BUT SHE IS TOLERATING LIQUIDS WELL. LUNG SOUNDS HAVE SCATTERED WHEEZES. ABDOMEN LARGE/SOFT NON TENDER WITH ACTIVE BOWEL SOUNDS. SWELLING NOTED TO BUE/BLE. PT HAS REQUESTED FOR CATHETER TO BE DC'D (NOTIFIED OFFICE). PT HAS BEEN A 1 ASSIST TO GET OOB AND UP TO THE [facility]. WILL CONTINUE TO MONITOR.
[2021-08-16 14:27] LABS: Vancomycin,Trough 9.6 ug/mL (5.0-10.0)
--- NOTE | 2021-08-16 14:31 | DIET.NUTRFU ---
RD tried to visit after lunch today to review meal intake. Nursing reported she has been more alert and possible eating slightly better. When visited she was still very lethargic and barely opened her eyes and would not answer any questions. Will continue to monitor meal intake
--- NOTE | 2021-08-16 15:31 | HMH.PHACONS ---
- Pharmacy Consult Date: 08/16/21 Time: 15:31 Referring provider: DR. ARROYO Reason for Consult:: VANCOMYCIN TROUGH LEVEL AND DOSE ADJUSTMENT Allergies and ADEs:: Allergies Allergy/AdvReac Type Severity Reaction Status Date / Time codeine [CODEINE] Allergy Unknown Nausea Verified 08/08/21 23:23 Home Medications:: Home Medications Medication Instructions Recorded Confirmed Type cyanocobalamin (vitamin B-12) 500 500 mcg PO DAILY tab 10/03/17 08/08/21 History mcg tablet metoprolol tartrate 25 mg tablet 25 mg PO BID 90 Days #180 tab 10/03/17 08/08/21 History multivitamin 1 tab PO DAILY 10/03/17 08/09/21 History omega-3 fatty acids 1,000 mg 2,000 mg PO BID cap 10/03/17 08/08/21 History capsule pantoprazole 40 mg tablet,delayed 40 mg PO BID 90 Days #90 12/04/17 08/09/21 History release Metformin HCl [Metformin 500mg 1,000 mg PO BIDWMEAL 02/08/18 08/09/21 History Tablet] levothyroxine 50 mcg tablet 50 mcg PO DAILY #30 tab 03/06/19 08/08/21 History estradiol 1 mg tablet 1 mg PO DAILY tab 08/06/19 08/08/21 History warfarin 5 mg tablet 10 mg PO DAILY 30 Days #60 08/06/19 08/09/21 History quetiapine 100 mg tablet 200 mg PO DAILY tab 07/23/20 08/09/21 History Atorvastatin Calcium [Lipitor 40mg 40 mg PO HS 08/08/21 08/08/21 History Tab] Calcium Carb, Citrate/Vit D3 600 mg PO DAILY 08/08/21 08/08/21 History [Calcium + D3 ER Tablet] Escitalopram Oxalate 20 mg PO DAILY 08/08/21 08/08/21 History Glucosamine Sulfate Dipot Chlr 1,000 mg PO DAILY 08/08/21 08/08/21 History [Glucosamine] Medroxyprogesterone Acetate 5 mg PO DIRECTED 08/08/21 08/09/21 History Amoxicillin/Potassium Clav 1 tab PO BID 08/09/21 08/09/21 History [Amox-Clav 875-125 mg Tablet] Empagliflozin [Jardiance] 25 mg PO DAILY 08/09/21 08/09/21 History Glimepiride [Amaryl 2mg tablet] 4 mg PO DAILY 08/09/21 08/09/21 History Glimepiride [Amaryl] 2 mg PO HS 08/09/21 08/09/21 History Insulin Glargine,Hum.rec.anlog 50 units SQ DAILY 08/09/21 08/09/21 History [Toujeo Solostar] Pregabalin [Lyrica 200mg Cap] 200 mg PO TID 08/09/21 08/09/21 History buPROPion HCL [Bupropion Xl] 300 mg PO DAILY 08/09/21 08/09/21 History lisinopriL [Lisinopril] 10 mg PO DAILY 08/09/21 08/09/21 History metroNIDAZOLE [metroNIDAZOLE 500mg 500 mg PO TID 08/09/21 08/09/21 History Tablet] ondansetron HCL [Ondansetron 4mg 4 mg PO TIDP PRN 08/09/21 08/09/21 History tab*] Height: 1.57 m Weight: 105.007 kg Laboratory Results:: Laboratory Results - last 24 hr 08/15/21 06:31: POC Glucose 293 H 08/15/21 16:42: POC Glucose 238 H 08/15/21 21:13: POC Glucose 221 H 08/16/21 05:40: POC Glucose 171 H 08/16/21 06:54: WBC 8.4, RBC 3.42 L, Hgb 10.0 L, Hct 31.4 L, MCV 91.6, MCH 29.3, MCHC 31.9, RDW 16.7, Plt Count 171, MPV 8.6, Neut % (Auto) 79.1, Lymph % (Auto) 13.0, [place] % (Auto) 4.1, Eos % (Auto) 3.1, Baso % (Auto) 0.6, Neut # (Auto) 6.6, Lymph # (Auto) 1.1, [place] # (Auto) 0.4, Eos # (Auto) 0.3, Baso # (Auto) 0.1, Total Counted 100, Neutrophils % (Manual) 79 H, Lymphocytes % (Manual) 17, Monocytes % (Manual) 1 L, Eosinophils % (Manual) 3, Nucleated RBCs 1, Platelet Estimate Normal, Poikilocytosis 1+, Anisocytosis 1+ 08/16/21 06:54: Sodium 135 L, Potassium 3.0 L, Chloride 110 H, Carbon Dioxide 24, Anion Gap 4.0 L, BUN 31 H, Creatinine 1.40 H, Estimated Creat Clear 34, Estimated GFR 39 L, Est GFR ( Amer) 47 L, Glucose 174 H D, Calcium 7.8 L 08/16/21 06:54: PT 18.6 H, INR 1.71 H 08/16/21 06:54: Magnesium 1.8 D 08/16/21 11:30: Vancomycin Trough 9.6 Medical History: Reports:: Anxiety, Chronic Obstructive Pulmonary Disease (COPD), Depression, Diabetes Mellitus Type 2, Gall Bladder Disease, Gastroesophageal Reflux Disease(GERD), Heart Murmur, Hyperlipidemia, Hypertension, MRSA, Renal Disease, Renal Insufficiency, Valvular Heart Disease Denies:: Cancer, Diabetes Mellitus Type 1, Internal Pacemaker, Seizures Assessment and Plan (1) Acute renal failure Status: Acu
[2021-08-16 16:31] LABS: POC Glucose,Bedside 244 (70-110)
[2021-08-16 16:31] LABS: POC Glucose,Bedside 257 (70-110)
[2021-08-16 23:28] LABS: POC Glucose,Bedside 198 (70-110)
[2021-08-17] VITALS (8 sets, daily range): BP systolic 169–209; BP diastolic 78–120; PULSE 70–90; RESP 15–20; TEMP 36.3–36.9; O2SAT 93–96; BMI 41.8
--- NOTE | 2021-08-17 06:26 | PC.NURSE ---
Pt refused Duoneb breathing tx at this time states it doesn't help anything and she is too sick to take it. SPO2 95% HR 84 RR 16 Bilateral Breath sounds Clear and Equal. No respiratory distress noted. No respiratory distress noted. Will continue to monitor.
[2021-08-17 06:27] LABS: POC Glucose,Bedside 303 (70-110)
--- NOTE | 2021-08-17 07:10 | PC.NURSE ---
Addendum entered by Anastasiya Piedra RN 08/17/21 07:31: Patient c/o headache treated with medication per jul. Original Note: Lab notified this nurse that they are currently unable to draw blood from patient due to patient being a hard stick. 3 different techs attempted. Patient sitting on side of bed and continues to move arm when they attempt.
--- NOTE | 2021-08-17 08:15 | HMH.ACPN2 ---
<Yari Vicente - Last Filed: 08/17/21 08:50> Internal Medicine - PN: Subj *Date: 08/17/21 *Time: 08:50 Interval history: has been at bedside throughout the night. He states she slept until about middle a.m. and then awakened with a headache. She sat on the bedside for quite a while. She has just laid down and is snoring. She did not want to eat breakfast due to the headache. She did have a dose of tramadol at 6:07 AM.Blood pressure remains high at 174/99. She is afebrile. She was seen by PT and OT yesterday. She is able to ambulate with 1 person assist. Exam Vital signs and Labs for Last 24 Hours: Temp Pulse Resp BP Pulse Ox 97.5 F L 77 19 174/99 H 94 L 08/17/21 07:57 08/17/21 07:57 08/17/21 07:57 08/17/21 07:57 08/17/21 07:57 Laboratory Results - last 24 hr 08/16/21 06:54: Total Counted 100, Neutrophils % (Manual) 79 H, Lymphocytes % (Manual) 17, Monocytes % (Manual) 1 L, Eosinophils % (Manual) 3, Nucleated RBCs 1, Platelet Estimate Normal, Poikilocytosis 1+, Anisocytosis 1+ 08/16/21 06:54: Magnesium 1.8 D 08/16/21 11:10: POC Glucose 257 H 08/16/21 11:30: Vancomycin Trough 9.6 08/16/21 16:21: POC Glucose 244 H 08/16/21 20:11: POC Glucose 198 H 08/17/21 05:55: POC Glucose 303 H* I & O for Last 24 hours: Intake & Output 08/14/21 08/15/21 08/16/21 08/17/21 11:59 11:59 11:59 11:59 Intake Total 300 / 300 1800 / 1800 600 / 600 120 / 120 Output Total 1950 / 1950 1974 / 1974 1250 / 1250 600 / 600 Balance -1650 / -1650 -175 / -175 -650 / -650 -480 / -480 Weight 228 lb 8 oz 226 lb 3.2 oz 231 lb 8 oz 227 lb 9.6 oz Microbiology Reports for the Last 24 Hours: Microbiology 08/11/21 09:02 Sputum - Nasotracheal Suction Gram Stain - Final 08/11/21 09:02 Sputum - Nasotracheal Suction Sputum Culture - Preliminary Gram Negative Rods - Constitutional no acute distress Comments: Sleeping and is snoring - *Routine Respiratory Exam Present: CTA bilaterally - *Routine Cardiovascular Exam Present: RRR - *Routine Abdominal Exam Present: soft, normoactive bowel sounds. Absent: tenderness - *Routine Extremities Exam Present: edema - *Routine Neurological Exam Present: alert (Patient has been alert and oriented. She is sleeping this a.m. and not awakened for exam) Assessment and Plan (1) Acute renal failure Status: Acute Qualifiers: Acute renal failure type: unspecified Qualified Code(s): N17.9 - Acute kidney failure, unspecified Category: Medical Code(s): N17.9 - Acute kidney failure, unspecified (2) Hypovolemic shock Status: Acute Category: Medical Code(s): R57.1 - Hypovolemic shock (3) Dehydration Status: Acute Category: Medical Code(s): E86.0 - Dehydration (4) Rotavirus enteritis Status: Acute Category: Medical Code(s): A08.0 - Rotaviral enteritis (5) Diarrhea Status: Acute Qualifiers: Diarrhea type: presumed infectious Qualified Code(s): R19.7 - Diarrhea, unspecified Category: Medical Code(s): R19.7 - Diarrhea, unspecified (6) Hyperkalemia Status: Acute Category: Medical Code(s): E87.5 - Hyperkalemia (7) UTI (urinary tract infection) Status: Acute Qualifiers: Urinary tract infection type: site unspecified Hematuria presence: with hematuria Qualified Code(s): N39.0 - Urinary tract infection, site not specified; R31.9 - Hematuria, unspecified Category: Medical Code(s): N39.0 - Urinary tract infection, site not specified (8) HLD (hyperlipidemia) Status: Chronic Qualifiers: Hyperlipidemia type: other hyperlipidemia Qualified Code(s): E78.49 - Other hyperlipidemia Category: Medical Code(s): E78.5 - Hyperlipidemia, unspecified (9) HTN (hypertension) Status: Chronic Qualifiers: Hypertension type: essential hypertension Category: Medical Code(s): I10 - Essential (primary) hypertension (10) Obesity, Class II, BMI 35-39.9
--- NOTE | 2021-08-17 08:32 | XR_ITS ---
FINAL REPORT CLINICAL HISTORY: f/u pneumonia COMPARISON: August 11, 2021 FINDINGS: SINGLE VIEW CHEST. The heart is normal in size. There are postoperative changes for median sternotomy. The mediastinum is unremarkable. There is worsening right lung opacities consistent with worsening pneumonia. There is no pneumothorax. IMPRESSION: Findings consistent with worsening pneumonia. Reviewed, Interpreted and Dictated by Sameer Forde III, MD Transcribed by Jess Ivan Authenticated by Sameer Forde III, MD on 08/17/2021 09:28:25 AM [facility]
[2021-08-17 09:40] LABS: Alanine Aminotransferase 36 U/L (12-78); Albumin Level 3.1 g/dl (3.5-5.0); Alkaline Phosphatase 98 U/L (38-126); Anion Gap 10.2 mEq/L (5-15); Aspartate Amino Transferase 37 U/L (14-36); Bilirubin,Total 0.6 mg/dl (0.2-1.3); Blood Urea Nitrogen 24 mg/dl (7-17); Calcium 7.9 mg/dl (8.4-10.2); Carbon Dioxide 21 mmol/L (22.0-30.0); Chloride 105 mmol/L (98-107); Creatinine Clearance Estimated 40 mL/min (50-200); Estimated Glomerular Filt Rate 46 ml/min (>60); GFR (African American) 56 ML/MIN (>60); Glucose 314 mg/dl (74-100); Potassium 3.2 mmoL/L (3.5-5.1); Prothrombin Time 30.3 seconds (10.1-12.5); Sodium 133 mmol/L (136-145); Total Protein,Serum 6.1 g/dl (6.3-8.2)
[2021-08-17 11:59] LABS: POC Glucose,Bedside 314 (70-110)
--- NOTE | 2021-08-17 12:16 | PC.NURSE ---
BP elevated, hydralizine given per jul. Pt resting.
--- NOTE | 2021-08-17 13:22 | CT_ITS ---
FINAL REPORT CLINICAL HISTORY: AMS COMPARISON: August 08, 2021 FINDINGS: Axial images of the head were obtained without contrast. Coronal reformatted images were also obtained.This study was performed with techniques to keep radiation doses as low as reasonably achievable (ALARA). Individualized dose reduction techniques using automated exposure control or adjustment of mA and/or kV according to the patient's size were employed. There are new bilateral acute to subacute subdural hemorrhages measuring up to 10 mm in thickness on the right and 11 mm in thickness on the left. The ventricular size is within normal limits. There is no evidence of shift of the midline structures. No abnormal extra axial fluid collection is identified. No skull abnormality is seen on the bone window images. IMPRESSION: New bilateral acute to subacute subdural hemorrhages as described. These results were called to Marylu Sheridan at the time of interpretation. Reviewed, Interpreted and Dictated by Sameer Forde III, MD Transcribed by Jess Ivan Authenticated by Sameer Forde III, MD on 08/17/2021 03:45:04 PM [facility]
--- NOTE | 2021-08-17 13:56 | PC.NURSE ---
Pt down for CT at this time.
--- NOTE | 2021-08-17 15:43 | PC.NURSE ---
Called and spoke with Dr. Ocasio in RE to Rad report after speaking w/ Dr. Pacheco stating pt has bilateral subdural hematomas- hemorrhage. Dr. Ocasio stated pt would need to be transferred to . At bedside at this time and pt is a/o x 3. BP currently 189/97, HR 90. Awaiting CB from Dr. Ocasio. Pt did also have an episode of weakness this am when transferring from [facility] to bed.
--- NOTE | 2021-08-17 16:56 | PC.NURSE ---
Pt was transferred to via EMS @ 1630. Spoke with Meche in ED at to make her aware pt was on en route. Dr. Ocasio came and spoke with pt and family in Re to status and plan of tx.
--- NOTE | 2021-08-17 17:05 | PC.NURSE ---
Report called to Meche @ [facility] ED.
--- NOTE | 2021-08-20 15:42 | HMH.DCSUM ---
General - General Admission date:: 08/08/21 <Prabhakar Ocasio - 09/07/21 08:58> 08/08/21 <Dennise Quiroga - 08/20/21 16:08> Discharge date: 08/17/21 <KimberDennise - 08/20/21 16:08> HPI HPI: Ms. Cardona is a 55-year-old female with a history of renal issues followed by nephrology, diabetes mellitus, hypertension, hyperlipidemia, esophageal reflux, mechanical valve replacement in 2005. She also suffers with chronic pain, COPD, cervical disc disease, depression and anxiety, and peptic ulcer disease. Patient was brought to [facility] emergency room for evaluation when she had altered mental status and progressive weakness after suffering with diarrhea for several days. Diarrhea started on 08/03/2021 and she also had a sore throat. She went to the urgent treatment center and was told she had strep throat and was started on Augmentin. She also received an injection of Rocephin. Her diarrhea continued. Her states she ate 2 cans of chicken noodle soup 2 days ago and retained. She has not vomited in several days. She has been able to walk to the bathroom with assistance until yesterday. Patient does say no to chest pain and shortness of breath. She also states no to abdominal pain. In the emergency room she was felt to be hypovolemic and shocky with dehydration and with a elevated potassium. On admission to the emergency room she had a temperature of 97.1. BP was low at 72/33 and 67/24. Laboratory data showed a white blood cell count of 5400 with a hemoglobin of 10.8 and hematocrit of 34.5; normal lactate was 0.9. INR was elevated at 5.75. Chemistries revealed a sodium of 134, potassium of 6.2; BUN 106 and creatinine of 11.2. She was started on a norepinephrine drip and given fluid boluses. She was also started on Rocephin and metronidazole IV. Chest x-ray revealed No acute thoracic pathology. CT of the head revealed a 7 mm hyperdense ovoid structure near the vicinity of the third ventricle favoring to be a small collateral cyst and No acute intracranial pathology. CTof the abdomen/pelvis revealed no acute abdominal pelvic pathology. This a.m. patient is able to say yes and no. She followed commands and assisted somewhat with exam. <Dennise Quiroga - 08/20/21 16:08> Hospital Course Hospital Course: The patient's stool returned positive for rotavirus. She was started on IV fluids and her renal function did improve slightly. Initially during her stay, she was mostly unresponsive. She was maintained on a Levophed drip. Her urinalysis showed pyuria, therefore she was started on Rocephin pending cultures. She did have a left foot x-ray showing a focal ulceration of the plantar aspect of the midfoot but no evidence of osteomyelitis. Podiatry was consulted. There was no plans for surgical intervention and wound care was started. The patient had good urinary output and IV fluids were decreased. She was started on 5 mg of metoprolol for elevated blood pressure and her metronidazole was discontinued once it was known she had rotavirus. Her blood and urine cultures showed no growth after 48 hours. Her renal function improved. Her sensorium was still obtunded, although she could open her eyes but could not respond to questions. She was unable to take p.o. meds, so her metoprolol was made IV. A chest x-ray was ordered which showed bilateral patchy infiltrates consistent with pneumonia. The concern was for aspiration due to her altered mental status and her antibiotics were escalated to Zosyn and duo nebs were added. Valium was added due to the patient's tremors. She did would become somewhat more responsive by 08/11/2021. It was questioned whether she could be having some withdrawal from her Lyrica and/or bupropion. Her sodium was elevated and her magnesium was low, therefore IV fluids were changed to D5 half-normal saline and she was started on IV mag sulfate for replacement. She had a repeat chest x-ray [facility]
== END 2021-08-17 16:30 | disposition short-term general hospital (02) | DRG 673 ==
LOC: ER 12:59 → 2ND 18:51
PROVIDERS: Podiatrist; Admitting Provider Family Medicine; Emergency Provider Emergency Medicine; PCP Family Medicine; Visit Provider Family Medicine
DX: N17.9 Acute kidney failure, unspecified (principal); R57.1 Hypovolemic shock; I62.01 Nontraumatic acute subdural hemorrhage; J18.9 Pneumonia, unspecified organism; A08.0 Rotaviral enteritis; N39.0 Urinary tract infection, site not specified; L97.422 Non-pressure chronic ulcer of left heel and midfoot with fat layer exposed; E87.1 Hypo-osmolality and hyponatremia; G93.49 Other encephalopathy; E86.0 Dehydration; E87.5 Hyperkalemia; J02.0 Streptococcal pharyngitis; E11.610 Type 2 diabetes mellitus with diabetic neuropathic arthropathy; Z79.4 Long term (current) use of insulin; E11.621 Type 2 diabetes mellitus with foot ulcer; E11.51 Type 2 diabetes mellitus with diabetic peripheral angiopathy without gangrene; K21.9 Gastro-esophageal reflux disease without esophagitis; E78.5 Hyperlipidemia, unspecified; Z95.2 Presence of prosthetic heart valve; Z87.891 Personal history of nicotine dependence; E66.9 Obesity, unspecified; Z68.35 Body mass index [BMI] 35.0-35.9, adult; M19.072 Primary osteoarthritis, left ankle and foot; M19.071 Primary osteoarthritis, right ankle and foot; E11.40 Type 2 diabetes mellitus with diabetic neuropathy, unspecified; E83.42 Hypomagnesemia; E11.22 Type 2 diabetes mellitus with diabetic chronic kidney disease; I12.9 Hypertensive chronic kidney disease with stage 1 through stage 4 chronic kidney disease, or unspecified chronic kidney disease; N18.9 Chronic kidney disease, unspecified; R25.1 Tremor, unspecified
CPT/HCPCS: 11042; 36415; 70450; 71045; 73630; 74176; 80048; 80053; 80202; 81001; 82962; 83605; 83735; 83935; 84484; 85007; 85014; 85018; 85025; 85048; 85049; 85610; 85651; 86140; 87040; 87070; 87077; 87086; 87186; 87205; 87506; 93005; 94640; 96365; 96366; 96375; 97162; 97165; 97530; 99285; C9803; J0696; J2405; J2543; J3475; U0003; U0005